=== PATIENT | female | born 1950 | race Caucasian/White ===

== ENCOUNTER → 2017-04-17 | Day surgery (SDC) | payer BC ==
[2017-03-27 13:47] VITALS: Ht 157.5 cm; Wt 75.0 kg
[~2017-04-17] VITALS: Ht 157.5 cm; Wt 75.0 kg
[~2017-04-17] MED LIST: ACET1TAB84 PO; BUPIVACAINE 0.25% 2.5MG/ML PF 10 ML VIAL ONE; EPP3/2 IM; IOPAMIDOL INJ 61% 15 ML VIAL ONE; LIDOCAINE HCL 1% MPF 5 ML VIAL ONE; LORA10CA2 PO; MELO15TA10 PO; MONT1TAB3 PO
--- NOTE | 2017-04-17 14:00 | History & Physical Bridge - SC ---
H&P Re-Evaluation Bridge Note: I have examined the patient, reviewed the History & Physical and in the interval since the performance of the History & Physical I have noted the following changes of clinical significance: No changes noted
[2017-04-17 14:17] VITALS: TEMP 36.6
--- NOTE | 2017-04-17 14:23 | Discharge Instructions ---
Discharge Instructions Date of Service Apr 17, 2017. Visit Reason for Visit: Sacroiliitis Discharge Discharge Diagnosis / Problem: low back pain Discharge Goals Goal(s): Decrease discomfort, Improve function Activity Recommendations Activity Limitations: resume your previous activity Anesthesia . Post Anesthesia Instructions: If you have had General Anesthesia or IV Sedation: * Do not drive today. * Resume driving when surgeon permits. * Do not make important decisions or sign legal documents today. * Call surgeon for: 1. Temperature elevations greater than 101 degrees F. 2. Uncontrollable pain. 3. Excessive bleeding. 4. Persistent nausea and vomiting. 5. Medication intolerance (nausea, vomiting or rash). * For nausea and vomiting use only clear liquids such as: tea, soda, bouillon until nausea subsides, then gradually increase diet as tolerated. * If you have any concerns or questions, call your surgeon's office. If physician is unavailable and it is an emergency, call 911 or go to the nearest emergency room. . Diet Recommendations Recommended Home Diet: resume previous diet Procedures Procedures Performed: LEFT SACROILIAC JOINT INJECTION Pending Studies Studies pending at discharge: no Medical Emergencies . Who to Call and When: Medical Emergencies: If at any time you feel your situation is an emergency, please call 911 immediately. . Non-Emergent Contact Non-Emergency issues call your: Specialist . . "Provider Documentation" section prepared by Murray Umanzor. .
[2017-04-17 14:30] VITALS: BP 135/75; PULSE 52; O2SAT 95
--- NOTE | 2017-04-17 16:13 | OPERATIVE REPORT ---
DATE OF OPERATION: 04/17/2017 PREOPERATIVE DIAGNOSIS: Left sacroiliitis. POSTOPERATIVE DIAGNOSIS: Same. PROCEDURE: Left sacroiliac joint injection under fluoroscopic guidance. INDICATIONS: The patient is a 66-year-old white female who underwent a left SI joint injection more than 2 years ago in April 2015. She reports that the pain has returned and is problematic to her. She was caring for her , who was in hospice and doing a lot of twisting and turning. She presents today for an SI joint injection to provide her with relief. PHYSICAL EXAMINATION: GENERAL: Pleasant female seated comfortably in no apparent distress. MUSCULOSKELETAL: Normal lower extremity strength. Intact sensation distally. Negative seated straight leg raise. Positive Audrey maneuver on the left and positive sacral compression maneuver. CONSENT: Verbal and written consent was obtained from the patient. Risks and benefits were reviewed. Risks include, but are not limited to abscess and allergic reaction. The patient wishes to proceed. DESCRIPTION OF PROCEDURE: The patient was taken back to the special procedures room of the [facility], where she was maintained in a prone position. Backside was cleansed with chlorhexidine x3 and a dry sterile dressing was applied. She did not have Betadine given her iodine allergy. Fluoroscope was used to identify the left SI joint and the overlying skin was anesthetized with 2.5 mL of lidocaine 1% with a 25-gauge 1-1/2 inch needle. A 25-gauge 3-1/2 inch spinal needle was then directed under fluoroscopic guidance into the joint. There was a give as it entered the joint. Isovue-300 contrast was not utilized given her allergic reaction and then she underwent injection after negative aspiration of 40 mg of Depo-Medrol and 2 mL of preservative free bupivacaine 0.25%. Injection was well tolerated. DISPOSITION: 1. The patient was taken out into the discharge recovery area, where she will be discharged home once discharge criteria have been met. 2. Follow up in the [facility] office in 4 weeks. I attest to the content of the Intraoperative Record and any orders documented therein. Any exception s are noted below.
== END | disposition home or self-care (01) ==
LOC: X.SURG 13:20
PROVIDERS: ATTEND Physical Medicine & Rehabilitation
DX: M46.1 Sacroiliitis, not elsewhere classified (principal)

== ENCOUNTER 2024-12-26 20:17 | Inpatient (IN) ==
--- OUTSIDE RECORDS SUMMARY | 2024-12-26 20:25 | External Medical Summary | Summary of Care ---
Author Name Unknown Organization [facility] Address [address] [facility] [place] [address] Phone [phone] Care Team Providers Care Security Control Assessor Name Role Phone Krystal Fuentes MD Primary Care Provide r Reason for Visit * Reason Comments Outpatient Testing Encounter Details Date Type Department Care Team (Late st Contact Info) Description 12/17/2024 8:50 AM EST Laboratory Laboratory [address] [place] [phone] [address] [place] [address] Renal cyst, right; Nephrolithiasis; Acute cystitis with hematuria Allergies No known active allergiesdocumented as of this encounter (statuses as of 12/17/2024) Medications loratadine (CLARITIN) 10 MG Tablet Take 1 Tablet by mouth in the morning. Active Acetaminophen ER 650 MG Oral Tablet Extended Release Take 1 Tablet by mouth every 8 hours as needed. Active Atorvastatin Calcium 20 MG Oral Tablet (Lipitor)Indicat ions:Dyslipidemi a, goal LDL below 130 Take 1 Tablet by mouth every night at bedtime. 90 Tablet 3 4 Active Meloxicam 15 MG Oral Tablet (Mobic)Indicatio ns:Primary localized osteoarthrosis, lower leg, unspecified laterality TAKE 1 PILL BY MOUTH ONCE A DAY FOR PAIN 90 Tablet 1 4 Active metFORMIN HCl 500 MG Oral Tablet (Glucophage)Cristina cations:Prediabe ximena Take 1 Tablet by mouth 2 times a day with morning and evening meals. 180 Tablet 1 4 Active Vitamin D3 1000 UNIT Oral Capsule Take by mouth. Activ e Nitrofurantoin Monohyd Macro 100 MG Oral Capsule (Macrobid)Indica tions:Acute cystitis without hematuria Take 1 Capsule by mouth in the morning and 1 Capsule before bedtime. Do all this for 10 days. With food until gone. 20 Capsule 5 12/21/19 25 Active Phenazopyridine HCl 200 MG Oral Tablet (Pyridium)Indica tions:Acute cystitis without hematuria Take 1 Tablet by mouth 3 times a day as needed (bladder pain). After meals for pain with urination 6 Tablet 1 5 Active documented as of this encounter (statuses as of 12/17/2024) Active Problems Problem Noted Date Diagnosed Date Trigger finger of right thumb 07/25/2023 Prediabetes 07/25/2023 Dyslipidemia, goal LDL below 100 07/25/2023 Calcium oxalate renal calculi 10/04/2019 Seasonal allergic rhinitis due to pollen 017 Need for SBE (subacute bacterial endocarditis) p rophylaxis 07/22/2016 Trigger ring finger of left hand 05/29/2015 Osteoarthrosis, unspecified whether generalized or localized, lower leg 04/17/2015 Lumbar pars defect 04/10/2015 Overview (05/29/2015): L5 Cough 03/27/2015 Overview (03/27/2015): since 01/08 Allergic conjunctivitis 03/27/2015 Bee sting-induced anaphylaxis 07/02/2013 Overview (03/28/2015): immediate nausea/vomiting, lightheadedness, dizziness and low blood pressure after sting by a ground insect Primary localized osteoarthrosis, lower leg Overview (06/12/2011): Dr Wallace, both knees documented as of this encounter (statuses as of 12/17/2024) Resolved Problems Problem Noted Date Diagnosed Date Resolved Date Severe obesity with body mas s index (BMI) of 35.0 to 39.9 with serious comorbidity 07/25/2023 Other allergic rhinitis 05/29/201503/28 Sacroiliitis 05/24/2015 04/13/2019 Overview (05/29/2015): left, injected Dr Umanzor Back pain 04/17/2015 05/29/2015 Shellfish allergy 03/28/2015 10/04/2019 Overview (08/18/2019): shrimp and lobster - immediate nausea and vomiting, shortness of breath, lightheadedness and low blood pressure; required emergency room Neg skin test and serum IgE Jul 2019 Pt does not want to proceed with challenge Ureterolithiasis 12/05/2013 05/29/2015 Overview (12/08/2013): punctate left ureteral calculus at UV junction with mild hydronephrosis Asthma with severity to be determined 04/19/2010 10/13/2013 Overview (02/05/2016): Per Asthma Taxonomy ICD-10 update of inactive term ADVANCE DIRECTIVE INFORMATION 08/01/2006 08/30/2024 Overview (08/01/2006): Yes, Copy scanned at patient level in the electronic medical record.(Go to Action, Patient File to view) Patient aware they must notify their healthcare provider of changes. Asthma, allergic 09/29/2001 04/19/2010 Other allergic rhinitis 12/2014 Overview (08/19/2017): ICD-10 update of inactive term Asthma, mild persistent 12/2014 documented as of this encounter (statuses as of 12/17/2024) Immunizations Name Administration Dates Next Due COVID-19 mRNA, LNP-s, No Pre serve, 2-Dose Series (Moderna) 01/04/2021,12/07/2020 COVID-19, MRNA-LNP, PF, 50 M CG/0.5 mL, 12 YRS AND ABOVE, IM (MODERNA-Spikevax) 07/05/2024,07/26/2023 COVID-19, mRNA, LNP-s, PF, B ooster, 100mcg/0.5mg (Moderna) 09/03/2021 Covid-19, Mrna, Lnp-s, Pf, B ivalent, 50 Mcg, IM, 12 yrs and above (Moderna) 07/26/2022 Pneumococcal Conjugate Vacc, 13 Valent (Prevnar) 07/22/2016 Pneumococcal Polysaccharide PPV23 (Pneumovax) ,06/12/2011 Season Influenza, Quad, PF, Adjuvanted, 65+ Yrs, IM (FLUAD) 07/08/2020 TDAP, Age 7 and older, IM (Adacel) 06/12/2011 documented as of this encounter Social History Tobacco Use Types Packs/Day Years Used Date Smoking Tobacco: Former Cigarettes 0.5 11 0 10/27/1968 - 10/27/1979 Smokeless Tobacco: Never Comments:no passive smoke Alcohol Use Standard Drinks/Week Comments No 0 (1 standard drink = 0.6 oz pur e alcohol) PHQ-2 Answer Date Recorded PHQ-2 Score 0 06/05/2020 Hunger Vital Sign Answer Date Recorded Within the past 12 months, y ou worried that your food would run out before you got the money to buy more. Never true 07/18/20 24 Within the past 12 months, t he food you bought just didn't last and you didn't have money to get more. Never true 07/18/2024 Childcare Answer Date Recorded Do you feel overwhelmed with taking care of a child, family member or friend? No 07/18/2024 Does your family need help f inding childcare? (Household - for ages 0-17 years) Not on file 07/18/2024 Clothing Answer Date Recorded Have you been unable to get clothing when it was really needed? No 07/18/2024 Is your family able to get c lothes or diapers when needed? (Household - for ages 0-17 years) Not on file 07/18/2024 Personal Safety Answer Date Recorded Do you feel unsafe or have concerns for your saf ety? No 07/18/2024 Do you have concerns for you r family's safety? (Household - for ages 0-17 years) Not on file 07/18/2024 Utilities Answer Date Recorded Do you have trouble paying y our heating, water, or electric bill? No 07/18/2024 Is your family able to pay t he heat, water, or electric bill? (Household - for ages 0-17 years) Not on file 07/18/2024 Does your family have access to good internet? (Household - for ages 0-17 years) Not on file 07/18/2024 Employment Status Answer Date Recorded Are you unemployed or without regular income? No 07/18/2024 Does the household have a re gular source of income? (Household - for ages 0-17 years) Not on file 07/18/2024 Social Connections Answer Date Recorded How often do you feel lonely or isolated from those around you? Sometimes 07/18/2024 Financial Resource Strain Answer Date R ecorded Do you have any trouble payi ng for your medications, or do you think you might in the future? No 07/18/2024 Does your family have troubl e paying for medicine? (Household - for ages 0-17 years) Not on file 07/18/2024 Transportation Needs Answer Date Record ed Do you have trouble getting a ride to medical visits or work? (Adult - for ages 18 years and over) Not on file 07/18/2024 Does your family have a hard time getting a ride to doctors visits? (Household - for ages 0-17 years) Not on file 07/18/2024 Has lack of transportation k ept you from medical appointments, meetings, work, or from getting things needed for daily living? Check all that apply. No 07/18/2024 Do you (or your family) have trouble finding or paying for a ride (transportation)? (Household - for ages 0-17 years) Not on file 07/18/2024 Housing Stability Answer Date Recorded Do you currently live in a s helter or have no steady place to sleep at night? No 07/18/2024 Do you think you are at risk of becoming homeless? (Adult - for ages 18 years and over) Not on file 07/18/2024 Does your family worry about paying for your home or becoming homeless? (Household - for ages 0-17 years) Not on file 0 07/18/2024 Are you homeless or worried that you might be in the future? No 07/18/2024 Are you (or your family) leah eless or worried that you might be in the future? (Household - for ages 0-17 years) Not on file Food Insecurity Answer Date Recorded Do you need food for this week? No 07/18/2024 Are you able to get enough f ood for your family? (Household - for ages 0-17 years) Not on file 07/18/2024 Does your family need food t his week? (Household - for ages 0-17 years) Not on file 07/18/2024 Do you always have enough fo od for your family? (Household - for ages 0-17 years) Not on file 07/18/2024 Food Insecurity Answer Date Recorded Within the past 12 months, y ou worried that your food would run out before you got the money to buy more. Never true 07/18/20 24 Within the past 12 months, t he food you bought just didn't last and you didn't have money to get more. Never true 07/18/2024 Do you need food for this week? 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 Not on file Not on file documented as of this encounter Plan of Treatment Upcoming Encounters Date Type Department Care Team (Late st Contact Info) Description 12/20/2024 12:50 PM EST Office Visit Urogynecology [facility] [address] [place] [address] Chase Herrera MD [address] [place] [phone] 12/23/2024 11:30 AM EST Imaging Radiology [facility] [facility] [address] [place] [phone] 12/27/2024 6:20 PM EST Office Visit Family [address] [phone] Krystal Fuentes MD [address] [place] [address] [place] [phone] Pending Results Name Type Priority Associated Diagnoses Date /Time CREATININE Lab Routine Renal cyst, right Nephrolithiasis Acute cystitis with hematuria 12/17/2024 8:45 AM EST Health Maintenance Due Date Last Done Comments DXA Scan 1950 Hepatitis C Screening 1968 Cologuard 1995 Colonoscopy 1995 Colorectal Cancer Screening 1995 Fecal Occult Blood Test 1995 Sigmoidoscopy 1995 Zoster Vaccines (1 of 2) 2000 Adult Wellness Visit 2016 Depression Screening 06/05/2021 06/05/2020 DTap/Tdap Vaccines (2 - Td or Tdap) 06/12/2021 06/12/2011 Influenza Vaccine (FLU shot) (#1) 2024 07/08/2020 COVID-19 Vaccine ( season) 2025 07/05/2024, 07/26/2023, 07/26/2022, Additional history exists HbA1c 07/19/2025 07/19/2024, 0 05/2024, 07/15/2023 Mammogram 10/04/2025 10/04/2024, 1204/2023, 01/10/2022, Additional history exists Lipid Panel 07/19/2029 07/19/2024, 030 05/2024, 07/15/2023, Additional history exists Pneumococcal Vaccine: 50+ Years Completed 07/12/2019, 07/22/2016, 06/12/2011 HPV (Gardasil) Vaccine Aged Out No lo nger eligible based on patient's age to complete this topic Hepatitis B Vaccine Aged Out No longe r eligible based on patient's age to complete this topic MENINGOCOCCAL (MENACTRA/MENVEO) Aged Out No longer eligible based on patient's age to complete this topic Meningitis B Vaccine (Bexsero/Trumemba) Aged Out No longer eligible based on patient's age to complete this topic documented as of this encounter Medical Devices Not on filedocumented as of this encounter Visit Diagnoses Diagnosis Renal cyst, right Unspecified congenital cystic kidney disease Nephrolithiasis Calculus of kidney Acute cystitis with hematuria Acute cystitis documented in this encounter Advance Directives Documents on File Type Date Recorded Patient Refund Clerk Expl anation Advance Directives and Living Will 12/08/2017 ADVANCE DIRECTIVE ADVANCE HEALTH CARE DIRECTIVE Care Teams Security Control Assessor Relationship Specialty Start Date End Date Krystal Fuentes MD [address] [place] [address] [place] [phone] PCP - General Family Medicine 08/06/19 documented as of this encounter
--- OUTSIDE RECORDS SUMMARY | 2024-12-26 20:25 | External Medical Summary | Summary of Care ---
Author Name Unknown Organization [facility] Address [address] [facility] [place] [address] Phone [phone] Care Team Providers Care Bilingual Medical Receptionist Name Role Phone Krystal Fuentes MD Primary Care Provide r Reason for Visit * Reason Onset Date Comments Referral 12/14/2024 Encounter Details Date Type Department Care Team (Late st Contact Info) Description 12/14/2024 Telephone Family Medicine [address] [place] [phone] Krystal Fuentes MD [address] [place] [address] [place] [phone] Referral Allergies No known active allergiesdocumented as of this encounter (statuses as of 12/14/2024) Medications loratadine (CLARITIN) 10 MG Tablet Take 1 Tablet by mouth in the morning. Active Acetaminophen ER 650 MG Oral Tablet Extended Release Take 1 Tablet by mouth every 8 hours as needed. Active Atorvastatin Calcium 20 MG Oral Tablet (Lipitor)Indicat ions:Dyslipidemi a, goal LDL below 130 Take 1 Tablet by mouth every night at bedtime. 90 Tablet 3 01/02/2024 Active Meloxicam 15 MG Oral Tablet (Mobic)Indicatio ns:Primary localized osteoarthrosis, lower leg, unspecified laterality TAKE 1 PILL BY MOUTH ONCE A DAY FOR PAIN 90 Tablet 1 06/29/2024 Active metFORMIN HCl 500 MG Oral Tablet (Glucophage)Cristina cations:Prediabe ximena Take 1 Tablet by mouth 2 times a day with morning and evening meals. 180 Tablet 1 06/29/2024 Active Vitamin D3 1000 UNIT Oral Capsule Take by mouth. Active Nitrofurantoin Monohyd Macro 100 MG Oral Capsule (Macrobid)Indica tions:Acute cystitis without hematuria Take 1 Capsule by mouth in the morning and 1 Capsule before bedtime. Do all this for 10 days. With food until gone. 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 Not on file documented as of this encounter Miscellaneous Notes * Telephone Encounter - Prisca Hart OSA - 12/14/2024 11:48 AM EST LM for pt to callback and schedule CT documented in this encounter Plan of Treatment Upcoming Encounters Date Type Department Care Team (Late st Contact Info) Description 12/15/2024 12:45 PM EST Imaging Radiology [facility] [address] [facility] [address] [place] [phone] 12/20/2024 12:50 PM EST Office Visit Urogynecology [facility] [address] [place] [phone] Chase Herrera MD [address] [place] [phone] 08/19/2025 8:20 AM EDT Office Visit Family Medicine [address] [place] [phone] Krystal Fuentes MD [address] [place] [address] [place] [phone] Health Maintenance Due Date Last Done Comments [...] 07/26/2022, Additional history exists HbA1c 07/19/2025 07/19/2024, 03/0 05/2024, 07/15/2023 Mammogram 10/04/2025 10/04/2024, 120 04/2023, 01/10/2022, Additional history exists Lipid Panel 07/19/2029 07/19/2024, 03/0 05/2024, 07/15/2023, Additional history exists Pneumococcal Vaccine: [...] Not on filedocumented as of this encounter Advance Directives Documents on File Type Date Recorded Patient Tail Board Man Expl anation Advance Directives and Living Will 12/08/2017 ADVANCE DIRECTIVE ADVANCE HEALTH CARE DIRECTIVE Care Teams Bilingual Medical Receptionist Relationship Specialty Start Date End Date Krystal Fuentes MD [address] [place] [address] [place] [phone] PCP - General Family Medicine 08/06/19 documented as of this encounter
--- OUTSIDE RECORDS SUMMARY | 2024-12-26 20:25 | External Medical Summary | Summary of Care ---
Author Name Unknown Organization [facility] Address [address] [facility] [place] [address] Phone [phone] Care Team Providers Care Irrigator Valve Pipe Name Role Phone Krystal Fuentes MD Primary Care Provide r Reason for Visit * Reason Comments NEW PATIENT * Evaluate & Treat - Unlimited Visits (Within 10 days (routine)) - Authorized Specialty Diagnoses / Procedures Referred By Josey sampson Referred To Contact FOOD PROCESSOR - Urogynecology / Gynecology Urology Diagnoses Bladder prolapse, female, acquired Krystal Fuentes MD [address] [place] [address] [place] [address] Phone: tel: fax: Referral ID Status Reason Start Date Expiration Date Visits Requested Visits Authorized [id number] Authorized Specialty Services Required 12/11/[phone] Encounter Details Date Type Department Care Team (Late st Contact Info) Description 12/20/2024 12:50 PM EST [facility] [place] [address] Chase Herrera MD [address] [place] [address] Atrophic vaginitis*; Cystocele, midline Allergies No known active allergiesdocumented as of this encounter (statuses as of 12/20/2024) Medications loratadine (CLARITIN) 10 MG Tablet Take [...] with urination 6 Tablet 1 5 Active Estradiol 0.1 MG/GM Vaginal Cream (Estrace) Apply pea sized amount (0.5 gm) vaginally every other night. 42.5 g 3 5 Active documented as of this encounter (statuses as of 12/20/2024) Active Problems Problem Noted Date Diagnosed Date [...] as of this encounter (statuses as of 12/20/2024) Resolved Problems Problem Noted Date Diagnosed Date [...] as of this encounter (statuses as of 12/20/2024) Immunizations Name Administration Dates Next Due COVID-19 [...] 07/18/2024 Does the household have a re lar source of income? (Household - for ages [...] on file documented as of this encounter Last Filed Vital Signs Vital Sign Reading Time Taken Comments Blood Pressure 126/84 12/20/2024 12:32 PM EST Pulse - - Temperature - - Respiratory Rate - - Oxygen Saturation - - Inhaled Oxygen Concentration - - Weight 78.9 kg (174 lb) 12/20/2024 12:32 PM EST Height 154.9 cm (5' 1") 12/20/2024 12:32 PM EST Body Mass Index 32.88 12/20/2024 12:32 PM EST documented in this encounter Progress Notes * Chase Herrera MD - 12/20/2024 12:36 PM EST Carole Westbrook is a 74 year old female P 1 here for evaluation of prolapse. Referred by Krystal Fuentes MD. At the beginning of October, Carole Westbrook complains of feeling vaginal bulge. She has urinary urgency and frequency every 1-2 hours. Nocturia 3 times a night. She doesn't feel that she is emptying herbladder completely. She denies incontinence Urinary: Leakage: denies She has a persistent sense of incomplete bladder emptying. Prior/current treatment include: none She has history of kidney stones Voiding detail: Daytime frequency: every 1-2 hours Urgency yes Nocturia:3 Hesitancy no Straining no Hematuria no Postvoid dribbling no Postvoid urgency no Manual reduction no Prolapse: She admits a palpable bulge. Her bulge symptoms have worsened over the last 6 weeks Prior/ current treatments include none GI: Bowel habits: normal bowel movement She denies fecal incontinence. Prior/ current treatments include: none Gynecologic history: hysterectomy at age 29. Medical History: Patient Active Problem List Diagnosis Primary localized osteoarthrosis, lower leg Bee sting-induced anaphylaxis Cough Allergic conjunctivitis Osteoarthrosis, unspecified whether generalized or localized, lower leg Lumbar pars defect Trigger ring finger of left hand Need for SBE (subacute bacterial endocarditis) prophylaxis Seasonal allergic rhinitis due to pollen Calcium oxalate renal calculi Trigger finger of right thumb Prediabetes Dyslipidemia, goal LDL below 100 Past Medical History: Diagnosis Date Acute pancreatitis 04/27/07 seen in [place] [facility], told she had pancreatitis with lipase 333 and normal amylase, 35 Allergic conjunctivitis 03/27/2015 Allergic rhinitis due to other allergen Asthma, mild persistent 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 Surgical History: Past Surgical History: Procedure Laterality Date CT ABD/PELVIS W WO IV CONTRAST AND W ORAL CONT 04/10/15 3.5 mm stone in bladder, reflecting recently passed left ureteral stone CT ABDOMEN/PELVIS 12/05/13 nonobstructing punctate calcifications left kindey with a punctate stone in left UV junction with mild hydronephrosis CYSTO/URETERO W/LITHOTRIPSY Left 09/10/2019 CYSTOURETHROSCOPY URETEROSCOPY WITH LITHOTRIPSY AND STENT INSERTION performed by Mary Alfonso MD at OR [facility] MAMMOGRAM SCREENING BILATERAL 08/06/13 scattered fibroglandular densities MAMMOGRAM SCREENING BILATERAL 10/14/14 scattered fibroglandular densities, category 1 normal MAMMOGRAM SCREENING BILATERAL Bilateral 10/24/15 scattered fibroglandular densities, category 1 normal MAMMOGRAM SCREENING BILATERAL Bilateral 07/23/2019 scattered fibroglandular densities, category 2 MAMMOGRAM SCREENING-BILATERAL 12/14/01 ok TOTAL HYSTERECTOMY 1978 OB History 1 Para 1 Term 1 AB Living 1 SAB IAB Ectopic Multiple Live Births Vaginal deliveries: 1 C/S: 0 Allergies: Review of patient's allergies indicates: No Known Allergies Active Medications: Current Outpatient Medications Medication Sig Dispense Refill loratadine (CLARITIN) 10 MG Tablet Take 1 Tablet by mouth in the morning. Acetaminophen ER 650 MG Oral Tablet Extended Release Take 1 Tablet by mouth every 8 hours as needed. Atorvastatin Calcium 20 MG Oral Tablet (Lipitor) Take 1 Tablet by mouth every night at bedtime. 90 Tablet 3 Meloxicam 15 MG Oral Tablet (Mobic) TAKE 1 PILL BY MOUTH ONCE A DAY FOR PAIN 90 Tablet 1 metFORMIN HCl 500 MG Oral Tablet (Glucophage) Take 1 Tablet by mouth 2 times a day with morning andevening meals. 180 Tablet 1 Vitamin D3 1000 UNIT Oral Capsule Take by mouth. Nitrofurantoin Monohyd Macro 100 MG Oral Capsule (Macrobid) Take 1 Capsule by mouth in the morning and 1 Capsule before bedtime. Do all this for 10 days. With food until gone. 20 Capsule 0 Phenazopyridine HCl 200 MG Oral Tablet (Pyridium) Take 1 Tablet by mouth 3 times a day as needed (bladder pain). After meals for pain with urination 6 Tablet 1 No current facility-administered medications for this visit. 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 (Adult - for ages 18 years and over): No Food Insecurity: No Food Insecurity (07/18/2024) Food Insecurity Worried About Running Out of Food in the Last Year: Never true Ran Out of Food in the Last Year: Never true Do you need food for this week? (Adult - for ages 18 years and over): No Transportation Needs: No Transportation Needs (07/18/2024) Transportation Needs Has lack of transportation kept you from medical appointments, meetings, work, or from getting things needed for daily living? Check all that apply. (Adult - for ages 18 years and over): No Social Connections: Socially Integrated (07/18/2024) Social Connections How often do you feel lonely or isolated from those around you? (Adult - for ages 18 years and over): Sometimes Housing Stability: Low Risk (07/18/2024) Housing Stability Do you currently live in a half-way or have no steady place to sleep at night? (Adult - for ages 18 years and over): No Are you homeless or worried that you might be in the future? (Adult - for ages 18 years and over): No Family History: Family History Problem Relation Name Age of Onset Heart Disorder Father heart attack Diabetes Father Breast Cancer No significant family history Food Service Sales Representatives Documentation: Provider requested golf ball winder Name of Food Service Sales Representatives: Marguerite Arreola Blood pressure 126/84, height 1.549 m (5' 1"), weight 78.9 kg (174 lb), not currently . Blood pressure %brinda are not available for patients who are 18 years or older. Body mass index is 32.88 kg/m. EXAM: Well developed well nourished female in no apparent distress. Alert oriented x3 HEENT: NC AT HEART: Normal peripheral pulse, edema neg THYROID: no obvious neck mass LUNG: No increased respiratory effort ABDOMEN: Soft, NT, ND, no masses PELVIC EXAM: Ext. Gen: Normal external female genitalia, no vulvar lesions. Clitoris, labia, minor vestibular glands and urethral meatus appear normal. Urethra and bladder palpated non-tender with no masses and no expressible exudate. Vagina atrophic without lesions. Cervix: absent BIMANUAL EXAM: No adnexal masses or tenderness elicited. 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 positive tenderness elicited on palpation Rectovaginal exam: perianal area normal, anus normal, digital rectal exam deferred Aa -1 Ba -1 C -7 GH 2 PB 3 TVL 10 Ap -2 Bp -2 D The following data points/ labs were reviewed: Results for orders placed or performed in visit on 12/17/24 CREATININE Result Value Ref Range CREATININE 0.6 0.5 - 1.0 mg/dL EGFR >90 >=60 mL/min PVR: 26 ml via bladder scan Impression: This is a 74 year old with: Atrophic vaginitis (Primary) Cystocele, midline Atrophy: I recommended topical estrogen cream. Risks, benefits, and alteratives reviewed. Cystocele: I reviewed the stage 2 cystocele. I reviewed therapy options including Kegel exercises, pessary therapy, and surgery. She will practice Kegel exercises daily. Return in 1 month for repeat exam. All questions answered. She will see Urology for her history of renal stones and right renal exophytic cyst. Chase Herrera MD 12/20/2024 12:36 PM I spent a total of 55 minutes on the date of service in preparation, delivery, and documentation ofthe care provided to Carole Westbrook excluding any time spent in the performance of separately billedservices. documented in this encounter Nursing Notes * Marugerite Arreola LPN - 12/20/2024 12:31 PM EST Pt presents to clinic as a new pt Pain in vaginal area, and when pt urinates was taking pyridium, took last dose on Friday, 10 day course of macrobid. Last dose is today at HS Pt states can feel bulge and tissues at vaginal opening, states is out all time time Urgency- Making it to restroom Frequency- Q1-2H Nocturia- 3x Feels incomplete emptying with voiding PVR- 26 documented in this encounter Plan of Treatment Upcoming Encounters Date Type Department Care Team (Late st Contact Info) Description 12/23/2024 11:30 AM EST Imaging Radiology [facility] [address] [place] [phone] 12/27/2024 6:20 PM EST Office Visit Family Medicine [address] [place] [phone] Krystal Fuentes MD [address] [place] [address] [place] [address] 02/01/2025 2:10 PM EDT Office Visit Urogynecology [facility] [address] [place] [address] Chase Herrera MD [address] [place] [phone] 08/09/2025 11:00 AM EDT Office Visit Urology, [facility] [address] [place] [address] Abdelrahman Fox MD [address] [place] [address] Health Maintenance Due Date Last Done Comments [...] 07/19/2024, 03/0 05/2024, 07/15/2023 Mammogram 10/04/2025 10/04/2024, 12/0 04/2023, 01/10/2022, Additional history exists Lipid Panel [...] as of this encounter Visit Diagnoses Diagnosis Atrophic vaginitis- Primary Postmenopausal atrophic vaginitis Cystocele, midline documented in this encounter Advance Directives Documents on File Type Date Recorded Patient Erp Developer Expl anation Advance Directives and Living Will 12/08/2017 ADVANCE DIRECTIVE ADVANCE HEALTH CARE DIRECTIVE Care Teams Irrigator Valve Pipe Relationship Specialty Start Date End Date Krystal Fuentes MD [address] [place] [address] [place] [phone] PCP - General Family Medicine 08/06/19 documented as of this encounter
--- OUTSIDE RECORDS SUMMARY | 2024-12-26 20:25 | External Medical Summary ---
Author Name Unknown Address Unknown Organization K01:[facility] [place] - [address] [place] [address] Laboratory Report Ordering Provider Test Date Status RUSSELL MART 12/17/2024 08:45:23 Final Observation Date Value Abnormality Reference (Units ) Status Creatinine 12/17/2024 08:45:23 0.6 0.5-1.0 (mg/dL) Final Glomerular filtration rate/1.73 sq M.predicted [Volume Rate/Area] in Serum, Plasma or Blood by Creatinine-based formula (CKD-EPI) 12/17/2024 08:45:23 >90 >=60 (mL/min) Final eGFR is calculated based on the CKD-EPI 2020 equation. Performing Location [facility] [place] - [address] [place] [address]
--- OUTSIDE RECORDS SUMMARY | 2024-12-26 20:25 | External Medical Summary | Summary of Care ---
Author Name Unknown Organization [facility] Address [address] [place] [place] [address] Phone [phone] Care Team Providers Care Pegger Name Role Phone Krystal Fuentes MD Primary Care Provide r Reason for Visit * Reason Onset Date Comments Medication Refill 12/20/2024 Encounter Details Date Type Department Care Team (Late st Contact Info) Description 12/20/2024 Refill Family Medicine [address] [place] [phone] Krystal Fuentes MD [address] [place] [address] [place] [phone] Acute cystitis without hematuria Allergies No known active allergiesdocumented as of this encounter (statuses as of 12/21/2024) Medications loratadine (CLARITIN) 10 MG Tablet Take [...] as of this encounter (statuses as of 12/21/2024) Active Problems Problem Noted Date Diagnosed Date [...] as of this encounter (statuses as of 12/21/2024) Resolved Problems Problem Noted Date Diagnosed Date Resolved Date Severe obesity with body mas s index (BMI) of 35.0 to 39.9 with serious comorbidity 07/25/2023 Other allergic rhinitis 05/29/2015/04/2017 Sacroiliitis 05/24/2015 04/13/2019 Overview (05/29/2015): left, injected [...] as of this encounter (statuses as of 12/21/2024) Immunizations Name Administration Dates Next Due COVID-19 [...] Date 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 After meals for pain with urinationRefused By: Sarah BAUM for Refusal: Duplicate Request documented in this encounter Plan of Treatment Upcoming Encounters Date Type Department Care Team (Late st Contact Info) Description 12/23/2024 11:30 AM EST Imaging Radiology [facility] [facility] [address] [place] [phone] 12/27/2024 6:20 PM EST Office Visit Family Medicine [address] [place] [phone] Krystal Fuentes MD [address] [place] [address] [place] [phone] 02/01/2025 2:10 PM EDT Office Visit Urogynecology [facility] [address] [place] [address] Chase Herrera MD [address] [place] [address] 08/09/2025 11:00 AM EDT Office Visit Urology, [facility] [address] [place] [address] Abdelrahman Fox MD [address] [place] [address] Health Maintenance Due Date Last Done Comments [...] 07/19/2024, 0 05/2024, 07/15/2023 Mammogram 10/04/2025 10/04/2024, 0 04/2023, 01/10/2022, Additional history exists Lipid Panel 07/19/2029 07/19/2024, 0 05/2024, 07/15/2023, Additional history exists Pneumococcal Vaccine: [...] as of this encounter Visit Diagnoses Diagnosis Acute cystitis without hematuria Acute cystitis documented in this encounter Advance Directives Documents on File Type Date Recorded 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
--- OUTSIDE RECORDS SUMMARY | 2024-12-26 20:25 | External Medical Summary | Summary of Care ---
Author Name Unknown Organization [facility] Address [address] [facility] [address] Phone [phone] Care Team Providers Care Community Assistant Name Role Phone Krystal Fuentes MD Primary Care Provide r Reason for Visit * Reason Onset Date Comments Referral 12/14/2024 Encounter Details Date Type Department Care Team (Late st Contact Info) Description 12/14/2024 Telephone Family Medicine [address] [place] [phone] Krystal Fuentes MD [address] [place] [address] [place] [phone] Referral Allergies No known active allergiesdocumented as of this encounter (statuses as of 12/15/2024) Medications loratadine (CLARITIN) 10 MG Tablet Take [...] as of this encounter (statuses as of 12/15/2024) Active Problems Problem Noted Date Diagnosed Date [...] as of this encounter (statuses as of 12/15/2024) Resolved Problems Problem Noted Date Diagnosed Date [...] as of this encounter (statuses as of 12/15/2024) Immunizations Name Administration Dates Next Due COVID-19 [...] encounter Miscellaneous Notes * Telephone Encounter - Hailey Hoover LPN - 12/15/2024 2:11 PM EST Pt is scheduled for CT * Telephone Encounter - Prisca Hart OSA - 12/14/2024 11:48 AM EST LM for pt to callback and schedule CT documented in this encounter Plan of Treatment Upcoming Encounters Date Type Department Care Team (Late st Contact Info) Description 12/20/2024 12:50 PM EST Office Visit Urogynecology [facility] [address] [place] [address] Chase Herrera MD [address] [place] [address] 12/23/2024 11:30 AM EST Imaging Radiology [facility]st [facility] [place] [address] [place] [phone] 12/27/2024 6:20 PM EST Office Visit Family Medicine [address] [place] [phone] Krystal Fuentes MD [address] [place] [address] [place] [phone] Health Maintenance Due Date Last Done Comments [...] 07/19/2024, 03/0 05/2024, 07/15/2023 Mammogram 10/04/2025 10/04/2024, 0 04/2023, [...] Documents on File Type Date Recorded Patient Superintendent Menagerie Expl anation Advance Directives and Living Will 12/08/2017 ADVANCE DIRECTIVE ADVANCE HEALTH CARE DIRECTIVE Care Teams Community Assistant Relationship Specialty Start Date End Date Krystal Fuentes MD [address] [place] [address] [place] [phone] PCP - General Family Medicine 08/06/19 documented as of this encounter
--- OUTSIDE RECORDS SUMMARY | 2024-12-26 20:25 | External Medical Summary | Summary of Care ---
Author Name Unknown Organization [facility] Address [address] [facility] [place] [address] Phone [phone] Care Team Providers Care Cardiovascular Rn Name Role Phone Krystal Fuentes MD Primary Care Provide r Encounter Details Date Type Department Care Team (Late st Contact Info) Description 12/16/2024 Orders Only PATIENT PORTAL DO NOT DELETE THIS DEPT USED BY [place] [id number] Allergies No known active allergiesdocumented as of this encounter (statuses as of 12/16/2024) Medications loratadine (CLARITIN) 10 MG Tablet Take [...] as of this encounter (statuses as of 12/16/2024) Active Problems Problem Noted Date Diagnosed Date [...] as of this encounter (statuses as of 12/16/2024) Resolved Problems Problem Noted Date Diagnosed Date [...] as of this encounter (statuses as of 12/16/2024) Immunizations Name Administration Dates Next Due COVID-19 [...] 12/20/2024 12:50 PM EST Office Visit Urogynecology [facility] [address] [place] [phone] Chase Herrera MD [address] [place] [phone] 12/23/2024 11:30 AM EST Imaging Radiology 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
--- OUTSIDE RECORDS SUMMARY | 2024-12-26 20:26 | External Medical Summary | Summary of Care ---
Author Name Unknown Organization [facility] Address [address] [place] [address] Phone [phone] Care Team Providers Care Frame Polisher Name Role Phone Krystal Fuentes MD Primary Care Provide r Reason for Visit * Reason Comments Re-Check Encounter Details Date Type Department Care Team (Late st Contact Info) Description 07/19/2024 1:00 PM EDT Office Visit Family Medicine [address] [place] [phone] Krystal Fuentes MD [address] [place] [address] [place] [phone] Prediabetes*; Encounter for screening mammogram for breast cancer; Dyslipidemia, goal LDL below 100; Nephrolithiasis Allergies Active Allergy Reactions Criticality Noted Date Comments Clindamycin Unknown 07/06/2001 ? Rash in her 40's Erythromycin Rash 07/06/2001 documented as of this encounter (statuses as of 07/19/2024) Medications Medication Sig Dispensed Refills Start Date End Date Status loratadine (CLARITIN) 10 MG Tablet Take 1 Tablet by mouth in the morning. Active Acetaminophen ER 650 MG Oral Tablet Extended Release Take 1 Tablet by mouth every 8 hours as needed. Active Atorvastatin Calcium 20 MG Oral Tablet (Lipitor)Indicati ons:Dyslipidemia, goal LDL below 130 Take 1 Tablet by mouth every night at bedtime. 90 Tablet 3 01/02/2024 Active Meloxicam 15 MG Oral Tablet (Mobic)Indication s:Primary localized osteoarthrosis, lower leg, unspecified laterality TAKE 1 PILL BY MOUTH ONCE A DAY FOR PAIN 90 Tablet 1 06/29/2024 Active metFORMIN HCl 500 MG Oral Tablet (Glucophage)Indic ations:Prediabete s Take 1 Tablet by mouth 2 times a day with morning and evening meals. 180 Tablet 1 06/29/2024 Active Tamsulosin HCl 0.4 MG Oral Capsule (Flomax)Indicatio ns:Flank pain Take 1 Capsule by mouth in the morning. 14 Capsule 01/02/2024 07/19/2024 Discontinued documented as of this encounter (statuses as of 07/19/2024) Active Problems Problem Noted Date Diagnosed Date Trigger finger of right thumb 07/25/2023 Prediabetes 07/25/2023 Dyslipidemia, goal LDL below 100 07/25/2023 Calcium oxalate renal calculi 10/04/2019 Seasonal allergic rhinitis due to pollen 017 Need for SBE (subacute bacterial endocarditis) p rophylaxis 07/22/2016 Trigger ring finger of left hand 05/29/2015 Osteoarthrosis, unspecified whether generalized or localized, lower leg 04/17/2015 Lumbar pars defect 04/10/2015 Overview: L5 Cough 03/27/2015 Overview: since 01/08 Allergic conjunctivitis 03/27/2015 Bee sting-induced anaphylaxis 07/02/2013 Overview: immediate nausea/vomiting, lightheadedness, dizziness and low blood pressure after sting by a ground insect ADVANCE DIRECTIVE INFORMATION 08/01/2006 Overview: Yes, Copy scanned at patient level in the electronic medical record.(Go to Action, Patient File to view) Patient aware they must notify their healthcare provider of changes. Primary localized osteoarthrosis, lower leg Overview: Dr Wallace, both knees documented as of this encounter (statuses as of 07/19/2024) Resolved Problems Problem Noted Date Diagnosed Date Resolved Date Severe obesity with body mas s index (BMI) of 35.0 to 39.9 with serious comorbidity 07/25/2023 Other allergic rhinitis 05/29/201503/28 Sacroiliitis 05/24/2015 04/13/2019 Overview: left, injected Dr Umanzor Back pain 04/17/2015 05/29/2015 Shellfish allergy 03/28/2015 10/04/2019 Overview: shrimp and lobster - immediate nausea and vomiting, shortness of breath, lightheadedness and low blood pressure; required emergency room Neg skin test and serum IgE Jul 2019 Pt does not want to proceed with challenge Ureterolithiasis 12/05/2013 05/29/2015 Overview: punctate left ureteral calculus at UV junction with mild hydronephrosis Asthma with severity to be determined 04/19/2010 10/13/2013 Overview: Per Asthma Taxonomy ICD-10 update of inactive term Asthma, allergic 09/29/2001 04/19/2010 Other allergic rhinitis 12/2014 Overview: ICD-10 update of inactive term Asthma, mild persistent 12/2014 documented as of this encounter (statuses as of 07/19/2024) Immunizations Name Administration Dates Next Due COVID-19 mRNA, LNP-s, No Pre serve, 2-Dose Series (Moderna) 01/04/2021,12/07/2020 COVID-19, MRNA-LNP, 23-24, P F, 50 MCG/0.5 mL, 12 YRS AND ABOVE, IM (MODERNA-Spikevax) [...] 07/18/2024 Transportation Needs Answer Date Record ed READ ONLY Do you have troubl e getting a ride to medical visits or work? Never True 07/18/2024 Does your family have a hard [...] place to sleep at night? No 07/18/2024 READ ONLY Do you think you a re at risk of becoming homeless? No 07/18/2024 Does your family worry about paying [...] ages 0-17 years) Not on file 07/18/2024 Sex and Gender Information Value Date Recorded Sex Assigned at Female 06/10/2023 2:08 PM EDT Gender Identity Female 06/10/2023 2:08 PM EDT Sexual Orientation Straight 07/19/2023 6: 41 AM EDT Job Start Date Occupation Industry Not on file Not on file Not on file documented as of this encounter Last Filed Vital Signs Vital Sign Reading Time Taken Comments Blood Pressure 112/68 07/19/2024 12:55 PM EDT Pulse 76 07/19/2024 12:55 PM EDT Temperature 36.6 C (97.9 F) 07/19/2024 12:55 PM E DT Respiratory Rate - - Oxygen Saturation 92% 07/19/2024 12:55 PM EDT Inhaled Oxygen Concentration - - Weight 79.8 kg (176 lb) 07/19/2024 12:55 PM EDT Height 154.9 cm (5' 1") 07/19/2024 12:55 PM EDT Body Mass Index 33.25 07/19/2024 12:55 PM EDT documented in this encounter Progress Notes * Krystal Fuentes MD - 07/19/2024 1:04 PM EDT Subjective: Carole Westbrook is a 73 year old female. Chief Complaint Patient presents with Re-Check HPI: Brief Clinical History Ms. Westbrook is a 73 year old female last seen in Family [facility] on 01/02/2024 by Kenrick Garcias She has a h/o the following chronic conditions indicated on the problem list: Chronic Conditions None Has been doing well. Has been watching her diet more closely after A1C was 6.5 in Junend has lost about 15 pounds. Has been checking her blood pressures at home and they have been under 120/80. No chest pain or shortness of breath. No h/o hypertension. Her home cuff compared to ours today is accurate. Got her COVID 19 booster at the pharmacy. Declines other vaccines. Will schedule mammogram. Was seen here 01/02/24 with a kidney stone. Took a short course of Flomax and passed the kidney stoneat home. Results for orders placed or performed in visit on 01/02/24 HEMOGLOBIN A1C Result Value Ref Range Hemoglobin A1C 5.9 (H) 4.0 - 5.6 % Estimated Average Glucose 123 <126 mg/dL LIPID PANEL WITH DIRECT LDL IF TG IS HIGH Result Value Ref Range Triglycerides 171 <=174 mg/dL Cholesterol 143 <200 mg/dL HDL Cholesterol 46 (L) >49 mg/dL Non-HDL Cholesterol 97 <=159 mg/dL BASIC METABOLIC PANEL Result Value Ref Range BUN 24 (H) 6 - 20 mg/dL CREATININE 0.7 0.5 - 1.0 mg/dL EGFR >90 >=60 mL/min SODIUM 140 135 - 146 mmol/L POTASSIUM 4.7 3.5 - 5.1 mmol/L CHLORIDE 105 98 - 107 mmol/L CO2 23 22 - 32 mmol/L ANION GAP 12 7 - 15 mmol/L GLUCOSE 98 70 - 120 mg/dL CALCIUM 10.0 8.4 - 10.2 mg/dL ALT Result Value Ref Range ALT 19 10 - 35 U/L VITAMIN B12 Result Value Ref Range Vitamin B12 329 232 - 1,245 pg/mL LDL CHOLESTEROL (DIRECT MEASURE) Result Value Ref Range LDL Cholesterol (Direct Measure) 67 <=129 mg/dL PHM: Patient Active Problem List Diagnosis ADVANCE DIRECTIVE INFORMATION Primary localized osteoarthrosis, lower leg Bee sting-induced anaphylaxis Cough Allergic conjunctivitis Osteoarthrosis, unspecified whether generalized or localized, lower leg Lumbar pars defect Trigger ring finger of left hand Need for SBE (subacute bacterial endocarditis) prophylaxis Seasonal allergic rhinitis due to pollen Calcium oxalate renal calculi Trigger finger of right thumb Prediabetes Dyslipidemia, goal LDL below 100 Current Outpatient Medications Medication Sig Dispense Refill loratadine (CLARITIN) 10 MG Tablet Take 1 Tablet by mouth in the morning. Acetaminophen ER 650 MG Oral Tablet Extended Release Take 1 Tablet by mouth every 8 hours as needed. Atorvastatin Calcium 20 MG Oral Tablet (Lipitor) Take 1 Tablet by mouth every night at bedtime. 90 Tablet 3 Tamsulosin HCl 0.4 MG Oral Capsule (Flomax) Take 1 Capsule by mouth in the morning. 14 Capsule 0 Meloxicam 15 MG Oral Tablet (Mobic) TAKE 1 PILL BY MOUTH ONCE A DAY FOR PAIN 90 Tablet 1 metFORMIN HCl 500 MG Oral Tablet (Glucophage) Take 1 Tablet by mouth 2 times a day with morning andevening meals. 180 Tablet 1 No current facility-administered medications for this visit. Past Medical History: Diagnosis Date Acute pancreatitis 04/27/07 seen in [facility], told she had pancreatitis with lipase 333 and normal amylase, 35 Allergic conjunctivitis 03/27/2015 Allergic rhinitis due to other allergen Asthma, mild persistent Bee sting-induced anaphylaxis 07/02/13 Cervical cancer (HCC) 1978 Lumbar pars defect 04/10/15 L5 Osteoarthrosis, unspecified whether generalized or localized, lower leg 04/17/2015 Primary localized osteoarthrosis, lower leg Dr Wallace, both knees Sacroiliitis (HCC) 05/24/15 left, injected Dr Umanzor Trigger ring finger of left hand 05/29/15 Ureterolithiasis 12/05/13 punctate left ureteral calculus at UV junction with mild hydronephrosis Ureterolithiasis 04/10/15 left Past Surgical History: Procedure Laterality Date CT [...] INSERTION performed by Mary Alfonso MD at [facility] MAMMOGRAM SCREENING BILATERAL 08/06/13 scattered fibroglandular densities MAMMOGRAM SCREENING BILATERAL 10/14/14 scattered fibroglandular densities, category 1 normal MAMMOGRAM SCREENING BILATERAL Bilateral 10/24/15 scattered fibroglandular densities, category 1 normal MAMMOGRAM SCREENING BILATERAL Bilateral 07/23/2019 scattered fibroglandular densities, category 2 MAMMOGRAM SCREENING-BILATERAL 12/14/01 ok TOTAL HYSTERECTOMY 1978 Social History Socioeconomic History Marital status: Spouse name: Jamir Number of children: 1 Years of education: Not on file Highest education level: Not on file Occupational History 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 [employer] Tobacco Use Smoking status: Former Current packs/day: 0.00 Average packs/day: 0.5 packs/day for 11.0 years (5.5 ttl pk-yrs) Types: Cigarettes Start date: 10/27/1968 Quit date: 10/27/1979 Years since quittin.7 Smokeless tobacco: Never Tobacco comments: no passive smoke Substance and Sexual Activity Alcohol use: No Drug use: No Sexual activity: Yes Partners: Male Comment: hysterectomy Other Topics Concern Not on file Social History Narrative Not on file Social Determinants of Health Financial Resource Strain: Low Risk (07/18/2024) Financial Resource Strain Do you have any trouble paying for your medications, or do you think you might in the future? (Adult - for ages 18 years and over): No Does your family have trouble paying for medicine? (Household - for ages 0-17 years): Not on file Food Insecurity: No Food Insecurity (07/18/2024) Food Insecurity Do you need food for this week? (Adult - for ages 18 years and over): No Are you able to get enough food for your family? (Household - for ages 0-17 years): Not on file Does your family need food this week? (Household - for ages 0-17 years): Not on file Do you always have enough food for your family? (Household - for ages 0-17 years): Not on file Transportation Needs: No Transportation Needs (07/18/2024) Transportation Needs Do you have trouble getting a ride to medical visits or work? (Adult - for ages 18 years and over):Not on file Does your family have a hard time getting a ride to doctors visits? (Household - for ages 0-17 years): Not on file Has lack of transportation kept you from medical appointments, meetings, work, or from getting things needed for daily living? Check all that apply. (Adult - for ages 18 years and over): No Do you (or your family) have trouble finding or paying for a ride (transportation)? (Household - for ages 0-17 years): Not on file Social Connections: Socially Integrated (07/18/2024) Social Connections How often do you feel lonely or isolated from those around you? (Adult - for ages 18 years and over): Sometimes Housing Stability: Low Risk (07/18/2024) Housing Stability Do you currently live in a senior living or have no steady place to sleep at night? (Adult - for ages 18 years and over): No Do you think you are at risk of becoming homeless? (Adult - for ages 18 years and over): Not on file Does your family worry about paying for your home or becoming homeless? (Household - for ages 0-17 years): Not on file Are you homeless or worried that you might be in the future? (Adult - for ages 18 years and over): No Are you (or your family) homeless or worried that you might be in the future? (Household - for ages0-17 years): Not on file Review of patient's allergies indicates: Allergen Reactions Clindamycin Unknown ? Rash in her 40's Erythromycin Rash Objective: BP 112/68 | Pulse 76 | Temp 36.6 C (97.9 F) (Tympanic) | Ht 1.549 m (5' 1") | Wt 79.8 kg (176 lb) | SpO2 92% | BMI 33.25 kg/m | BSA 1.85 m Physical Exam: General: alert, healthy, no distress, well nourished, and well developed Head: Normocephalic, No masses, lesions, tenderness or abnormalities Eye Exam: PERRLA, extraocular movements intact, conjunctiva are pink and non- injected, sclera clear Ears: External ears normal, Canals clear, TM's Normal Nose: no mucosal erythema, no mucosal edema, no purulent discharge Neck: supple, no adenopathy, no bruits Heart: regular rate & rhythm, no murmur, and no gallops Lungs: chest symmetric with normal AP diameter, no chest deformities noted, no chest wall tenderness, lungs clear to auscultation Extremities: no edema, no clubbing, no cyanosis Neuro Exam: alert & oriented x 3 with fluent speech, no focal motor/sensory deficits, gait normal Extensive ROS Constitutional (f/c/wt/vision/hearing): Negative Resp (cough/sob/rosales): Negative CV (cp/palp/fluttering/diaphoresis/rosales/pnd):Negative GI (n/v/d/hrtburn): Negative Endo (hair/cold or heat intol/ 3 p's): +prediabetes Neuro (shaking/weak/fatigu/parasthesi/): Negative Skin (rash/easy bruis/xerosis): Negative Psy (si/hi/halluc/): Negative (nocturia/hesit/drib/sexual review): +recurrent kidney stones Lymph (swollen glands/b sx's/: Negative ASSESSMENT: Prediabetes (Primary)--A1C improved from 6.5 last year to 5.9 in December 2023. Check follow-up labs today. Has been watching diet. - HEMOGLOBIN A1C; Future; Expected date: 07/19/2024 - COMPREHENSIVE METABOLIC PANEL; Future; Expected date: 07/19/2024 Encounter for screening mammogram for breast cancer - MAMMOGRAM SCREENING ROSE BILATERAL; Future; Expected date: 07/19/2024 Dyslipidemia, goal LDL below 100--continue atorvastatin 20 mg daily. - COMPREHENSIVE METABOLIC PANEL; Future; Expected date: 07/19/2024 - LIPID PANEL WITH DIRECT LDL IF TG IS HIGH; Future; Expected date: 07/19/2024 Nephrolithiasis--has had numerous kidney stones in the past. Last one was December 2023 and passed at home with use of Flomax. No flank pain today. Follow Up: Return in about 6 months (around 01/16/2025) for Clinic Visit. | For: Clinic Visit PLAN: Continue present medication(s): Schedule labs: A1C, CMP, and lipid panel Patient education: reviewed labs, discussed lifestyle changes and vaccines. Declines DEXA scan Follow up: in 6 month(s). Krystal Fuentes MD documented in this encounter Nursing Notes * Mandi Henson LPN - 07/19/2024 12:57 PM EDT 6 month recheck No concerns today. documented in this encounter Plan of Treatment Upcoming Encounters Date Type Department Care Team (Late st Contact Info) Description 10/04/2024 10:00 AM EST Imaging Radiology [address] [place] [phone] 08/19/2025 8:20 AM EDT Office Visit Family Medicine [address] [place] [phone] Krystal Fuentes MD [address] [place] [address] [place] [phone] Pending Results Name Type Priority Associated Diagnoses Date /Time HEMOGLOBIN A1C Lab Routine Prediabetes 07/19/2024 1:22 PM EDT COMPREHENSIVE METABOLIC PANEL Lab Routine Prediabetes Dyslipidemia, goal LDL below 100 07/19/2024 1:22 PM EDT LIPID PANEL WITH DIRECT LDL IF TG IS HIGH Lab Routine Dyslipidemia, goal LDL below 100 07/19/2024 1:22 PM EDT Scheduled Orders Name Type Priority Associated Diagnoses Orde r Schedule MAMMOGRAM SCREENING ROSE BILATERAL Medical Imaging Routine Encounter for screening mammogram for breast cancer Expected: 07/19/2024, Expires: 08/18/2025 HEMOGLOBIN A1C Lab Routine Prediabetes Expected: 07/19/2024 (Approximate), Expires: 07/19/2025 COMPREHENSIVE METABOLIC PANEL Lab Routine Prediabetes Dyslipidemia, goal LDL below 100 Expected: 07/19/2024 (Approximate), Expires: 07/19/2025 LIPID PANEL WITH DIRECT LDL IF TG IS HIGH Lab Routine Dyslipidemia, goal LDL below 100 Expected: 07/19/2024, Expires: 07/19/2025 Health Maintenance Due Date Last Done Comments DXA Scan 1950 Hepatitis C Screening 1968 Cologuard 1995 Colonoscopy 1995 Colorectal Cancer Screening 1995 Fecal Occult Blood Test 1995 Sigmoidoscopy 1995 Zoster Vaccines (1 of 2) 2000 Adult Wellness Visit 2016 Depression Screening 06/05/2021 06/05/2020 DTap/Tdap Vaccines (2 - Td or Tdap) 06/12/2021 06/12/2011 Influenza Vaccine (FLU shot) (#1) 2024 07/08/2020 Mammogram 10/02/2024 10/02/2023, 12/25, 07/23/2019, Additional history exists HbA1c 01/01/2025 01/02/2024, 07/15/2023 Lipid Panel 01/01/2029 01/02/2024, 06/27, 02/12/2022, Additional history exists Pneumococcal Vaccine: 65+ Years Completed 07/12/2019, 07/22/2016, 06/12/2011 COVID-19 Vaccine Completed 07/05/2024, , 07/26/2022, Additional history exists HPV (Gardasil) Vaccine Aged Out No lo [...] as of this encounter Visit Diagnoses Diagnosis Prediabetes- Primary Other abnormal glucose Encounter for screening mammogram for breast cancer Dyslipidemia, goal LDL below 100 Other and unspecified hyperlipidemia Nephrolithiasis Calculus of kidney documented in this encounter Advance Directives Documents on File Type Date Recorded Patient Pain Management Nurse Expl anation Advance Directives and Living Will 12/08/2017 ADVANCE DIRECTIVE ADVANCE HEALTH CARE DIRECTIVE Care Teams Frame Polisher Relationship Specialty Start Date End Date Krystal Fuentes MD [address] [place] [address] [place] [phone] PCP - General Family Medicine 08/06/19 documented as of this encounter
--- OUTSIDE RECORDS SUMMARY | 2024-12-26 20:26 | External Medical Summary ---
Author Name Unknown Address Unknown Organization [id number]:[facility] [address] [place] [address] Laboratory Report Ordering Provider Test Date Status RUSSELL MART 07/19/2024 13:22:38 Final Observation Date Value Abnormality Reference (Units ) Status Triglyceride 07/19/2024 13:22:38 226 Above high normal <=174 (mg/dL) Final Triglyceride Reference Range s (mg/dL):
<150 Acceptable
150-174 Borderline high
175-499 High
>=500 Very high Cholesterol 07/19/2024 13:22:38 166 <200 (mg /dL) Final Total Cholesterol Reference Ranges (mg/dL):
<200 Desirable
200-239 Borderline high
>=240 High HDL 07/19/2024 13:22:38 42 Below low normal >49 (mg/dL) Final HDL Cholesterol Reference Ra nges (mg/dL):
>=60 High (Desirable)
<50 Low (Undesirable) For Females
<40 Low (Undesirable) For Males NON-HDL CHOLESTEROL 07/19/2024 13:22:38 124 <=159 (mg/dL) Final Non-HDL Cholesterol Referenc e Range (mg/dL):
<100 Target level for high risk ASCVD patient
<130 Optimal for general population
130-159 Near optimal for general population
160-189 Borderline High
190-219 High
>=220 Very High Performing Location LAB[facility]ATORY [facility] - [address] [place] [address]
--- OUTSIDE RECORDS SUMMARY | 2024-12-26 20:26 | External Medical Summary | Summary of Care ---
Author Name Unknown Organization [facility] Address [address] [facility] [place] [address] Phone [phone] Care Team Providers Care Community Outreach Advocate Name Role Phone Krystal Fuentes MD Primary Care Provide r Reason for Visit * Reason Comments Outpatient Testing Encounter Details Date Type Department Care Team (Late st Contact Info) Description 07/19/2024 1:40 PM EDT Laboratory Laboratory [address] [place] [phone] [address] [place] [address] Prediabetes; Dyslipidemia, goal LDL below 100 Allergies Active Allergy Reactions Criticality Noted Date [...] Active Atorvastatin Calcium 20 MG Oral Tablet (Lipitor)Indications: Dyslipidemia, goal LDL below 130 Take 1 Tablet by mouth every night at bedtime. 90 Tablet 3 01/02/2024 Active Meloxicam 15 MG Oral Tablet (Mobic)Indications:Pr imary localized osteoarthrosis, lower leg, unspecified laterality TAKE 1 PILL BY MOUTH ONCE A DAY FOR PAIN 90 Tablet 1 06/29/2024 Active metFORMIN HCl 500 MG Oral Tablet (Glucophage)Indicatio ns:Prediabetes Take 1 Tablet by mouth 2 times a day with morning and evening meals. 180 Tablet 1 06/29/2024 Active documented as of this encounter (statuses [...] Description 10/04/2024 10:00 AM EST Imaging Radiology [address] [place] [phone] 08/19/2025 8:20 AM EDT Office Visit Family Medicine [address] [place] [phone] Krystal Fuentes MD [address] [place] [address] [place] [phone] Pending Results Name Type Priority Associated Diagnoses Date /Time HEMOGLOBIN A1C Lab Routine Prediabetes 07/19/2024 1:22 PM EDT COMPREHENSIVE METABOLIC PANEL Lab Routine Prediabetes Dyslipidemia, goal LDL below 100 07/19/2024 1:22 PM EDT LIPID PANEL WITH DIRECT LDL IF TG IS HIGH Lab Routine Dyslipidemia, goal LDL below 100 07/19/2024 1:22 PM EDT Health Maintenance Due Date Last Done Comments [...] as of this encounter Visit Diagnoses Diagnosis Prediabetes Other abnormal glucose Dyslipidemia, goal LDL below 100 Other and unspecified hyperlipidemia documented in this encounter Advance Directives Documents on File Type Date Recorded Patient Barrel Leveler Expl anation Advance Directives and Living Will 12/08/2017 ADVANCE DIRECTIVE ADVANCE HEALTH CARE DIRECTIVE Care Teams Community Outreach Advocate Relationship Specialty Start Date End Date Krystal Fuentes MD [address] [place] [address] [place] [phone] PCP - General Family Medicine 08/06/19 documented as of this encounter
--- OUTSIDE RECORDS SUMMARY | 2024-12-26 20:26 | External Medical Summary ---
Author Name Unknown Address Unknown Organization [id number]:[facility] - [address] [place] [address] Laboratory Report Ordering Provider Test Date Status RUSSELL MART 12/11/2024 14:10:00 Final Observation Date Value Abnormality Reference (Units ) Status Color of Urine by Auto 12/11/2024 14:10:00 Yellow Light Yellow, Yellow Final Clarity, Urine 12/11/2024 14:10:00 Clear Clear Final Glucose [Mass/volume] in Urine by Automated test strip 12/11/2024 14:10:00 Negative Negative (mg/dL) Final Bilirubin.total [Presence] in Urine by Automated test strip 12/11/2024 14:10:00 Negative Negative Final Ketones [Mass/volume] in Urine by Automated test strip 12/11/2024 14:10:00 Negative Negative (mg/dL) Final Specific gravity, Urine 12/11/2024 14:10:00 1.015 1.003-1.030 Final Hemoglobin [Presence] in Urine by Automated test strip 12/11/2024 14:10:00 Large Abnormal Negative Final pH, Urine 12/11/2024 14:10:00 6.0 5.0, 5.5, 6.0, 6.5, 7.0, 7.5 (units) Final Protein [Mass/volume] in Urine by Automated test strip 12/11/2024 14:10:00 100 Abnormal Negative (mg/dL) Final Urobilinogen, Urine 12/11/2024 14:10:00 0.2 0.2, 1.0 (mg/dL) Final Nitrite [Presence] in Urine by Automated test strip 12/11/2024 14:10:00 Positive Abnormal Negative Final Leukocyte esterase [Presence] in Urine by Automated test strip 12/11/2024 14:10:00 Large Abnormal Negative Final Performing Location [facility] - [address] [place] [address]
--- OUTSIDE RECORDS SUMMARY | 2024-12-26 20:26 | External Medical Summary ---
Author Name Unknown Address Unknown Organization [id number]:[facility] [place] - [address] [facility] [address] Laboratory Report Ordering Provider Test Date Status RUSSELL MART 12/11/2024 14:15:46 Final <10,000 colonies/ml mixed no rmal january Observation Date Value Abnormality Reference (Units ) Status Bacteria identified in Specimen by Culture 12/11/2024 14:15:46 [id number]^ESCHE RICHIA COLI Abnormal Final >100,000 colonies/mL Escheri serg coli Performing Location [facility] [place] - [address] [facility] [address] Ordering Provider Test Date Status RUSSELL MART 12/11/2024 14:15:46 Final Observation Date Value Abnormality Reference (Units ) Status Ampicillin 12/11/2024 14:15:46 >=32 Resistant Final Ampicillin + Sulbactam 12/11/2024 14:15:46 >=32 Resistant Final Cefazolin 12/11/2024 14:15:46 >=64 Resistant Final Cefepime susceptibility 12/11/2024 14:15:46 <=1 Susceptible Final cefOXitin [Susceptibility] 12/11/2024 14:15:46 >=64 Resistant Final Ceftriaxone suceptibility 12/11/2024 14:15:46 >=64 Resistant Final Ciprofloxacin 12/11/2024 14:15:46 1 Resistant Final Due to serious side effects, the FDA has advised against using Ciprofloxacin to treat uncomplicated UTIs and respiratory tract infections unless there are no alternative treatment options. Gentamicin susceptibility 12/11/2024 14:15:46 <=1 Susc eptible Final Levofloxacin susceptibility 12/11/2024 14:15:46 1 In termediate Final Due to serious side effects, the FDA has advised against using Levofloxacin to treat uncomplicated UTIs and respiratory tract infections unless there are no alternative treatment options. Meropenem [Susceptibility] 12/11/2024 14:15:46 <=0.25 Soraya ceptible Final Nitrofurantoin susceptibility 12/11/2024 14:15:46 <=16 Susceptible Final Piperacillin + Tazobactamsusceptibility 12/11/2024 14:15:46 >=128 Resistant Final TMP-SMZ susceptibility 12/11/2024 14:15:46 >=320 Resista nt Final Test: Culture, Urine, Quanti tative
Specimen Source: Urine, Clean Catch
Specimen Type: Urine
Specimen Date: 12/11/20241414
Result Date: 12/15/20241427
Result Status: Final result
Abnormal: Yes
Resulting Lab: [facility] [place]
[address]
[place] [address]

CULTURE

>100,000 colonies/mL Escherichia coli (Abnormal)

<10,000 colonies/ml mixed normal january

SUSCEPTIBILITY

Escherichia coli
METHOD MICROBROTH DILUTIONS

AMPICILLIN >=32 Resistant
AMPICILLIN/SULBACTAM >=32 Resistant
CEFAZOLIN >=64 Resistant
CEFEPIME <=1 Susceptible
CEFOXITIN >=64 Resistant
CEFTRIAXONE >=64 Resistant
CIPROFLOXACIN 1 Resistant
[1]
GENTAMICIN <=1 Susceptible
LEVOFLOXACIN 1 Intermediate
[2]
MEROPENEM <=0.25 Susceptible
NITROFURANTOIN <=16 Susceptible
PIPERACILLIN TAZOBACTAM >=128 Resistant
TRIMETH/SULFAMETHOXAZOLE >=320 Resistant

[1] Due to serious side effects, the FDA has advised against using
Ciprofloxacin to treat uncomplicated UTIs and respiratory tract infections
unless there are no alternative treatment options.

[2] Due to serious side effects, the FDA has advised against using
Levofloxacin to treat uncomplicated UTIs and respiratory tract infections
unless there are no alternative treatment options.

null Performing Location [facility] [place] - [facility] [address] [facility] [address]
--- OUTSIDE RECORDS SUMMARY | 2024-12-26 20:26 | External Medical Summary ---
Author Name Unknown Address Unknown Organization [id number]:[facility] [place] [address] [place] [address] Laboratory Report Ordering Provider Test Date Status RUSSELL MART 07/19/2024 13:22:38 Final Observation Date Value Abnormality Reference (Units ) Status Parathyrin.intact [Mass/volume] in Serum or Plasma 07/19/2024 13:22:38 48 15-65 (pg/mL) Final Performing Location [facility] [place] [address] [place] [address]
--- OUTSIDE RECORDS SUMMARY | 2024-12-26 20:26 | External Medical Summary ---
Author Name Unknown Address Unknown Organization [id number]:[facility] [place] - [address] [place] [address] Laboratory Report Ordering Provider Test Date Status PAMELACORNELIUSRUSSELL 07/19/2024 13:22:38 Final Observation Date Value Abnormality Reference (Units ) Status BUN 07/19/2024 13:22:38 13 6-20 (mg/dL) Final Creatinine 07/19/2024 13:22:38 0.7 0.5-1.0 (mg/dL) Final Glomerular filtration rate/1.73 sq M.predicted [Volume Rate/Area] in Serum, Plasma or Blood by Creatinine-based formula (CKD-EPI) 07/19/2024 13:22:38 >90 >=60 (mL/min) Final eGFR is calculated based on the CKD-EPI 2020 equation. Sodium 07/19/2024 13:22:38 140 135-146 (m mol/L) Final Potassium 07/19/2024 13:22:38 4.6 3.5-5.1 (m mol/L) Final Cl 07/19/2024 13:22:38 102 98-107 (mm ol/L) Final CO2 07/19/2024 13:22:38 23 22-32 (mmo l/L) Final Anion gap 07/19/2024 13:22:38 15 7-15 (mmol /L) Final Glucose 07/19/2024 13:22:38 112 70-120 (mg /dL) Final Albumin 07/19/2024 13:22:38 4.7 3.8-5.0 (g /dL) Final AST (Aspartate aminotransferase) 07/19/2024 13:22:38 23 10-35 (U/L) Fin al Alk Phos 07/19/2024 13:22:38 86 35-130 (U/ L) Final Bilirubin, Total 07/19/2024 13:22:38 0.5 <=1 .2 (mg/dL) Final Calcium 07/19/2024 13:22:38 10.4 Above high normal 8. 4-10.2 (mg/dL) Final Protein 07/19/2024 13:22:38 7.0 6.0-8.3 (g /dL) Final ALT (Alanine aminotransferase) 07/19/2024 13:22:38 33 10-35 (U/L) Manish ragland Performing Location [facility] [place] - [address] [facility] [address]
--- OUTSIDE RECORDS SUMMARY | 2024-12-26 20:26 | External Medical Summary ---
Author Name Unknown Address Unknown Organization [id number]:[facility] [place] - [address] [place] [address] Laboratory Report Ordering Provider Test Date Status RUSSELL MART 07/19/2024 13:22:38 Final Observation Date Value Abnormality Reference (Units ) Status HbA1C 07/19/2024 13:22:38 6.0 Above high normal 4. 0-5.6 (%) Final The use of HbA1c to monitor glycemic status is based on normal hemoglobin and HbA composition. This test should not be used in patients with abnormal hemoglobin that affects the half life of the red blood cell or the in vivo glycation rates. Glucose, estimated average 07/19/2024 13:22:38 126 Above high normal <126 (mg/dL) Manish ragland Performing Location [facility] [place] - [address] [place] [address]
--- OUTSIDE RECORDS SUMMARY | 2024-12-26 20:26 | External Medical Summary | Summary of Care ---
Author Name Unknown Organization [facility] Address [address] [place] [address] Phone [phone] Care Team Providers Care Reception Specialist Name Role Phone Krystal Fuentes MD Primary Care Provide r Reason for Visit * Reason Onset Date Comments Appointment 11/26/2024 Encounter Details Date Type Department Care Team (Late st Contact Info) Description 11/26/2024 Telephone Care at Home [address] [place], [place] [id number] Mary Torres, MARIAH [address] [place] [address] Appointment Allergies Active Allergy Reactions Criticality Noted Date Comments Clindamycin Unknown 07/06/2001 ? Rash in her 40's Erythromycin Rash 07/06/2001 documented as of this encounter (statuses as of 11/26/2024) Medications loratadine (CLARITIN) 10 MG Tablet Take [...] as of this encounter (statuses as of 11/26/2024) Active Problems Problem Noted Date Diagnosed Date [...] as of this encounter (statuses as of 11/26/2024) Resolved Problems Problem Noted Date Diagnosed Date [...] as of this encounter (statuses as of 11/26/2024) Immunizations Name Administration Dates Next Due COVID-19 [...] ages 0-17 years) Not on file 07/18/2024 Comments No Sex and Gender Information [...] encounter Miscellaneous Notes * Telephone Encounter - Mary Torres OSA - 11/26/2024 4:08 PM EST Care At Home Outreach Call attempt: 1st Call Call result: Call Unsuccessful - Declined enrollment Does not wish to schdule AWV MARIAH Woodard * Telephone Encounter - Mary Torres OSA - 11/26/2024 3:33 PM EST Care At Home Outreach Call attempt: 1st Call Call result: Call Unsuccessful - Left a voice mail Looking to schedule patient for AWV Can offer: 11/30/24 or 12/07/24 with Li He PA-C Provided call back number of [phone] MARIAH Woodard documented in this encounter Plan of Treatment Upcoming Encounters Date Type Department Care Team (Late st Contact Info) Description 08/19/2025 8:20 AM EDT Office Visit Family Medicine [address] [place] [phone] Krystal Fuentes MD [address] [place] [address] [place] [phone] Health Maintenance Due Date Last Done Comments DXA Scan 1950 Hepatitis C Screening 1968 Cologuard 1995 Colonoscopy 1995 Colorectal Cancer Screening 1995 Fecal Occult Blood Test 1995 Sigmoidoscopy 1995 Zoster Vaccines (1 of 2) 2000 Adult Wellness Visit 2016 Depression Screening 06/05/2021 06/05/2020 DTap/Tdap Vaccines (2 - Td or Tdap) 06/12/2021 06/12/2011 Influenza Vaccine (FLU shot) (#1) 2024 07/08/2020 HbA1c 07/19/2025 07/19/2024, 03/0 05/2024, 07/15/2023 Mammogram 10/04/2025 10/04/2024, 120 04/2023, 01/10/2022, Additional history exists Lipid Panel 07/19/2029 07/19/2024, 0 05/2024, 07/15/2023, Additional history exists Pneumococcal Vaccine: 50+ Years Completed 07/12/2019, 07/22/2016, 06/12/2011 COVID-19 Vaccine [...] Documents on File Type Date Recorded 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
--- OUTSIDE RECORDS SUMMARY | 2024-12-26 20:26 | External Medical Summary | Summary of Care ---
Author Name Unknown Organization [facility] Address [address] [facility] [place] [address] Phone [phone] Care Team Providers Care Hospitalist Physician Name Role Phone Krystal Fuentes MD Primary Care Provide r Encounter Details Date Type Department Care Team (Late st Contact Info) Description 11/16/2024 Population Health External Data Unspecified Department Allergies Active Allergy Reactions Criticality Noted Date Comments Clindamycin Unknown 07/06/2001 ? Rash in her 40's Erythromycin Rash 07/06/2001 documented as of this encounter (statuses as of 11/16/2024) Medications loratadine (CLARITIN) 10 MG Tablet Take [...] as of this encounter (statuses as of 11/16/2024) Active Problems Problem Noted Date Diagnosed Date [...] as of this encounter (statuses as of 11/16/2024) Resolved Problems Problem Noted Date Diagnosed Date [...] as of this encounter (statuses as of 11/16/2024) Immunizations Name Administration Dates Next Due COVID-19 [...] 8:20 AM EDT Office Visit Family Medicine [address] [place] [phone] Krystal Fuentes MD [address] [place] [address] [place] [phone] Health Maintenance Due Date Last Done Comments [...] 07/19/2024, 03/0 05/2024, 07/15/2023 Mammogram 10/04/2025 10/04/2024, 1204/2023, 01/10/2022, [...] Documents on File Type Date Recorded 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
--- OUTSIDE RECORDS SUMMARY | 2024-12-26 20:26 | External Medical Summary | Summary of Care ---
Author Name Unknown Organization [facility] Address [address] [place] [address] Phone [phone] Care Team Providers Care Courtesy Bus Driver Name Role Phone Krystal Fuentes MD Primary Care Provide r Reason for Visit * Reason Onset Date Comments Appointment 11/26/2024 Encounter Details Date Type Department Care Team (Late st Contact Info) Description 11/26/2024 Telephone Care at Home [address] [place], [place] [phone] Mary Torres, MARIAH [address] [place] [address] Appointment Allergies Active Allergy Reactions Criticality Noted [...] He PA-C Provided call back number of [phone] MARIAH Woodard documented in this encounter Plan of Treatment Upcoming Encounters Date Type Department Care Team (Late st Contact Info) Description 08/19/2025 8:20 AM EDT Office Visit Family Medicine [address] [place] [phone] Krystal Fuentes MD [address] [place] [address] [place] [phone] Health Maintenance Due Date Last Done Comments [...] Documents on File Type Date Recorded 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
--- OUTSIDE RECORDS SUMMARY | 2024-12-26 20:26 | External Medical Summary | Summary of Care ---
Author Name Unknown Organization [facility] Address [address] [facility] [address] Phone [phone] Care Team Providers Care Ship Purser Name Role Phone Krystal Fuentes MD Primary Care Provide r Reason for Referral * Evaluate & Treat - Unlimited Visits (Within 10 days (routine)) - Authorized Specialty Diagnoses / Procedures Referred By Contac t Referred To Contact [employer] - Urogynecology / Gynecology Urology Diagnoses Bladder prolapse, female, acquired Krystal Fuentes MD [address] [place] [address] [place] [id number] Phone: tel: fax: Referral ID Status Reason Start Date Expiration Date Visits Requested Visits Authorized [id number] Authorized Specialty Services Required 12/11/[phone] Question Answer Referral Priority Within 10 days (routine) Where should this appointment be scheduled? [facility] What condition is the patient being referred for? Prolapse (dropped bladder, uterus, etc) Reason for Visit * Reason Comments Acute Encounter Details Date Type Department Care Team (Late st Contact Info) Description 12/11/2024 1:40 PM EST Office Visit Family [facility] [address] [facility] [place] [phone] Krystal Fuentes MD [address] [place] [address] [place] [phone] Acute cystitis without hematuria*; Renal cyst, right; Nephrolithiasis; Bladder prolapse, female, acquired Allergies No known active allergiesdocumented as of this encounter (statuses as of 12/11/2024) Medications loratadine (CLARITIN) 10 MG Tablet Take [...] HCl 500 MG Oral Tablet (Glucophage)Cristina cations:Prediabe anthony Take 1 Tablet by mouth 2 times [...] as of this encounter (statuses as of 12/11/2024) Active Problems Problem Noted Date Diagnosed Date [...] as of this encounter (statuses as of 12/11/2024) Resolved Problems Problem Noted Date Diagnosed Date [...] as of this encounter (statuses as of 12/11/2024) Immunizations Name Administration Dates Next Due COVID-19 [...] 0 [birth year]/27/1968 - 10/27/1979 Smokeless Tobacco: Never Tobacco Cessation:Counseling Given: Yes Comments:no passive smoke Alcohol Use Standard Drinks/Week [...] No 07/18/2024 Does the household have a [facility] source [facility] income? (Household - for ages [...] Sign Reading Time Taken Comments Blood Pressure 122/74 12/11/2024 1:38 PM EST Pulse 80 12/11/2024 1:38 PM EST Temperature 36.4 C (97.5 F) 12/11/2024 1:38 PM ES T Respiratory Rate 14 12/11/2024 1:38 PM EST Oxygen Saturation - - Inhaled Oxygen Concentration - - Weight 79.2 kg (174 lb 9.6 oz) 12/11/2024 1:38 P M EST Height 154.9 cm (5' 1") 12/11/2024 1:38 PM EST Body Mass Index 32.99 12/11/2024 1:38 PM EST documented in this encounter Progress Notes * Krystal Fuentes MD - 12/11/2024 1:42 PM EST Subjective: Carole Westbrook is a 74 year old female. Chief Complaint Patient presents with Acute HPI: Brief Clinical History Ms. Westbrook is a 74 year old female last seen in [facility] on 07/19/2024 by Krystal Fuentes She has a h/o the following chronic conditions indicated on the problem list: Chronic Conditions None Has been having dysuria, frequency, urgency, nocturia since the last couple days of October. Went to [facility] 11/27/24 and diagnosed with UTI. Was given cephalexin and that did not help at all, and she was called a couple days later and changes to Macrobid based on culture results. Has some back pain. No fever. She took Macrobid and it got somewhat better but then it came back as soon as she stopped it. Has not had any hematuria. Also has a bladder prolapse. Is interested in having this evaluated. Had a hysterectomy at age 29. Has h/o kidney stones. Used to see urology years ago. Last renal ultrasound showed a right renal exophytic cyst. This was ordered by and evaluated by urology. Results for orders placed or performed in visit on 07/19/24 HEMOGLOBIN A1C Result Value Ref Range Hemoglobin A1C 6.0 (H) 4.0 - 5.6 % Estimated Average Glucose 126 (H) <126 mg/dL COMPREHENSIVE METABOLIC PANEL Result Value Ref Range BUN 13 6 - 20 mg/dL CREATININE 0.7 0.5 - 1.0 mg/dL EGFR >90 >=60 mL/min SODIUM 140 135 - 146 mmol/L POTASSIUM 4.6 3.5 - 5.1 mmol/L CHLORIDE 102 98 - 107 mmol/L CO2 23 22 - 32 mmol/L ANION GAP 15 7 - 15 mmol/L GLUCOSE 112 70 - 120 mg/dL Albumin 4.7 3.8 - 5.0 g/dL AST 23 10 - 35 U/L Alkaline Phosphatase 86 35 - 130 U/L Bilirubin, Total 0.5 <=1.2 mg/dL CALCIUM 10.4 (H) 8.4 - 10.2 mg/dL Protein 7.0 6.0 - 8.3 g/dL ALT 33 10 - 35 U/L LIPID PANEL WITH DIRECT LDL IF TG IS HIGH Result Value Ref Range Triglycerides 226 (H) <=174 mg/dL Cholesterol 166 <200 mg/dL HDL Cholesterol 42 (L) >49 mg/dL Non-HDL Cholesterol 124 <=159 mg/dL LDL CHOLESTEROL (DIRECT MEASURE) Result Value Ref Range LDL Cholesterol (Direct Measure) 87 <=129 mg/dL 25-HYDROXY VITAMIN D Result Value Ref Range 25-Hydroxy Vitamin D 17 (L) >19 ng/mL PTH Result Value Ref Range PTH 48 15 - 65 pg/mL PHM: Patient Active Problem List Diagnosis Primary localized [...] 1000 UNIT Oral Capsule Take by mouth. No current facility-administered medications for this visit. 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 [employer] Tobacco Use Smoking status: Former Current packs/day: [...] Social History Narrative Not on file Social Needs Financial Resource Strain: Low Risk [...] Stability Do you currently live in a snf or have no steady place to sleep [...] on file Review of patient's allergies indicates: No Known Allergies Objective: BP 122/74 | Pulse 80 | Temp 97.5 F (36.4 C) | Resp 14 | Ht 5' 1" (1.549 m) | Wt 174 lb 9.6 oz (79.2 kg) | BMI 32.99 kg/m | BSA 1.85 m Physical Exam: General: alert, healthy, no distress, well nourished, and well developed Head: Normocephalic, No masses, lesions, tenderness or abnormalities Heart: regular rate & rhythm, no murmur, and no gallops Lungs: chest symmetric with normal AP diameter, no chest deformities noted, no chest wall tenderness, lungs clear to auscultation Back: no costovertebral angle tenderness Extremities: no edema, no clubbing, no cyanosis Extensive ROS Constitutional (f/c/wt/vision/hearing): Negative Resp (cough/sob/rosales): Negative CV (cp/palp/fluttering/diaphoresis/rosales/pnd):Negative GI (n/v/d/hrtburn): Negative Endo (hair/cold or heat intol/ 3 p's): +prediabetes Neuro (shaking/weak/fatigu/parasthesi/): Negative Skin (rash/easy bruis/xerosis): Negative Psy (si/hi/halluc/): Negative (nocturia/hesit/drib/sexual review): see above hpi Lymph (swollen glands/b sx's/: Negative ASSESSMENT: Acute cystitis without hematuria (Primary)--treated with cephalexin but was resistant and then changed to Macrobid per [facility]. Results of this are not available. UA today is positive. Send culture. Will restart Macrobid but treat for 10 days this time and follow-up culture results. - URINALYSIS, POINT OF CARE - URINALYSIS, POINT OF CARE (ENTER/EDIT) - CULTURE, URINE, QUANTITATIVE; Future; Expected date: 12/11/2024 - Nitrofurantoin Monohyd Macro 100 MG Oral Capsule (Macrobid); Take 1 Capsule by mouth in the morning and 1 Capsule before bedtime. Do all this for 10 days. With food until gone. - CULTURE, URINE, QUANTITATIVE Renal cyst, right--discussed repeating renal ultrasound but declines at this time. States she is unable to drink that much and hold her urine for the test. The cyst was evaluated by urology in 2019 and no follow-up was suggested. Nephrolithiasis--has seen urology in the past. No recent stones. Bladder prolapse, female, acquired - UROGYNECOLOGY CLINIC REFERRAL OP (FEMALE ONLY) Follow Up: Return as scheduled. PLAN: Continue present medication(s): Begin medication(s): Macrobid twice daily for 10 days. Got better with 5 days of medication but symptoms returned as soon as she stopped it. Referral(s) to: Urogynecology for bladder prolapse. Schedule labs: Urine culture Patient education: Discussed UTI, Macrobid, and urine culture. Discussed and recommended renal ultrasound but declines at this time. Discussed urogynecology referral. Follow up: As scheduled and sooner if needed. Krystal Fuentes MD documented in this encounter Nursing Notes * Gissell Wiley LPN - 12/11/2024 1:36 PM EST States urinary symptoms--started before 11/27 Was treated with cephalexin and then nitrofuratoin documented in this encounter Plan of Treatment Upcoming Encounters Date Type Department Care Team (Late st Contact Info) Description 08/19/2025 8:20 AM EDT Office Visit Family Medicine [address] [address] Krystal Fuentes MD [address] [place] [address] [place] [phone] Pending Results Name Type Priority Associated Diagnoses Date /Time CULTURE, URINE, QUANTITATIVE Lab Routine Acute cystitis without hematuria 12/11/2024 2:15 PM EST Scheduled Orders Name Type Priority Associated Diagnoses Orde r Schedule CULTURE, URINE, QUANTITATIVE Lab Routine Acute cystitis without hematuria Expected: 12/11/2024, Expires: 12/11/2025 Scheduled Referrals Name Type Priority Associated Diagnoses Order Schedule UROGYNECOLOGY CLINIC REFERRAL OP (FEMALE ONLY) Referral Within 10 days (routine) Bladder prolapse, female, acquired Ordered: 12/11/2024 Health Maintenance Due Date Last Done Comments [...] Not on filedocumented as of this encounter Procedures Procedure Name Priority Date/Time Associated Diagnosis Comments URINALYSIS, POINT OF CARE YUNIER 12/11/2024 2:10 PM EST Acute cystitis without hematuria URINALYSIS, POINT OF CARE (ENTER/EDIT) Routine 12/11/2024 Acute cystitis without hematuria documented in this encounter Results * (ABNORMAL) URINALYSIS, POINT OF CARE (12/11/2024 2:10 PM EST) Color, Urine Yellow Light Yellow, Yellow 12/11/2024 2:12 PM EST [facility] Clarity, Urine Clear Clear 12/11/2024 2:12 PM EST [facility] Glucose, Urine Negative Negative mg/dL 12/11/2024 2:12 PM EST [facility] Bilirubin, Urine Negative Negative 12/11/2024 2:12 PM EST [facility] Ketone, Urine Negative Negative mg/dL 12/11/2024 2:12 PM EST [facility] Specific [place], Urine 1.015 1.003 - 1.030 12/11/2024 2:12 PM EST [facility] Blood, Urine Large(A) Negative 12/11/2024 2:12 PM EST [facility] pH, Urine 6.0 5.0, 5.5, 6.0, 6.5, 7.0, 7.5 units 12/11/2024 2:12 PM EST [facility] Protein, Urine 100(A) Negative mg/dL 12/11/2024 2:12 PM EST [facility] Urobilinogen, Urine 0.2 0.2, 1.0 mg/dL 12/11/2024 2:12 PM EST [facility] Nitrite, Urine Positive(A) Negative 12/11/2024 2:12 PM EST [facility] Esterase, Urine Large(A) Negative 12/11/2024 2:12 PM EST [facility] Urine 12/11/2024 2:10 PM EST 12/11/2024 2:12 PM EST us Krystal Fuentes MD LAB POINT OF CARE TEST DOCKED DEVICE UNSOLICITED RESULTS Final Result [facility] [address] [facility] [place] [id number] * URINALYSIS, POINT OF CARE (ENTER/EDIT) (12/11/2024) Color, Urine Yellow Yellow or Light Yellow Clarity, Urine Cloudy Clear Glucose, Urine Negative Negative mg/dL Bilirubin, Urine Negative Negative Ketone, Urine Negative Negative mg/dL Specific Cl[place], Urine 1.015 1.003 - 1.030 Blood, Urine Large Negative pH, Urine 6.0 5.0 - 7.5 units Protein, Urine 100 Negative mg/dL Urobilinogen, Urine 0.2 0.2 - 1.0 mg/dL Nitrite, Urine Positive Negative Esterase, Urine Large Negative Urine 12/11/2024 Krystal Fuentes MD LAB POINT OF CARE ANTHONY T ENTER/EDIT ORDERABLES Final Result documented in this encounter Visit Diagnoses Diagnosis Acute cystitis without hematuria- Primary Acute cystitis Renal cyst, right Unspecified congenital cystic kidney disease Nephrolithiasis Calculus of kidney Bladder prolapse, female, acquired Cystocele, midline documented in this encounter Advance Directives Documents on File Type Date Recorded 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
--- OUTSIDE RECORDS SUMMARY | 2024-12-26 20:26 | External Medical Summary ---
Author Name Unknown Address Unknown Organization [id number] [address] [place] [address] Laboratory Report Ordering Provider Test Date Status RUSSELL MART 07/19/2024 13:22:38 Final Deficient: <20 ng/mL
Ins ufficient: 20-29 ng/mL
Recommended/Optimum:30-50 ng/mL

Vitamin D intoxication is rare. If suspicious of Vitamin D toxicity, evaluation of serum Calcium and PTH is recommended. Observation Date Value Abnormality Reference (Units ) Status 25-OH Vitamin D total 07/19/2024 13:22:38 17 Below low normal >19 (ng/mL) Final Performing Location [facility] [address] [place] [address]
--- OUTSIDE RECORDS SUMMARY | 2024-12-26 20:26 | External Medical Summary ---
Author Name Unknown Address Unknown Organization [id number] [address] [place] [address] Laboratory Report Ordering Provider Test Date Status RUSSELL MATR 07/19/2024 13:22:38 Final Observation Date Value Abnormality Reference (Units ) Status LDL, (direct) 07/19/2024 13:22:38 87 <=129 (mg/dL) Final LDL Cholesterol Reference Ra nges (mg/dL):
<70 Target level for high risk ASCVD patient
<100 Optimal for general population
100-129 Near optimal for general population
130-159 Borderline high
160-189 High
>=190 Very high Performing Location [facility] [address] [place] [address]
[2024-12-26 21:34] LABS: Albumin Globulin Ratio 1.2 (0.9-2); Albumin Level 4.2 gm/dl (3.4-5.0); BUN Creatinine Ratio 21.3 (10-20); Bilirubin,Total 0.6 mg/dl (0.2-1.0); Calcium 10.3 mg/dl (8.6-10.3); Creatinine Clr Calc Pharmacy 62.2 ml/min; Globulin 3.5 gm/dl (2.5-4.0); Potassium 3.6 mmol/L (3.5-5.1); Total Protein 7.7 gm/dl (6.0-8.3)
[2024-12-26 21:40] LABS: Basophils # (auto) 0.08 K/uL (0.00-0.20); Basophils % (auto) 0.4 %; Eosinophils # (auto) 0.45 K/uL (0.00-0.50); Eosinophils % (auto) 2.3 %; Hematocrit (blood only) 40.4 % (37.0-47.0); Hemoglobin 13.2 g/dl (12.0-16.0); Immature Granulocytes # (auto) 0.13 K/uL (0.01-0.20); Immature Granulocytes % (auto) 0.7 %; Lymphocytes # (auto) 1.61 K/uL (1.20-3.40); Lymphocytes % (auto) 8.4 %; Mean Corpuscular Hemoglobin 29.7 pg (25.0-34.0); Mean Corpuscular Hgb Conc 32.7 g/dL (32.0-36.0); Mean Platelet Volume 11.3 fL (9.4-12.4); Monocytes # (auto) 1.58 K/uL (0.11-0.59); Monocytes % (auto) 8.2 %; Platelet Count 333 K/uL (130-400); RDW Coefficient of Variation 13.2 % (11.5-14.5); RDW Standard Deviation 44.8 fL (36.4-46.3); Red Blood Count 4.44 M/uL (4.20-5.40); White Blood Count 19.25 K/ul (4.8-10.8)
[2024-12-26 22:13] LABS: Appearance Urine Cloudy (Clear); Bacteria Urine Automated None Seen (None Seen); Bilirubin Urine Negative (Negative); Blood Urine 1+ (Negative); Color Urine Yellow; Glucose Urine UA Negative (Negative); Ketones Urine 1+ (Negative); Leukocyte Esterase Urine 3+ (Negative); Nitrite Urine Negative (Negative); Protein Urine 2+ (Negative); Specific Gravity Urine 1.016 (1.000-1.030); Urobilinogen Urine Negative (Negative); WBC Urine Automated >50 /hpf (0-5); pH Urine 5.5 (4.5-7.5)
[2024-12-26] MEDS: CEFEPIME 2000MG 2,000 MG/20 ML SYR IV STA (23:19)
--- NOTE | 2024-12-26 23:58 | Emergency Department Note ---
Impression & Plan UTI due to extended-spectrum beta lactamase (ESBL) producing Escherichia coli, Flank Pain ED Provider Note NAME: CYNTHIA KOHLI AGE: 74 SEX: F : 1950 ARRIVES VIA: Walk-In INFORMANT: Patient, ED PROVIDER(S): Lucero Ramos MD CHIEF COMPLAINT: UTI HPI: This is a 74-year-old female presenting for UTI concerns. Patient notes that she was on antibiotics previously including possible Keflex and Macrobid. She had urine cultures which showed multiple drug resistances and only IV medications were sensitive. Patient states she has had over 1 history of this UTI and the symptoms are still not going away. She reports no fever, chills, nausea or vomiting. ROS: See above HPI for pertinent positives & negatives. A total of 10 systems reviewed and were otherwise negative. PAST MEDICAL HISTORY: See Below PAST SURGICAL HISTORY: See Below FAMILY HISTORY: See Below SOCIAL HISTORY: See Below HOME MEDICATIONS: See Below ALLERGIES: See Below VITALS: See Below PHYSICAL EXAMINATION: General: resting comfortably in no acute distress Head: Normocephalic and atraumatic Eyes: Normal inspection, extraocular muscles intact Ear, nose, throat: Normal external exam Neck: Normal range of motion Respiratory: lungs clear to auscultation bilaterally Cardiovascular: Regular rate/rhythm, no murmur GI: soft, nontender, no guarding or rebound Extremities: nontender, moves all extremities Neuro: The patient awake and alert, appropriately conversive, no focal deficits, symmetric faces Skin: Warm, dry, and intact MEDICAL DECISION MAKING: This 74-year-old female present for UTI. After checking [facility] records by case finishing machine adjuster, I do see the drug resistance to almost all drugs suffer cefepime and gentamicin, meropenem and nitrofurantoin. Due to the nitrofurantoin failure, will admit for drug-resistant UTI. -Bloodwork is reviewed showing leukocytosis to 19.25 otherwise no significant abnormalities noted. -Urinalysis continues to be positive -Will start cefepime for drug-resistant UTI -Discussed with Dr. Chong for admission. He does request CT imaging at this time as old CT revealed hydronephrosis and obstructive uropathy Differential diagnosis: UTI, pyelonephritis, hydronephrosis, renal colic Diagnostics interpreted by me: ECG: None Cardiac Monitoring: An order was placed for continuous cardiac monitoring. The monitor shows a rate of 78 with sinus rhythm. Past Med/Surg History Problem List (Updated 12/27/24 @ 02:29 by Lucero Ramos MD) Flank Pain (Acute) UTI due to extended-spectrum beta lactamase (ESBL) producing Escherichia coli (Acute) CMC arthritis, thumb, degenerative Trigger finger Encounter for pre-operative examination Medical History Asthma Cancer Cardiac murmur CMC arthritis, thumb, degenerative Environmental and seasonal allergies Osteoarthritis Trigger finger Surgical History H/O: hysterectomy History of tooth extraction History of total knee replacement Hx of LASIK Family History Father Family history of diabetes mellitus Social History Smoking Status: Never smoker Second Hand Exposure: No; Do You Dip or Chew Tobacco: No; Hx Alcohol Use: No Hx Substance Use: No Preferred Language: Korean Communication Ability: Effective 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 Beliefs That Will Affect Care: None Current Living Situation: Alone Feels Safe at Home: Yes Assistive Devices: Glasses Allergies Allergies Allergy/AdvReac Type Severity Reaction Status Date / Time bee venom protein (honey bee) Allergy Severe ANAPHYLAXIS Verified 09/05/19 09:10 clindamycin Allergy Mild RASH Verified 09/05/19 09:10 erythromycin base Allergy Mild RASH Verified 09/05/19 09:10 Home Meds Home Medications Medication Instructions Recorded Confirmed atorvastatin 20 mg tablet 20 mg PO DAILY 12/27/24 12/27/24 metformin 500 mg tablet 500 mg PO BIDWMEAL 12/27/24 12/27/24 nitrofurantoin 100 mg PO BID 12/27/24 12/27/24 monohydrate/macrocrystals 100 mg capsule Results & Data (ED) Vital Signs Vital Signs - 24 hr 12/26/24 20:22 12/26/24 21:07 12/26/24 21:39 Temperature 36.5 C Temperature Source Oral Pulse Rate 93 H 84 73 Pulse Rate from SpO2 Sensor 74 Respiratory Rate 16 24 Respiratory Effort / Characteristics Non-Labored Spontaneous Respiratory Depth Normal Respiratory Pattern Regular Blood Pressure 149/85 H 123/77 Blood Pressure Mean 106 92 Pulse Oximetry 95 90 Oxygen Delivery Method Room Air Sepsis Recent Fever Within 48 Hours No Sepsis New/Unexplained Change in Mental Status No Sepsis Action Taken by Nursing No Action Required 12/26/24 22:00 12/26/24 22:30 12/26/24 23:00 Temperature Temperature Source Pulse Rate 72 73 70 Pulse Rate from SpO2 Sensor 67 Respiratory Rate 24 15 24 Respiratory Effort / Characteristics Respiratory Depth Respiratory Pattern Blood Pressure 120/71 126/79 124/85 Blood Pressure Mean 88 94 99 Pulse Oximetry 94 93 90 Oxygen Delivery Method Room Air Room Air Sepsis Recent Fever Within 48 Hours Sepsis New/Unexplained Change in Mental Status Sepsis Action Taken by Nursing 12/26/24 23:30 Temperature Temperature Source Pulse Rate 73 Pulse Rate from SpO2 Sensor Respiratory Rate 18 Respiratory Effort / Characteristics Respiratory Depth Respiratory Pattern Blood Pressure 119/72 Blood Pressure Mean 87 Pulse Oximetry 91 Oxygen Delivery Method Room Air Sepsis Recent Fever Within 48 Hours Sepsis New/Unexplained Change in Mental Status Sepsis Action Taken by Nursing Laboratory Data 12/26/24 21:05 12/26/24 21:05 Lab Results 12/26/24 Range/Units 21:05 WBC 19.25 H (4.8-10.8) K/ul RBC 4.44 (4.20-5.40) M/uL Hgb 13.2 (12.0-16.0) g/dl Hct 40.4 (37.0-47.0) % MCV 91.0 (80.0-100.0) fL MCH 29.7 (25.0-34.0) pg MCHC 32.7 (32.0-36.0) g/dL RDW Std Deviation 44.8 (36.4-46.3) fL RDW Coeff of Remberto 13.2 (11.5-14.5) % Plt Count 333 (130-400) K/uL MPV 11.3 (9.4-12.4) fL Immature Gran % (Auto) 0.7 % Neut % (Auto) 80.0 % Lymph % (Auto) 8.4 % [place] % (Auto) 8.2 % Eos % (Auto) 2.3 % Baso % (Auto) 0.4 % Neut # (Auto) 15.40 H (1.40-6.50) K/uL Lymph # (Auto) 1.61 (1.20-3.40) K/uL [place] # (Auto) 1.58 H (0.11-0.59) K/uL Eos # (Auto) 0.45 (0.00-0.50) K/uL Baso # (Auto) 0.08 (0.00-0.20) K/uL Immature Gran # (Auto) 0.13 (0.01-0.20) K/uL Sodium 136 (136-145) mmol/L Potassium 3.6 (3.5-5.1) mmol/L Chloride 102 (98-107) mmol/L Carbon Dioxide 25 (21-32) mmol/L Anion Gap 9 (3-11) BUN 16 (6-23) mg/dl Creatinine 0.75 (0.6-1.2) mg/dl Est Cr Clr Drug Dosing 62.2 ml/min eGFR 83.49 BUN/Creatinine Ratio 21.3 H (10-20) Glucose 175 H (70-99(Fasting)) mg/dl Calcium 10.3 (8.6-10.3) mg/dl Total Bilirubin 0.6 (0.2-1.0) mg/dl AST 13 (13-39) U/L ALT 18 (7-52) U/L Alkaline Phosphatase 85 (34-104) U/L Total Protein 7.7 (6.0-8.3) gm/dl Albumin 4.2 (3.4-5.0) gm/dl Globulin 3.5 (2.5-4.0) gm/dl Albumin/Globulin Ratio 1.2 (0.9-2) Urine Color Yellow Urine Appearance Cloudy A (Clear) Urine pH 5.5 (4.5-7.5) Ur Specific [place] 1.016 (1.000-1.030) Urine Protein 2+ H (Negative) Urine Glucose (UA) Negative (Negative) Urine Ketones 1+ H (Negative) Urine Blood 1+ H (Negative) Urine Nitrite Negative (Negative) Urine Bilirubin Negative (Negative) Urine Urobilinogen Negative (Negative) Ur Leukocyte Esterase 3+ H (Negative) Urine WBC (Auto) >50 H (0-5) /hpf Urine RBC (Auto) 6-10 H (0-2) /hpf U Hyaline Cast (Auto) 6-10 H (0-2) /lpf U Epithel Cells (Auto) 3-5 H (0-2) /hpf Urine Bacteria (Auto) None Seen (None Seen) Administered Medications Discontinued Medications Cefepime HCl (Maxipime 2000mg) 2,000 mg in 20 mls @ 5 mls/min IV NOW STA; Protocol Stop: 12/26/24 22:38 Last Admin: 12/26/24 23:19 Dose: 5 mls/min Documented By: ROSALES Ioversol (Optiray 320 100ml) 100 ml IV ONCE ONE Stop: 12/27/24 00:55 Last Admin: 12/27/24 00:54 Dose: 93 ml Documented By: EDGARD Imaging Data Radiologist's Impression: Abdomen/Pelvis CT 12/27/24 00:22 EXAM: CT abd pelvis IV con only CLINICAL HISTORY: Recurrent UTI, hydronephrosis, L hypoenchancement? TECHNIQUE: CT of the abdomen and pelvis was performed, with the following protocol: axial images, and reconstructed coronal and sagittal images. Intravenous contrast was administered. One of the following dose reduction techniques was utilized for this exam: Automated exposure control, adjustment of the mA and/or kV according to patient size, and use of iterative reconstruction. COMPARISON: 09/05/2019 FINDINGS: Sections of lower thorax show basal interstitial fibrotic changes. Abdomen: Liver: 16 cm in size. No focal lesions, cysts, or masses were identified. Gallbladder and Biliary System: The gallbladder is normal in size and shape. No wall thickening, pericholecystic fluid, or gallstones were identified. Pancreas: Pancreatic head, body, and tail are visualized and appear normal in size and density. No pancreatic masses or calcifications were noted. Spleen: Normal in size, shape, and density. No splenic lesions or masses were identified. Kidneys and Adrenal Glands: Left vesicoureteric junction 6 mm calculus, resulting in mild upstream hydroureteronephrosis with mild enhancing wall thickening of left ureter, showing periureteric fat stranding. Left kidney appears bulky and edematous with perinephric fat stranding. Few tiny 1-3 mm calculi in left kidney. Few non-obstructive calculi in right kidney, largest measuring 5 mm in inferior calyx. Right kidney is normal in size, shape, and position. Exophytic 4 x 3 cm cortical cyst at lower pole. Minimal perinephric fat stranding. Both adrenal glands appear slightly bulky and nodular. Pelvis: Urinary Bladder: Partially distended. Post hysterectomy status. No adnexal lesions. Peritoneal and Retroperitoneal Structures: No free fluid or abnormal fluid collections were identified within the abdomen or pelvis. The abdominal aorta shows atherosclerotic changes with calcified plaques. Bowel: Few scattered uncomplicated colonic diverticulae. The visualized bowel loops are normal in caliber and appearance. No evidence of bowel obstruction or wall thickening. Appendix appears unremarkable. Bones and Soft Tissues: Degenerative changes in lumbar spine. Grade I anterolisthesis of L5 over S1 with bilateral L5 pars defect. IMPRESSION: 1. Left vesicoureteric junction 6 mm calculus, resulting in mild upstream hydroureteronephrosis with mild enhancing wall thickening of left ureter, showing periureteric fat stranding with obstructive nephropathy 2. Multiple tiny 1-3 mm calculi in left kidney. 3. Multiple non-obstructive calculi in right kidney, largest measuring 5 mm in inferior calyx. 4. Mild hepatomegaly 5. The prior CT study dated 09/05/2019 also showed left ureteric junction 5mm calculus with mild hydroureteronephrosis and multiple calculi in both kidneys. Electronically signed by Tova Rivera 12-27-2024 02:16 AM Discharge Plan Visit Data Chief Complaint: Flank Pain Stated Complaint: KIDNEY INFECTION ED Provider: Lucero Ramos Discharge Problem: UTI due to extended-spectrum beta lactamase (ESBL) producing Escherichia coli, Flank Pain
[2024-12-27] MEDS: OPTIRAY 320 100ml IV ONE (00:54)
--- NOTE | 2024-12-27 01:19 | History & Physical Report ---
Date of Service December 27, 2024 Assessment & Plan (1) UTI due to extended-spectrum beta lactamase (ESBL) producing Escherichia coli: Plan: 74-year-old female with past med history significant for prediabetes, dyslipidemia, seasonal allergic rhinitis, history of kidney stones calcium oxalate, osteoarthrosis, bee sting induced anaphylaxis, need for subacute bacterial endocarditis prophylaxis was sent in by PCP for failed outpatient treatment with UTI with multidrug-resistant E. coli and also CAT scan done on 12/23/2024 showing possible obstructive kidney stone. Patient says she having burning micturition since early November and she is on second cycle of ant ibiotics. Currently on Macrobid. Burning micturition is improving. Denies any fevers. Has back pain. No hematuria. Normal bowel movements. Appetite is down lately. No nausea. No chest pain or shortness of. No headache. No runny nose or sore throat. No cough. Currently resting comfortably and hemodynamic stable. Multidrug-resistant E. coli Possible ESBL pyelonephritis Acute UTI Cultures from 12/11/2024 shows E. coli only susceptible to cefepime, gentamicin, and meropenem and Macrobid CT scan done on 10/22/2025 shows: LEFT ureteritis and pyelonephritis. Diffuse patchy areas of hypoenhancement involving the left kidney. There is moderate left hydronephrosis probably from distal obstructing stone (not visualized within the field of view), associated with a ureteral inflammation. Currently afebrile and hemodynamics stable. ER gave cefepime and ordered CT scan we will follow the results Will continue with IV Invanz and fluids Ct scan showing :1. Left vesicoureteric junction 6 mm calculus, resulting in mild upstream hydroureteronephrosis with mild enhancing wall thickening of left ureter, showing periureteric fat stranding with obstructive nephropathy . 2. Multiple tiny 1-3 mm calculi in left kidney. 3. Multiple non-obstructive calculi in right kidney, largest measuring 5 mm in inferior calyx. 4. Mild hepatomegaly Consulted Urology. Diabetes Hold metformin Sliding scale Will follow HbA1c levels and blood sugars. Hyperlipidemia Statin DVT prophylaxis SCDs for now Disposition Med/telemetry Full code. History of Present Illness Chief Complaint: Multidrug-resistant UTI and possible obstructing kidney stone Primary Care Provider: Krystal Fuentes MD 74-year-old female with past med history significant for prediabetes, dyslipidemia, seasonal allergic rhinitis, history of kidney stones calcium oxalate, osteoarthrosis, bee sting induced anaphylaxis, need for subacute bacterial endocarditis prophylaxis was sent in by PCP for failed outpatient treatment with UTI with multidrug-resistant E. coli and also CAT scan done on 12/23/2024 showing possible obstructive kidney stone. Patient says she having burning micturition since early November and she is on second cycle of antibiotics. Currently on Macrobid. Burning micturition is improving. Denies any fevers. Has back pain. No hematuria. Normal bowel movements. Appetite is down lately. No nausea. No chest pain or shortness of. No headache. No runny nose or sore throat. No cough. Currently resting comfortably and hemodynamic stable. Past medical history. As mentioned above Past surgical history. Cystourethroscopy with lithotripsy, total hysterectomy Social history. Quit smoking 1980s. Smoked 0.5 pack a day for 11 years. No alcohol. No drug use. Family history. Father had diabetes. Heart attack. Allergies Allergy/AdvReac Type Severity Reaction Status Date / Time bee venom protein (honey bee) Allergy Severe ANAPHYLAXIS Verified 09/05/19 09:10 clindamycin Allergy Mild RASH Verified 09/05/19 09:10 erythromycin base Allergy Mild RASH Verified 09/05/19 09:10 Home Medications Medication Instructions Recorded Confirmed Type atorvastatin 20 mg tablet 20 mg PO DAILY 12/27/24 12/27/24 History metformin 500 mg tablet 500 mg PO BIDWMEAL 12/27/24 12/27/24 History nitrofurantoin 100 mg PO BID 12/27/24 12/27/24 History monohydrate/macrocrystals 100 mg capsule Past Med/Surg History Problem List (Updated 12/27/24 @ 02:29 by Lucero Ramos MD) Flank Pain (Acute) UTI due to extended-spectrum beta lactamase (ESBL) producing Escherichia coli (Acute) CMC arthritis, thumb, degenerative Trigger finger Encounter for pre-operative examination Medical History Asthma Cancer Cardiac murmur CMC arthritis, thumb, degenerative Environmental and seasonal allergies Osteoarthritis Trigger finger Surgical History H/O: hysterectomy History of tooth extraction History of total knee replacement Hx of LASIK Family History Father Family history of diabetes mellitus Social History Smoking Status: Former smoker Second Hand Exposure: No; Do You Dip or Chew Tobacco: No; Tobacco Cessation Education Requested by Patient: No Hx Alcohol Use: No Hx Substance Use: No Preferred Language: Kyrgyz Communication Ability: Effective Insurance Inspector Required: No Beliefs That Will Affect Care: None Current Living Situation: Family Other Information That Helps Us Care for You: No Feels Safe at Home: Yes Safety Concerns: Feels Safe At This Time Assistive Devices: None Review of Systems Review of Systems: All systems reviewed & are unremarkable except as noted in HPI & below Physical Exam Physical Exam: General- Not in distress Head- atraumatic Eyes- PERRL. ENT- oropharynx clear Neck- supple, no JVD. Lungs- clear to auscultation no wheezing or crackles Heart- regular rhythm; no murmur, no gallop. Abdomen- normal bowel sounds, soft, nontender, no distension Extremities- no pretibial edema, no erythema seen Neuro- alert, oriented PERRL, no facial palsy; no dysarthria; moves extremities Results & Data Results & Data Vital Signs (Past 12 Hours) Vital Signs Temp Pulse Resp BP Pulse Ox O2 Del Method 12/26/24 23:30 73 18 119/72 91 Room Air 12/26/24 23:00 70 24 124/85 90 Room Air 12/26/24 22:30 73 15 126/79 93 Room Air 12/26/24 22:00 72 24 120/71 94 12/26/24 21:39 73 24 123/77 90 12/26/24 21:07 84 12/26/24 20:22 36.5 C 93 H 16 149/85 H 95 Room Air Diagnostic Findings Laboratory Results WBC 19.25 K/ul (4.8-10.8) H 12/26/24 21:05 RBC 4.44 M/uL (4.20-5.40) 12/26/24 21:05 Hgb 13.2 g/dl (12.0-16.0) 12/26/24 21:05 Hct 40.4 % (37.0-47.0) 12/26/24 21:05 MCV 91.0 fL (80.0-100.0) 12/26/24 21:05 MCH 29.7 pg (25.0-34.0) 12/26/24 21:05 MCHC 32.7 g/dL (32.0-36.0) 12/26/24 21:05 RDW Std Deviation 44.8 fL (36.4-46.3) 12/26/24 21:05 RDW Coeff of Remberto 13.2 % (11.5-14.5) 12/26/24 21:05 Plt Count 333 K/uL (130-400) 12/26/24 21:05 MPV 11.3 fL (9.4-12.4) 12/26/24 21:05 Immature Gran % (Auto) 0.7 % 12/26/24 21: Neut % (Auto) 80.0 % 12/26/24 21:05 Lymph % (Auto) 8.4 % 12/26/24 21:05 [place] % (Auto) 8.2 % 12/26/24 21:05 Eos % (Auto) 2.3 % 12/26/24 21:05 Baso % (Auto) 0.4 % 12/26/24 21:05 Neut # (Auto) 15.40 K/uL (1.40-6.50) H 12/26/24 21:05 Lymph # (Auto) 1.61 K/uL (1.20-3.40) 12/26/24 21:05 [place] # (Auto) 1.58 K/uL (0.11-0.59) H 12/26/24 21:05 Eos # (Auto) 0.45 K/uL (0.00-0.50) 12/26/24 21:05 Baso # (Auto) 0.08 K/uL (0.00-0.20) 12/26/24 21:05 Immature Gran # (Auto) 0.13 K/uL (0.01-0.20) 12/26/24 21:05 Sodium 136 mmol/L (136-145) 12/26/24 21:05 Potassium 3.6 mmol/L (3.5-5.1) 12/26/24 21:05 Chloride 102 mmol/L (98-107) 12/26/24 21:05 Carbon Dioxide 25 mmol/L (21-32) 12/26/24 21:05 Anion Gap 9 (3-11) 12/26/24 21:05 BUN 16 mg/dl (6-23) 12/26/24 21:05 Creatinine 0.75 mg/dl (0.6-1.2) 12/26/24 21:05 Est Cr Clr Drug Dosing 62.2 ml/min 12/26/24 21:05 eGFR 83.49 12/26/24 21:05 BUN/Creatinine Ratio 21.3 (10-20) H 12/26/24 21:05 Glucose 175 mg/dl (70-99(Fasting)) H 12/26/24 21:05 Calcium 10.3 mg/dl (8.6-10.3) 12/26/24 21:05 Total Bilirubin 0.6 mg/dl (0.2-1.0) 12/26/24 21:05 AST 13 U/L (13-39) 12/26/24 21:05 ALT 18 U/L (7-52) 12/26/24 21:05 Alkaline Phosphatase 85 U/L (34-104) 12/26/24 21:05 Total Protein 7.7 gm/dl (6.0-8.3) 12/26/24 21:05 Albumin 4.2 gm/dl (3.4-5.0) 12/26/24 21:05 Globulin 3.5 gm/dl (2.5-4.0) 12/26/24 21:05 Albumin/Globulin Ratio 1.2 (0.9-2) 12/26/24 21:05 Urine Color Yellow 12/26/24 21:05 Urine Appearance Cloudy (Clear) A 12/26/24 21:05 Urine pH 5.5 (4.5-7.5) 12/26/24 21:05 Ur Specific [place] 1.016 (1.000-1.030) 12/26/24 21:05 Urine Protein 2+ (Negative) H 12/26/24 21:05 Urine Glucose (UA) Negative (Negative) 12/26/24 21:05 Urine Ketones 1+ (Negative) H 12/26/24 21:05 Urine Blood 1+ (Negative) H 12/26/24 21:05 Urine Nitrite Negative (Negative) 12/26/24 21:05 Urine Bilirubin Negative (Negative) 12/26/24 21:05 Urine Urobilinogen Negative (Negative) 12/26/24 21:05 Ur Leukocyte Esterase 3+ (Negative) H 12/26/24 21:05 Urine WBC (Auto) >50 /hpf (0-5) H 12/26/24 21:05 Urine RBC (Auto) 6-10 /hpf (0-2) H 12/26/24 21:05 U Hyaline Cast (Auto) 6-10 /lpf (0-2) H 12/26/24 21:05 U Epithel Cells (Auto) 3-5 /hpf (0-2) H 12/26/24 21:05 Urine Bacteria (Auto) None Seen (None Seen) 12/26/24 21:05 Code Status & VTE Plan VTE Prophylaxis Plan VTE Prophylaxis will be ordered: Yes
--- NOTE | 2024-12-27 02:16 | CT Scan Report ---
EXAM: CT abd pelvis IV con only CLINICAL HISTORY: Recurrent UTI, hydronephrosis, L hypoenchancement? TECHNIQUE: CT of the abdomen and pelvis was performed, with the following protocol: axial images, and reconstructed coronal and sagittal images. Intravenous contrast was administered. One of the following dose reduction techniques was utilized for this exam: Automated exposure control, adjustment of the mA and/or kV according to patient size, and use of iterative reconstruction. COMPARISON: 09/05/2019 FINDINGS: Sections of lower thorax show basal interstitial fibrotic changes. Abdomen: Liver: 16 cm in size. No focal lesions, cysts, or masses were identified. Gallbladder and Biliary System: The gallbladder is normal in size and shape. No wall thickening, pericholecystic fluid, or gallstones were identified. Pancreas: Pancreatic head, body, and tail are visualized and appear normal in size and density. No pancreatic masses or calcifications were noted. Spleen: Normal in size, shape, and density. No splenic lesions or masses were identified. Kidneys and Adrenal Glands: Left vesicoureteric junction 6 mm calculus, resulting in mild upstream hydroureteronephrosis with mild enhancing wall thickening of left ureter, showing periureteric fat stranding. Left kidney appears bulky and edematous with perinephric fat stranding. Few tiny 1-3 mm calculi in left kidney. Few non-obstructive calculi in right kidney, largest measuring 5 mm in inferior calyx. Right kidney is normal in size, shape, and position. Exophytic 4 x 3 cm cortical cyst at lower pole. Minimal perinephric fat stranding. Both adrenal glands appear slightly bulky and nodular. Pelvis: Urinary Bladder: Partially distended. Post hysterectomy status. No adnexal lesions. Peritoneal and Retroperitoneal Structures: No free fluid or abnormal fluid collections were identified within the abdomen or pelvis. The abdominal aorta shows atherosclerotic changes with calcified plaques. Bowel: Few scattered uncomplicated colonic diverticulae. The visualized bowel loops are normal in caliber and appearance. No evidence of bowel obstruction or wall thickening. Appendix appears unremarkable. Bones and Soft Tissues: Degenerative changes in lumbar spine. Grade I anterolisthesis of L5 over S1 with bilateral L5 pars defect. IMPRESSION: 1. Left vesicoureteric junction 6 mm calculus, resulting in mild upstream hydroureteronephrosis with mild enhancing wall thickening of left ureter, showing periureteric fat stranding with obstructive nephropathy 2. Multiple tiny 1-3 mm calculi in left kidney. 3. Multiple non-obstructive calculi in right kidney, largest measuring 5 mm in inferior calyx. 4. Mild hepatomegaly 5. The prior CT study dated 09/05/2019 also showed left ureteric junction 5mm calculus with mild hydroureteronephrosis and multiple calculi in both kidneys. Electronically signed by Tova Rivera 12-27-2024 02:16 AM
[2024-12-27] MEDS ORDERED: GLUCAGON FOR INJ 1 MG VIAL SQ PRN (02:31)
[2024-12-27] MEDS ORDERED: POLYETHYLENE (MIRALAX) 17 GM PACK PO PRN (02:31)
[2024-12-27] MEDS ORDERED: ACETAMINOPHEN 325 MG TAB PO PRN (02:31)
[2024-12-27] MEDS ORDERED: GLUCOSE 40% GEL 15 GM TUBE PO PRN (02:31)
[2024-12-27] MEDS ORDERED: NITROGLYCERIN SL 0.4 MG/TAB TAB SL PRN (02:31)
[2024-12-27] MEDS ORDERED: CARBOHYDRATES FOR HYPOGLYCEMIA PO PRN (02:31)
[2024-12-27] MEDS ORDERED: GLUCOSE 10 TAB/TUBE PO PRN (02:31)
[2024-12-27] MEDS ORDERED: DEXTROSE 50% 50 ML SYRINGE IV PRN (02:31)
[2024-12-27] MEDS: SODIUM CHLORIDE 0.9% 1,000 ML IV SCH (03:18)
[2024-12-27] MEDS: INSULIN ASPART PER UNIT CHARGE SC SCH ×2 (06:11→17:17)
[2024-12-27 07:37] LABS: BUN Creatinine Ratio 23.2 (10-20); Calcium 9.3 mg/dl (8.6-10.3); Creatinine Clr Calc Pharmacy 83.4 ml/min; Potassium 3.6 mmol/L (3.5-5.1)
[2024-12-27 07:42] LABS: Basophils # (auto) 0.09 K/uL (0.00-0.20); Basophils % (auto) 0.7 %; Eosinophils % (auto) 6.9 %; Hematocrit (blood only) 35.7 % (37.0-47.0); Hemoglobin 11.6 g/dl (12.0-16.0); Immature Granulocytes # (auto) 0.06 K/uL (0.01-0.20); Immature Granulocytes % (auto) 0.5 %; Lymphocytes # (auto) 1.63 K/uL (1.20-3.40); Lymphocytes % (auto) 12.5 %; Mean Corpuscular Hemoglobin 29.7 pg (25.0-34.0); Mean Corpuscular Hgb Conc 32.5 g/dL (32.0-36.0); Mean Corpuscular Volume 91.5 fL (80.0-100.0); Mean Platelet Volume 11.1 fL (9.4-12.4); Monocytes # (auto) 1.61 K/uL (0.11-0.59); Monocytes % (auto) 12.3 %; Neutrophils # (auto) 8.79 K/uL (1.40-6.50); Neutrophils % (auto) 67.1 %; Platelet Count 284 K/uL (130-400); RDW Coefficient of Variation 13.4 % (11.5-14.5); RDW Standard Deviation 45.5 fL (36.4-46.3); White Blood Count 13.08 K/ul (4.8-10.8)
[2024-12-27] MEDS: ERTAPENEM 1000MG 1,000 MG/10 ML SYR IV SCH (08:59)
[2024-12-27] MEDS: ATORVASTATIN 20 MG TAB PO SCH (08:59)
--- NOTE | 2024-12-27 09:03 | Urology Consultation ---
Date of Consultation December 27, 2024 Assessment & Plan (1) Calculus of distal left ureter: (2) UTI due to extended-spectrum beta lactamase (ESBL) producing Escherichia coli: 74-year-old female admitted for complicated UTI. She failed outpatient treatment of UTI with multidrug-resistant E. coli. CT imaging demonstrates an obstructing left UVJ calculus. Patient afebrile and hemodynamically stable Labs reviewedcreatinine 0.56, WBC improved to 13.08 Urine culture pending Per admitting notes, outpatient urine culture with multidrug-resistant E. coli Currently on cefepime per previous culture CT imaging reviewed and discussed6 mm obstructing left UVJ calculus with mild hydronephrosis; additional nonobstructing renal calculi bilaterally We discussed recommendation for intervention with cystoscopy and left ureteral stent placement given obstructing stone and UTI She understands that stone treatment will take place at a later date Proceed with cystoscopy and left ureteral stent placement today Risks and benefits of procedure to be reviewed with patient by Dr. Colin Boudreaux n.p.o. for procedure Continue with scheduled antibiotics Continue supportive care medical management per hospital medicine service Attending note: Patient independently assessed, examined, interviewed, and evaluated. Agree with note as above. Patient's vitals and labs were all reviewed. Pertinent values in the HPI and plan section. Hemoglobin was 11.6. Creatinine 0.56 white count 13.0 imaging was reviewed interpreted by myself. Significant obstructing stone of the distal left ureter multiple stones bilaterally. Significant hydronephrosis and hydroureter of the left side agree with read. Vitals were reviewed. Discussed findings extensively with patient and family. Reviewed with nurse practitioner as well as consulting physicians/team. Patient's complicated medical and surgical history was reviewed and summarized above. Patient's surgical, medical, social, and family history were all reviewed with pertinent values as above. Discussed patient's current diagnosis as well as concerns and issues. Reviewed different options moving forward. Discussed potential risks and benefits as well as possible options and concerns. Reviewed potential surgical options and interventions. Discussed potential issues and concerns related to intervention. Risk and benefits were discussed extensively with patient and any available family. Discussed potential risks related to anesthesia. Discussed risks of bleeding infection and injury. Risks and benefits discussed at length for procedure. These include bleeding, infection, injury to surrounding tissues or organs, and risks associated with anesthesia. Patient states understanding and agrees to proceed. Will sign consent and schedule. Plan for cystoscopy with left stent placement possible stone treatment History of Present Illness Reason for Consultation: Obstructing left ureteral stone, UTI Requesting Physician: Dr. Chong Attending Physician: Alvaro Persaud MD History of Present Illness This is a 74-year-old female with history of nephrolithiasis who was referred to the emergency department on 12/26/2024 by PCP for failed outpatient treatment of UTI with multidrug-resistant E. coli and outpatient CT scan concerning for obstructing left ureteral stone. On arrival to ED, she was afebrile and hemodynamically stable. Labs showed WBC 19.25, hemoglobin 13.2, creatinine 0.75. Urinalysis showed 3+ LE, >50 WBC, 6-10 RBC, 3-5 epithelial cells and negative for bacteria. Workup included CT abdomen pelvis which demonstrated an obstructing 6 mm left UVJ stone resulting in mild upstream hydroureteronephrosis with mild enhancing wall thickening of the left ureter and periureteral fat stranding. Multiple nonobstructing calculi bilaterally. Patient was treated with IV cefepime in the emergency department. She was admitted to the medicine service for further management. Urology is consulted for left ureteral stone and UTI. Patient seen and examined at bedside this morning. She is awake and resting in bed. Reports mild left flank discomfort intermittently. She is voiding spontaneously. She has had persistent dysuria since October. No hematuria. Denies nausea, vomiting, fever or chills at present. She is currently NPO. She reports prior history of kidney stones and prior surgical intervention for stones. Previously followed with Dr. Alfonso of [facility]. Allergies Allergy/AdvReac Type Severity Reaction Status Date / Time bee venom protein (honey bee) Allergy Severe ANAPHYLAXIS Verified 09/05/19 09:10 clindamycin Allergy Mild RASH Verified 09/05/19 09:10 erythromycin base Allergy Mild RASH Verified 09/05/19 09:10 Home Medications Medication Instructions Recorded Confirmed Type atorvastatin 20 mg tablet 20 mg PO DAILY 12/27/24 12/27/24 History metformin 500 mg tablet 500 mg PO BIDWMEAL 12/27/24 12/27/24 History nitrofurantoin 100 mg PO BID 12/27/24 12/27/24 History monohydrate/macrocrystals 100 mg capsule Patient History Medical History Osteoarthritis Cancer CERVICAL CANCER (SURGERY) Cardiac murmur "MILD" Environmental and seasonal allergies Asthma HX OF "ALLERGIC ASTHMA" Surgical History History of total knee replacement RT/LEFT H/O: hysterectomy History of tooth extraction Hx of LASIK Family History Father Family history of diabetes mellitus Social History Smoking Status: Former smoker Second Hand Exposure: No; Do You Dip or Chew Tobacco: No; Tobacco Cessation Education Requested by Patient: No Hx Alcohol Use: No Hx Substance Use: No Preferred Language: Irish Communication Ability: Effective Oxidation Engineer Required: No Beliefs That Will Affect Care: None Current Living Situation: Family Other Information That Helps Us Care for You: No Feels Safe at Home: Yes Safety Concerns: Feels Safe At This Time Assistive Devices: None Review of Systems Review of Systems: All systems reviewed & are unremarkable except as noted in HPI & below Physical Exam Constitutional: well developed and well nourished; no acute distress Respiratory: normal respiratory effort; no respiratory distress and no labored breathing Gastrointestinal (Abdomen): Inspection/Auscultation: abdomen normal to inspection Musculoskeletal: Head/Neck/Chest: normocephalic Neurologic: moves all extremities and awake Psychiatric: Orientation: alert and oriented x 3 Results & Data Vital Signs (Past 12 Hours) Vital Signs Temp Pulse Pulse Resp BP BP Pulse Ox 12/27/24 07:30 36.6 C 68 18 119/75 94 12/27/24 07:29 77 12/27/24 02:35 36.6 C 77 12 129/79 94 12/27/24 02:29 88 12/27/24 02:10 72 18 130/70 99 12/27/24 01:02 78 12/26/24 23:30 73 18 119/72 91 12/26/24 23:00 70 24 124/85 90 12/26/24 22:30 73 15 126/79 93 12/26/24 22:00 72 24 120/71 94 12/26/24 21:39 73 24 123/77 90 12/26/24 21:07 84 O2 Del Method O2 Flow Rate 12/27/24 07:30 Room Air 12/27/24 07:29 12/27/24 02:35 Room Air 12/27/24 02:29 12/27/24 02:10 Nasal Cannula 2 12/27/24 01:02 12/26/24 23:30 Room Air 12/26/24 23:00 Room Air 12/26/24 22:30 Room Air 12/26/24 22:00 12/26/24 21:39 12/26/24 21:07 PG Care Time/CCT Total # of Minutes Spent Total Time Spent with Patient: Total time spent is greater than 50% in coordination of care (as documented) at patient's floor/unit and/or counseling patient: Coding Level of Care Code 68115 INT INP/OBS CARE 2/55MIN Diagnoses Calculus of distal left ureter N20.1 UTI due to extended-spectrum beta lactamase (ESBL) producing Escherichia coli N39.0; B96.29; Z16.12
[2024-12-27 09:34] LABS: Estimated Average Glucose 128 mg/dl; Hemoglobin A1C 6.1 % (4.5-5.6)
--- NOTE | 2024-12-27 14:25 | Anesthesiology Consultation ---
Date of Service December 27, 2024 Assessment & Plan Chart Review Chart Review: Acceptable Risk for Surgery and Patient NOT seen in Pre Admission Testing Consults Requested none History Surgery Operation Date: 12/27/24 10:30 Proposed Procedures p Cystoscopy, Left Ureteral Stent Placement - Nael Shaw DO Height/Weight Height: 5 ft 1 in Weight: 78.1 kg Allergies Allergy/AdvReac Type Severity Reaction Status Date / Time bee venom protein (honey bee) Allergy Severe ANAPHYLAXIS Verified 09/05/19 09:10 clindamycin Allergy Mild RASH Verified 09/05/19 09:10 erythromycin base Allergy Mild RASH Verified 09/05/19 09:10 Medications Home Medications Medication Instructions Recorded Confirmed Last Taken atorvastatin 20 mg tablet 20 mg PO DAILY 12/27/24 12/27/24 Unknown metformin 500 mg tablet 500 mg PO BIDWMEAL 12/27/24 12/27/24 Unknown nitrofurantoin 100 mg PO BID 12/27/24 12/27/24 Unknown monohydrate/macrocrystals 100 mg capsule Active Medications Generic Name Dose Route Start Last Admin Trade Name Dionteq PRN Reason Stop Dose Admin Atorvastatin Calcium 20 mg 12/27/24 09:00 12/27/24 08:59 Atorvastatin 20 Mg Tab PO 01/26/25 08:59 20 mg DAILY DARSHAN Administration Sodium Chloride 1,000 mls @ 125 mls/hr 12/27/24 02:31 12/27/24 14:18 Nss IV 12/27/24 18:30 125 mls/hr .Q8H DARSHAN Infusion Ertapenem 1,000 mg in 10 mls @ 2 mls/min 12/27/24 08:00 12/27/24 08:59 Invanz 1000mg IV 01/06/25 07:59 2 mls/min Q24H DARSHAN Administration Insulin Aspart 0 units 12/27/24 06:00 12/27/24 12:19 Insulin Aspart Per Unit Charge SC 01/26/25 05:59 Not Given Q6 DARSHAN NPO Date Last Intake of Fluids: 12/26/24 Time Last Intake of Fluids: 18:00 Date Last Intake of Solids: 12/26/24 Time Last Intake of Solids: 15:00 Past Medical History Medical History Osteoarthritis Cancer CERVICAL CANCER (SURGERY) Cardiac murmur "MILD" Environmental and seasonal allergies Asthma HX OF "ALLERGIC ASTHMA" Past Family History Family History Father Family history of diabetes mellitus Past Surgical History Surgical History History of total knee replacement RT/LEFT H/O: hysterectomy History of tooth extraction Hx of LASIK Social History Smoking Status: Former smoker tobacco type: cigarettes Do You Dip or Chew Tobacco: No Hx Alcohol Use: No Hx Substance Use: No substance use type: does not use Physical Exam Vital Signs Last Vital Signs Temp 37 C 12/27/24 14:20 Pulse 72 12/27/24 14:20 Resp 20 12/27/24 14:20 BP 143/76 H 12/27/24 14:20 Pulse Ox 95 12/27/24 14:20 O2 Del Method Room Air 12/27/24 14:20 O2 Flow Rate 2 12/27/24 02:10 Testing Laboratory Results 12/27/24 06:54 12/27/24 06:54 Hemoglobin A1c 6.1 % (4.5-5.6) H 12/27/24 06:54 Urine Color Yellow 12/26/24 21:05 Urine Appearance Cloudy (Clear) A 12/26/24 21:05 Urine pH 5.5 (4.5-7.5) 12/26/24 21:05 Ur Specific [place] 1.016 (1.000-1.030) 12/26/24 21:05 Urine Protein 2+ (Negative) H 12/26/24 21:05 Urine Glucose (UA) Negative (Negative) 12/26/24 21:05 Urine Ketones 1+ (Negative) H 12/26/24 21:05 Urine Nitrite Negative (Negative) 12/26/24 21:05 Ur Leukocyte Esterase 3+ (Negative) H 12/26/24 21:05 Urine WBC (Auto) >50 /hpf (0-5) H 12/26/24 21:05 Urine RBC (Auto) 6-10 /hpf (0-2) H 12/26/24 21:05 U Hyaline Cast (Auto) 6-10 /lpf (0-2) H 12/26/24 21:05 U Epithel Cells (Auto) 3-5 /hpf (0-2) H 12/26/24 21:05 Urine Bacteria (Auto) None Seen (None Seen) 12/26/24 21:05 12/26/24 21:05 Urine Culture - Preliminary Urine,Clean Catch Pin-point growth present, reincubating. 12/27/24 12/27/24 12/27/24 12:07 06:05 03:11 POC Glucose 122 H 104 H 165 H
[2024-12-27] MEDS ORDERED: LACTATED RINGER'S 1,000 ML IV SCH (14:30)
[2024-12-27] MEDS ORDERED: ePHEDrine sulfate 50 MG/ML AMP IV PRN (14:32)
[2024-12-27] MEDS ORDERED: ATROPINE SULFATE 0.1 MG/ML 10ML SYR IV PRN (14:32)
[2024-12-27] MEDS ORDERED: fentaNYL citrate PF 100 MCG/2 ML VIAL IV PRN (14:32)
[2024-12-27] MEDS ORDERED: ONDANSETRON INJ 2 MG/ML 2 ML VIAL IV PRN (14:32)
[2024-12-27] MEDS ORDERED: MIDAZOLAM HCL 1 MG/ML 2ML VIAL ONE (15:00)
[2024-12-27] MEDS ORDERED: LIDOCAINE 2% 2 ML VIAL/AMP(20MG/ML) INFIL ONE (15:01)
[2024-12-27] MEDS ORDERED: fentaNYL citrate PF 100 MCG/2 ML VIAL ONE (15:02)
[2024-12-27] MEDS ORDERED: ePHEDrine sulfate 50 MG/ML AMP ONE (15:04)
[2024-12-27] MEDS: DIATRIZOATE MEGLUMINE 30% 100ML VIAL INSTIL ONE (15:58)
--- NOTE | 2024-12-27 15:59 | Operative Report ---
PG Post Operative Report Pre & Post Diagnosis Operation Date: 12/27/24 10:30 Pre-Op Diagnosis: Calculus of distal left ureter Post-Op Diagnosis: Calculus of distal left ureter I identified the patient and participated in the time-out.: Yes Procedure Operation Date: 12/27/24 10:30 Actual Procedures p Cystoscopy with Left Ureteronephroscopy, Retrograde Pyelogram, Ureteral Dilation, Laser Destruction of Stone, Stone Basket Extraction, Ureteral Stent Placement- Left(Left) - Nael Shaw DO Surgeon Nael Shaw, II, DO Gear Machine Operator None Estimated Blood Loss 1 Findings Consistent with Post-Op Diagnosis Stone in distal ureter/UVJ obstructing partially. Unable to bypass with 5 fr catheter. Distal Stone destroyed to dust and small fragments and larger fragments removed. Specimens Stone Fragments - Distal Ureter Stone Drains 4.8 Fr x 24 cm Left Anesthesia Type General Complications none Disposition Disposition: Recovery Room Indications Patient with bothersome stones. Risks and benefits discussed at length. Description of Procedure Patient was consented and brought back to the operating room. Patient was placed under anesthesia in the supine position and moved to the dorsal lithotomy position. Patient was prepped and draped in the regular sterile fashion. A time out was completed. A 30degree Cystoscope was placed into the bladder and the entire bladder was examined. The UO's were identified. The stone was found to be partially obstructing at the distal ureter on the left UVJ. The UO was cannulized with a catheter and a retrograde pyelogram was completed. The stones severely restricted in the 5 [place] open-ended catheter and had difficulty bypassing the area. A wire was then placed this was able to bypassed the stone. The Rigid ureteroscope was taken into the ureter. The stone was identified. A laser fiber was selected and the stones were pulverized to dust and small fragments. Larger fragments were grasped and removed and sent for analysis. The entire area was once again examined. No residual large fragments or areas of concern were noted. The scope was slowly removed with the wire left in place. Contrast was placed through the scope for a pyelogram to assist in stent placement. The entire ureter was examined as the scope was slowly removed. No o bstructions or other areas of concern were noted. With the wire in place, a 4.8 Fr Double J stent was placed. It was confirmed with fluoroscopy. With the stent in place, the bladder was emptied. The scope was removed. The patient was cleaned, aroused from anesthesia, and transferred to the pacu in stable condition having tolerated the procedure well with no complications. I was present and participated in all aspects of the procedure. The patient will be monitored in the PACU until transferred. Will plan to follow-up in 1 to 2 weeks to discuss possible further stone treatment. Distal stones was able to be completely broken up and already fragments removed. May need to have renal stone treatment I attest to the content of the Intraoperative Record and any orders documented therein. Any exceptions are noted below.
--- NOTE | 2024-12-27 16:09 | Communication Note ---
Patient seen and examined at bedside. Patient received stent placement today, discussed with urology, will require monitoring overnight. Likely discharge tomorrow as long as no complications and tolerating well. Date of Service: December 27, 2024
--- NOTE | 2024-12-27 16:10 | Fluoroscopy Report ---
FL retrograde includes kub CLINICAL HISTORY: ADD ON STENT / RETROGRADE COMPARISON STUDY: CT of the abdomen and pelvis performed earlier today. FLUOROSCOPY TIME: 16 seconds. Ka,r: 4.57 mGy FLUOROSCOPIC IMAGES: 2 FINDINGS: Fluoroscopy was provided during left retrograde pyelogram with left ureteral stent insertio n. The stent is well-positioned. IMPRESSION: Fluoroscopy provided during left retrograde pyelogram with left ureteral stent insertion . ACT 112: Negative or not required by law. Electronically signed by: Joao Dash M.D. 12/27/2024 4:08 PM
--- NOTE | 2024-12-27 16:33 | Anesthesiology Progress Note ---
Date of Service December 27, 2024 Anesthesia Post Procedure Vital Signs Vital Signs: Temp Pulse Pulse Pulse Resp BP BP 12/27/24 16:25 70 14 131/69 12/27/24 16:15 81 14 143/71 H 12/27/24 16:05 36.1 C L 90 12 140/76 12/27/24 14:37 65 12/27/24 14:20 37 C 72 20 143/76 H 12/27/24 10:50 36.9 C 67 18 109/75 12/27/24 07:30 36.6 C 68 18 119/75 12/27/24 07:29 77 12/27/24 02:35 36.6 C 77 12 129/79 12/27/24 02:29 88 12/27/24 02:10 72 18 130/70 12/27/24 01:02 78 12/26/24 23:30 73 18 119/72 12/26/24 23:00 70 24 124/85 12/26/24 22:30 73 15 126/79 12/26/24 22:00 72 24 120/71 12/26/24 21:39 73 24 123/77 12/26/24 21:07 84 12/26/24 20:22 36.5 C 93 H 16 149/85 H Pulse Ox O2 Del Method O2 Flow Rate 12/27/24 16:25 96 Room Air 12/27/24 16:15 98 Oxymask 2 12/27/24 16:05 100 Oxymask 8 12/27/24 14:37 12/27/24 14:20 95 Room Air 12/27/24 10:50 96 Room Air 12/27/24 07:30 94 Room Air 12/27/24 07:29 12/27/24 02:35 94 Room Air 12/27/24 02:29 12/27/24 02:10 99 Nasal Cannula 2 12/27/24 01:02 12/26/24 23:30 91 Room Air 12/26/24 23:00 90 Room Air 12/26/24 22:30 93 Room Air 12/26/24 22:00 94 12/26/24 21:39 90 12/26/24 21:07 12/26/24 20:22 95 Room Air Pain Intensity Bilateral Flank: Pain Intensity: 6 Transfer of Care Handoff Completed per policy Notes Mental Status: alert / awake / arousable and participated in evaluation Patient Amnestic to Procedure: Yes Nausea / Vomiting: adequately controlled Pain: adequately controlled Airway Patency, RR, SpO2: stable & adequate BP & HR: stable & adequate Hydration State: stable & adequate Anesthetic Complications: no major complications apparent and Pt Satisfied with anesthetic care
[2024-12-27] MEDS ORDERED: Nursing to Pharmacy Communication SCH (17:00)
[2024-12-27] MEDS: LACTATED RINGER'S 1,000 ML IV SCH (17:41)
--- NOTE | 2024-12-28 08:05 | Urology Progress Note ---
Date of Service December 28, 2024 Assessment & Plan (1) Calculus of distal left ureter: (2) UTI due to extended-spectrum beta lactamase (ESBL) producing Escherichia coli: Plan: - Pt POD#1 s/p Cystoscopy with Left Ureteronephroscopy, Retrograde Pyelogram, Ureteral Dilation, Laser Destruction of Stone, Stone Basket Extraction, Ureteral Stent Placement - Doing well, progressing as expected - Afebrile, stable vitals - No new labs at this time - Subjectively feeling much better today - Tolerating left ureteral stent with minimal bother - UC from admission with Streptococcus anginosis - Outside urine culture with E. coli ESBL per admitting notes - Will likely need continuation of IV antibiotics per culture either inpatient or arranged as outpatient - Expected clinical course reviewed, all questions answered - Will arrange outpatient follow-up with our service to discuss ongoing management - will sign off, please contact our service with any additional questions or concerns Admission and Anticipated Discharge Date Admission Date: December 27, 2024 Subjective Patient awake and sitting up in bed. No acute issues overnight. Subjectively feeling better today. Denies flank pain. No fever or chills. Voiding spontaneously. Review of Systems Constitutional: as per Subjective / HPI Genitourinary: as per Subjective / HPI Physical Exam Constitutional: well developed and well nourished; no acute distress Respiratory: normal respiratory effort; no respiratory distress and no labored breathing Gastrointestinal (Abdomen): Inspection/Auscultation: abdomen normal to inspection Musculoskeletal: Head/Neck/Chest: normocephalic Neurologic: moves all extremities and awake Psychiatric: Orientation: alert and oriented x 3 Results & Data Vital Signs (Past 12 Hours) Vital Signs Temp Pulse Pulse Pulse Resp BP Pulse Ox 12/28/24 07:35 36.5 C 61 14 123/77 94 12/28/24 07:25 12/28/24 07:00 71 12/28/24 03:35 36.4 C L 63 18 130/67 96 12/27/24 23:50 36.4 C L 63 18 115/68 92 12/27/24 21:57 54 L O2 Del Method 12/28/24 07:35 Room Air 12/28/24 07:25 Room Air 12/28/24 07:00 12/28/24 03:35 Room Air 12/27/24 23:50 Room Air 12/27/24 21:57 PG Care Time/CCT Total # of Minutes Spent Total Time Spent with Patient: Total time spent is greater than 50% in coordination of care (as documented) at patient's floor/unit and/or counseling patient: Coding Level of Care Code 90901 SUB INP/OBS CARE 1/25MIN Diagnoses Calculus of distal left ureter N20.1 UTI due to extended-spectrum beta lactamase (ESBL) producing Escherichia coli N39.0; B96.29; Z16.12
[2024-12-28 08:22] LABS: Calcium 9.3 mg/dl (8.6-10.3); Potassium 3.8 mmol/L (3.5-5.1)
[2024-12-28 08:28] LABS: BUN Creatinine Ratio 28.3 (10-20); Creatinine Clr Calc Pharmacy 101.5 ml/min
[2024-12-28 08:32] LABS: Hematocrit (blood only) 37.1 % (37.0-47.0); Hemoglobin 11.5 g/dl (12.0-16.0); Mean Corpuscular Hemoglobin 29.3 pg (25.0-34.0); Mean Corpuscular Volume 94.4 fL (80.0-100.0); Mean Platelet Volume 11.1 fL (9.4-12.4); Platelet Count 293 K/uL (130-400); RDW Coefficient of Variation 13.2 % (11.5-14.5); RDW Standard Deviation 45.9 fL (36.4-46.3); Red Blood Count 3.93 M/uL (4.20-5.40); White Blood Count 10.19 K/ul (4.8-10.8)
[2024-12-28 11:24] VITALS: BP 122/71; RESP 12; TEMP 97.9; O2SAT 95
[2024-12-28 14:16] VITALS: PULSE 64
--- NOTE | 2024-12-28 14:51 | Discharge Summary ---
Discharge Summary Date of Service December 28, 2024 Principal Dx & Hospital Course #1 = Principal Diagnosis (1) UTI due to extended-spectrum beta lactamase (ESBL) producing Escherichia coli: 74-year-old female with past med history significant for prediabetes, dyslipidemia, seasonal allergic rhinitis, history of kidney stones calcium oxalate, osteoarthrosis, bee sting induced anaphylaxis, need for subacute bacterial endocarditis prophylaxis was sent in by PCP for failed outpatient treatment with UTI with multidrug-resistant E. coli and also CAT scan done on 12/23/2024 showing possible obstructive kidney stone. Patient says she having burning micturition since early November and she is on second cycle of antibiotics. Currently on Macrobid. Burning micturition is improving. Denies any fevers. Has back pain. No hematuria. Normal bowel movements. Appetite is down lately. No nausea. No chest pain or shortness of. No headache. No runny nose or sore throat. No cough. Currently resting comfortably and hemodynamic stable. Multidrug-resistant E. coli Possible ESBL, ruled out pyelonephritis Acute UTI -Cultures from 12/11/2024 shows E. coli only susceptible to cefepime, gentamicin, and meropenem and Macrobid -CT scan done on 10/22/2025 shows: -LEFT ureteritis and pyelonephritis. -Diffuse patchy areas of hypoenhancement involving the left kidney. There is moderate left hydronephrosis probably from distal obstructing stone (not visualized within the field of view), associated with a ureteral inflammation. -Currently afebrile and hemodynamics stable. ER gave cefepime and ordered CT scan we will follow the results Will continue with IV Invanz and fluids Ct scan showing :1. Left vesicoureteric junction 6 mm calculus, resulting in mild upstream hydroureteronephrosis with mild enhancing wall thickening of left ureter, showing periureteric fat stranding with obstructive nephropathy . 2. Multiple tiny 1-3 mm calculi in left kidney. 3. Multiple non-obstructive calculi in right kidney, largest measuring 5 mm in inferior calyx. 4. Mild hepatomegaly -Consulted Urology -f/u outpatient -discharged with augmentin Diabetes -Sliding scale Hyperlipidemia -Statin Notes For Next Care Provider 74-year-old female with past med history significant for prediabetes, dyslipidemia, seasonal allergic rhinitis, history of kidney stones calcium oxalate, osteoarthrosis, bee sting induced anaphylaxis, need for subacute bacterial endocarditis prophylaxis was sent in by PCP for failed outpatient treatment with UTI with multidrug-resistant E. coli and also CAT scan done on 12/23/2024 showing possible obstructive kidney stone. On medicine, urology consulted and placed urethral stent. Urine cx grew Strep. On 12/28/2024 patient medically stable for discharge. Recommend stone analysis, abx, and close follow up outpatient. Medication Changes From Visit -augmentin Admission HPI Per Admitting Provider 74-year-old female with past med history significant for prediabetes, dyslipidemia, seasonal allergic rhinitis, history of kidney stones calcium oxalate, osteoarthrosis, bee sting induced anaphylaxis, need for subacute bacterial endocarditis prophylaxis was sent in by PCP for failed outpatient treatment with UTI with multidrug-resistant E. coli and also CAT scan done on 12/23/2024 showing possible obstructive kidney stone. Patient says she having burning micturition since early November and she is on second cycle of antibiotics. Currently on Macrobid. Burning micturition is improving. Denies any fevers. Has back pain. No hematuria. Normal bowel movements. Appetite is down lately. No nausea. No chest pain or shortness of. No headache. No runny nose or sore throat. No cough. Currently resting comfortably and hemodynamic stable. Past medical history. As mentioned above Past surgical history. Cystourethroscopy with lithotripsy, total hysterectomy Social history. Quit smoking 1980s. Smoked 0.5 pack a day for 11 years. No alcohol. No drug use. Family history. Father had diabetes. Heart attack. Discharge Exam Gen: A&O 3 NAD HEENT: NCAT, EOMI, not icteric. External ears normal. No rhinorrhea. Moist mucous membranes. Neck: Supple, full range of motion, no observable masses, No meningeal sign. Lungs: No Respiratory distress. CV: RRR, no edema. Abdomen: Soft, nondistended, No rebound tenderness. MSK: No joint swelling, no redness. Skin: No rashes, petechiae, lesions. Normal color per patient. Neuro: Normal Gait, Grossly intact. Psych: Appropriate for situation. Updated Medication List Medication Instructions Recorded Confirmed Type atorvastatin 20 mg tablet 20 mg PO DAILY 12/27/24 12/27/24 History metformin 500 mg tablet 500 mg PO BIDWMEAL 12/27/24 12/27/24 History amoxicillin 500 mg-potassium 1 tab PO BID 7 days #14 tabs 12/28/24 Rx clavulanate 125 mg tablet (Augmentin) Hospital Stay Data Consultations 12/27/24 00:46 ED Decision to Admit Stat 12/27/24 07:00 Consult Urology Routine Procedures Performed Operation Date: 12/27/24 10:30 Actual Procedures s Ureteral Stent Placement- Left(Left) - Nael Shaw, DO p Cystoscopy, Ureteronephroscopy, Retrograde Pyleogram, Ureteral Dilation, Laser Destruction and Basket Extraction, - Nael Shaw, DO Diagnostic Imagining Performed 12/27/24 FL retrograde includes kub Routine 12/27/24 00:22 CT abd pelvis IV con only Stat Pending Results Patient Have Any Pending Studies at Discharge: No Discharge Instructions Given to Patient (Per Discharging Provider) 1. Please take course of antibiotics. 2. Please follow up with PCP and urology. Total Time Total Time Spent Total Time Spent (In Minutes): I spent a total of 35 minutes in direct patient care, including [id number] time with the patient and/or family, reviewing medical records, ordering and reviewing diagnostic tests, and coordinating care with other healthcare providers. This time includes: history taking, physical examination, medical decision making, counseling, ECG interpretation, imaging interpretation, lab interpretation, orders, and education, excluding time spent in the performance of separately billed services.
== END 2024-12-28 15:18 | disposition home or self-care (01) | DRG 660 ==
LOC: ED 20:17 → 2W 12-27 00:51

== ENCOUNTER 2025-03-13 09:37 | Inpatient (IN) ==
--- NOTE | 2025-03-13 09:57 | Emergency Department Note ---
Impression & Plan Kidney stone on right side Admission ED Provider Note HPI: History obtained from patient. The patient is a 74-year-old female who presents the emergency department chief complaint of right flank pain. Patient states she has had this pain in the past associated with kidney stones. Patient states she has had the pain now for the past 2 to 3 days. Patient states she has had some dysuria, she denies any vomiting. On arrival here to the ED the patient is hemodynamically stable, she appears to be in no acute distress. ROS: - Per HPI Differential Diagnosis: Kidney stone, pyelonephritis, renal abscess, costochondritis, acute cholecystitis, choledocholithiasis, amongst other potential pathologies. *Outpatient medications and allergy history reviewed. PE: General: Alert HEENT: Normocephalic, trachea midline Eyes: Extraocular eye movement is intact, no scleral erythema Pulmonary: Clear to auscultation bilaterally, no wheezing Cardio: Regular rate and rhythm GI: Abdomen is soft to palpation : No suprapubic tenderness, mild right flank tenderness to palpation MSK: No evidence of trauma or malformation of the extremities, no edema Skin: No evidence of rash Neuro: Alert, no focal deficits Psychiatric: Cooperative INDEPENDENT INTERPRETATIONS: laboratory monitor: (As interpreted by myself): - An order was placed for continuous cardiac monitoring - Patient was noted to be in sinus rhythm with a rate of 70 Interventions provided in ED: - IV ceftriaxone Medical Decision Making: IV was established and lab work obtained, patient was placed on night monitor. Lab work shows no leukocytosis, hemoglobin is normal, platelet count is normal, CMP does not show any evidence of any critical findings, renal function is normal. Urinalysis shows trace blood, 1+ leukocyte esterase and pyuria. Will send for culture and the patient was treated prophylactically with ceftriaxone. CT imaging of the abdomen pelvis shows evidence of an obstructing 9 mm kidney stone in the right ureter. I discussed the patient's presentation with her urologist, Dr. Shaw, he is in agreement to perform lithotripsy while the patient is admitted. Patient stated her preference for admission. Case was then discussed with hospitalist, Dr. Aguilar, the patient was placed for admission in stable condition. Patient declined analgesia while here in the ED, stated that her pain was intermittent in nature. Consultants/Discussions held with other healthcare providers: - Urology, Dr. Shaw - Hospitalist, Dr. Aguilar Disposition discussion held by myself with: - Patient Diagnosis: 1. Kidney stone, acute, right-sided, with hydronephrosis 2. UTI, acute 3. Right flank pain, acute Disposition: Admission Eros Judge DO Emergency Medicine Past Med/Surg History Problem List (Updated 03/13/25 @ 11:40 by Eros Judge DO) Kidney stone on right side (Acute) Hydronephrosis Right ureteral calculus Nephrolithiasis (Acute) CMC arthritis, thumb, degenerative Trigger finger Encounter for pre-operative examination (Acute) Medical History Cardiac murmur "MILD" Environmental and seasonal allergies History of asthma hx allergy induced asthma - no issues since. resolved Hx of cervical cancer surgical intervention Hyperlipemia Osteoarthritis Pre-diabetes Renal calculi UTI due to extended-spectrum beta lactamase (ESBL) producing Escherichia coli during hospitalization at [facility] beginning of December 2024, treated with IV abx - has a UA pending as of 01/07/25. Surgical History H/O: hysterectomy SUDARSHAN with unilateral SO History of dilatation and curettage History of tooth extraction History of total knee replacement RT/LEFT Hx of LASIK S/P tendon repair right distal tendon reattachment Family History Father Family history of diabetes mellitus Other No family history of adverse response to anesthesia Social History Smoking Status: Former smoker Tobacco Type: Cigarettes Second Hand Exposure: No; Do You Dip or Chew Tobacco: No; Hx Alcohol Use: No Hx Substance Use: No Preferred Language: Danish Communication Ability: Effective Director Information Required: No Beliefs That Will Affect Care: None Current Living Situation: Family Feels Safe at Home: Yes Assistive Devices: Glasses Allergies Allergies Allergy/AdvReac Type Severity Reaction Status Date / Time No Known Allergies Allergy Verified 03/13/25 11:25 Home Meds Home Medications Medication Instructions Recorded Confirmed atorvastatin 20 mg tablet 20 mg PO HS 12/27/24 03/13/25 metformin 500 mg tablet 500 mg PO BIDWMEAL 12/27/24 03/13/25 cholecalciferol (vitamin D3) 25 25 mcg PO QAM 01/07/25 03/13/25 mcg (1,000 unit) tablet (Vitamin D3) meloxicam 15 mg tablet 15 mg PO DAILY 03/13/25 03/13/25 Previous Rx's Medication Instructions Recorded nitrofurantoin 100 mg PO Q12H 5 days #10 caps 03/11/25 monohydrate/macrocrystals 100 mg capsule (Macrobid) Results & Data (ED) Vital Signs Vital Signs - 24 hr 03/13/25 09:41 03/13/25 10:48 Temperature 36.4 C L Temperature Source Oral Pulse Rate 74 Pulse Rate [Right Finger] 68 Respiratory Rate 20 14 Respiratory Effort / Characteristics Non-Labored Spontaneous Non-Labored Spontaneous Respiratory Depth Normal Normal Respiratory Pattern Regular Blood Pressure 131/78 Blood Pressure [Right Arm] 138/66 Blood Pressure Mean 95 Blood Pressure Mean [Right Arm] 90 Pulse Oximetry 98 95 Oxygen Delivery Method Room Air Room Air Sepsis Recent Fever Within 48 Hours No Sepsis New/Unexplained Change in Mental Status N/A Sepsis Action Taken by Nursing No Action Required Laboratory Data 03/13/25 10:05 03/13/25 10:05 Lab Results 03/13/25 03/13/25 Range/Units 10:05 10:08 WBC 7.90 (4.8-10.8) K/ul RBC 4.47 (4.20-5.40) M/uL Hgb 13.4 (12.0-16.0) g/dl Hct 40.4 (37.0-47.0) % MCV 90.4 (80.0-100.0) fL MCH 30.0 (25.0-34.0) pg MCHC 33.2 (32.0-36.0) g/dL RDW Std Deviation 46.5 H (36.4-46.3) fL RDW Coeff of Remberto 14.1 (11.5-14.5) % Plt Count 252 (130-400) K/uL MPV 10.1 (9.4-12.4) fL Immature Gran % (Auto) 0.4 % Neut % (Auto) 66.7 % Lymph % (Auto) 16.3 % Mckean % (Auto) 10.0 % Eos % (Auto) 6.1 % Baso % (Auto) 0.5 % Neut # (Auto) 5.27 (1.40-6.50) K/uL Lymph # (Auto) 1.29 (1.20-3.40) K/uL Mckean # (Auto) 0.79 H (0.11-0.59) K/uL Eos # (Auto) 0.48 (0.00-0.50) K/uL Baso # (Auto) 0.04 (0.00-0.20) K/uL Immature Gran # (Auto) 0.03 (0.01-0.20) K/uL Sodium 138 (136-145) mmol/L Potassium 3.9 (3.5-5.1) mmol/L Chloride 106 (98-107) mmol/L Carbon Dioxide 24 (21-32) mmol/L Anion Gap 8 (3-11) BUN 13 (6-23) mg/dl Creatinine 0.68 (0.6-1.2) mg/dl Est Cr Clr Drug Dosing 68.1 ml/min eGFR 91.33 BUN/Creatinine Ratio 19.1 (10-20) Glucose 117 H (70-99(Fasting)) mg/dl Calcium 9.9 (8.6-10.3) mg/dl Total Bilirubin 0.5 (0.2-1.0) mg/dl AST 17 (13-39) U/L ALT 19 (7-52) U/L Alkaline Phosphatase 77 (34-104) U/L Total Protein 7.0 (6.0-8.3) gm/dl Albumin 4.3 (3.4-5.0) gm/dl Globulin 2.7 (2.5-4.0) gm/dl Albumin/Globulin Ratio 1.6 (0.9-2) Lipase 41 (11-82) U/L Urine Color Yellow Urine Appearance Clear (Clear) Urine pH 5.5 (4.5-7.5) Ur Specific Union 1.010 (1.000-1.030) Urine Protein Negative (Negative) Urine Glucose (UA) Negative (Negative) Urine Ketones Negative (Negative) Urine Blood Trace H (Negative) Urine Nitrite Negative (Negative) Urine Bilirubin Negative (Negative) Urine Urobilinogen Negative (Negative) Ur Leukocyte Esterase 1+ H (Negative) Urine WBC (Auto) 11-20 H (0-5) /hpf Urine RBC (Auto) 0-2 (0-2) /hpf U Hyaline Cast (Auto) 0-2 (0-2) /lpf U Epithel Cells (Auto) 6-10 H (0-2) /hpf Urine Bacteria (Auto) None Seen (None Seen) Urine Comment Imaging Data Radiologist's Impression: Abdomen/Pelvis CT 03/13/25 09:[address] WITHOUT CONTRAST CT DOSE: 1302.86 mGy.cm HISTORY: Acute right-sided flank pain R flank pain TECHNIQUE: Multiaxial CT images of the abdomen and pelvis were performed without contrast. A dose lowering technique was utilized adhering to the principles of ALARA. COMPARISON STUDY: CT 12/27/2024 FINDINGS: Extensive coronary artery calcifications. 9 mm fissural nodule within the right lung on image 20 series 3 suggestive of a benign lymph node. No pneumatosis or pneumoperitoneum. The unenhanced spleen, pancreas, gallbladder and adrenal glands are within normal limits. Unremarkable liver. There are numerous nonobstructing calculi of the kidneys measuring up to 4 mm bilaterally. Exophytic probable cyst of the lateral interpolar right kidney, 1.9 cm. Exophytic right renal cyst, 4.1 cm. Moderate right-sided hydroureteronephrosis. There are numerous calculi in the distal right ureter with approximately 5 punctate calculi. There is a 9 mm irregular obstructing calculus within the right UVJ. Atherosclerosis of the aorta. Colonic diverticulosis without acute diverticulitis. No bowel obstruction. Normal appendix. No acute fracture. IMPRESSION: 1. Moderate right-sided hydroureteronephrosis secondary to a 9 mm obstructing calculus within the right UVJ. Additionally, there are numerous additional punctate distal right ureteral calculi present. 2. Nonobstructing bilateral nephrolithiasis. 3. Incidental findings as above. ACT 112: Negative or not required by law. The above report was generated using voice recognition software. It may contain grammatical, syntax or spelling errors. Electronically signed by: Hu Hassan M.D. 03/13/2025 10:57 AM Discharge Plan Visit Data Chief Complaint: Kidney Stone Stated Complaint: KIDNEY STONES (RIGHT SIDE) ED Provider: Eros Judge Discharge Problem: Kidney stone on right side Patient Disposition: Admitted As Inpatient Condition: Fair Forms Stand Alone Forms: [facility] Prescriptions Prescriptions: No Action nitrofurantoin monohyd/m-cryst [Macrobid] 100 mg capsule 100 mg PO Q12H 5 Days Qty: 10 0RF Rx Instructions: must administer with a meal/food. Start Date 03/11/25 x5 day supply metformin 500 mg Tablet 500 mg PO BIDWMEAL atorvastatin 20 mg Tablet 20 mg PO HS cholecalciferol (vitamin D3) [Vitamin D3] 25 mcg (1,000 unit) Tablet 25 mcg PO QAM meloxicam 15 mg tablet 15 mg PO DAILY Referrals Referrals: Krystal Fuentes MD [Primary Care Provider] -
[2025-03-13 10:24] LABS: Basophils # (auto) 0.04 K/uL (0.00-0.20); Basophils % (auto) 0.5 %; Eosinophils # (auto) 0.48 K/uL (0.00-0.50); Eosinophils % (auto) 6.1 %; Hematocrit (blood only) 40.4 % (37.0-47.0); Hemoglobin 13.4 g/dl (12.0-16.0); Immature Granulocytes # (auto) 0.03 K/uL (0.01-0.20); Immature Granulocytes % (auto) 0.4 %; Lymphocytes # (auto) 1.29 K/uL (1.20-3.40); Lymphocytes % (auto) 16.3 %; Mean Corpuscular Hgb Conc 33.2 g/dL (32.0-36.0); Mean Corpuscular Volume 90.4 fL (80.0-100.0); Mean Platelet Volume 10.1 fL (9.4-12.4); Monocytes # (auto) 0.79 K/uL (0.11-0.59); Neutrophils # (auto) 5.27 K/uL (1.40-6.50); Neutrophils % (auto) 66.7 %; Platelet Count 252 K/uL (130-400); RDW Coefficient of Variation 14.1 % (11.5-14.5); RDW Standard Deviation 46.5 fL (36.4-46.3); Red Blood Count 4.47 M/uL (4.20-5.40)
[2025-03-13 10:29] LABS: Appearance Urine Clear (Clear); Bacteria Urine Automated None Seen (None Seen); Bilirubin Urine Negative (Negative); Blood Urine Trace (Negative); Cast Urine Automated 0-2 /lpf (0-2); Color Urine Yellow; Glucose Urine UA Negative (Negative); Ketones Urine Negative (Negative); Leukocyte Esterase Urine 1+ (Negative); Nitrite Urine Negative (Negative); Protein Urine Negative (Negative); RBC Urine Automated 0-2 /hpf (0-2); Urobilinogen Urine Negative (Negative); pH Urine 5.5 (4.5-7.5)
[2025-03-13 10:44] LABS: Albumin Globulin Ratio 1.6 (0.9-2); Albumin Level 4.3 gm/dl (3.4-5.0); BUN Creatinine Ratio 19.1 (10-20); Bilirubin,Total 0.5 mg/dl (0.2-1.0); Calcium 9.9 mg/dl (8.6-10.3); Creatinine Clr Calc Pharmacy 68.1 ml/min; Globulin 2.7 gm/dl (2.5-4.0); Potassium 3.9 mmol/L (3.5-5.1)
--- NOTE | 2025-03-13 10:59 | CT Scan Report ---
ABDOMEN AND PELVIS CT WITHOUT CONTRAST CT DOSE: 1302.86 mGy.cm HISTORY: Acute right-sided flank pain R flank pain TECHNIQUE: Multiaxial CT images of the abdomen and pelvis were performed without contrast. A dose lo wering technique was utilized adhering to the principles of ALARA. COMPARISON STUDY: CT 12/27/2024 FINDINGS: Extensive coronary artery calcifications. 9 mm fissural nodule within the right lung on allegra ge 20 series 3 suggestive of a benign lymph node. No pneumatosis or pneumoperitoneum. The unenhanced spleen, pancreas, gallbladder and adrenal glands are within normal limits. Unremarkable liver. There are numerous nonobstructing calculi of the kidneys measuring up to 4 mm bilaterally. Exophytic probable cyst of the lateral interpolar right kidney, 1.9 cm. Exophytic right renal cyst, 4.1 cm. Mod erate right-sided hydroureteronephrosis. There are numerous calculi in the distal right ureter with a pproximately 5 punctate calculi. There is a 9 mm irregular obstructing calculus within the right UVJ. Atherosclerosis of the aorta. Colonic diverticulosis without acute diverticulitis. No bowel obstruct ion. Normal appendix. No acute fracture. IMPRESSION: 1. Moderate right-sided hydroureteronephrosis secondary to a 9 mm obstructing calculus within the rig ht UVJ. Additionally, there are numerous additional punctate distal right ureteral calculi present. 2. Nonobstructing bilateral nephrolithiasis. 3. Incidental findings as above. ACT 112: Negative or not required by law. The above report was generated using voice recognition software. It may contain grammatical, syntax o r spelling errors. Electronically signed by: Hu Hassan M.D. 03/13/2025 10:57 AM
--- NOTE | 2025-03-13 11:36 | Urology Consultation ---
Date of Consultation March 13, 2025 Assessment & Plan (1) Right ureteral calculus: (2) Nephrolithiasis: (3) Hydronephrosis: Plan Well-known patient presenting to ER with new onset of severe right flank pain coming in waves causing significant and severe bother. Patient has extensive history of stone disease. Had previously undergone treatment of left-sided stones most recently in December 2024. Patient had significant bilateral stone disease prior to the intervention on the left. Had been dealing with obstructive issues on left and worsening problems. Patient's new issues have been worsening over the last day or 2. Now having severe major episodes of pain. Is only partially responding to as needed pain medication. Was evaluated in the ER. Does not have severe fever or major severe nausea or vomiting. Does have generalized abdominal pain and discomfort as well as significant flank pain and discomfort. Comes in waves and goes down to the groin. White count was 7.9. Creatinine was 0.6. Patient independently assessed, examined, interviewed, and evaluated. Patient's vitals and labs were all reviewed. Hemoglobin 13.4. UA showed protein and white cells. Pertinent values in the HPI and plan section. Vitals have been stable with blood pressure 138/66 pulse 68 respirations 14 temperature 36.4 and oxygen saturation 95% on room air. Imaging was reviewed interpreted by myself. Patient was found to have a large approximately 9 mm stone in the distal ureter. Does appear to be somewhat irregular shaped possibly teardrop shaped versus 2 stones in close proximity. Does appear to cause significant hydronephrosis and obstruction on the right. Perinephric stranding as well. Previous large stone burden on left side does appear to be significant reduced. Agree with read. Vitals were reviewed. Discussed findings extensively with patient and family. Reviewed with consulting physicians/team. Patient's complicated medical and surgical history was reviewed and summarized above. Patient's surgical, medical, social, and family history were all reviewed with pertinent values as above. Discussed patient's current diagnosis as well as concerns and issues. Reviewed different options moving forward. Discussed potential risks and benefits as well as possible options and concerns. Discussed options for conservative measure and maximum expulsion medical therapy and symptom controlled. Discussed ESWL. Discussed Ureteroscopy with extraction and/or laser lithotripsy. Risks and benefits were discussed. Stone free rates were also discussed as well as possibility of multiple procedures. Ureteral stents were discussed as well as post-operative issues and pain management. All questions were answered. Reviewed potential surgical options and interventions. Discussed potential issues and concerns related to intervention. Risk and benefits were discussed extensively with patient and any available family. Discussed potential risks related to anesthesia. Discussed risks of bleeding infection and injury. Discussed options for observation especially with severe pain only partially responding to pain medication. Due to large size of stone may not be amendable to passage. Did discuss trial of maximum expulsion therapy with medications and symptom control medications as well as IV and oral hydration. Discussed different options moving forward. Patient was agreeable for observation. Will likely be admitted with the hospitalist team. Will plan to continue to monitor and reevaluate patient. Will have patient n.p.o. at midnight. Did discuss possible options to move forward with stent p lacement for stone treatment depending on severity of issues if patient develops severe fever severe RAPHAEL severe intractable nausea and vomiting or pain would consider possible early intervention with stent placement. Otherwise we will plan to reevaluate and monitor with possible intervention in the coming days. History of Present Illness History of Present Illness New consultation for patient with stone, discomfort, obstruction, and ill feelings. Well-known patient with significant history of stones. Had undergone treatment of left-sided stones in December 2024. Patient developed sudden onset of pain into flank going down and radiating into groin and back in waves comes and goes. Pain was now occurring on the right side. Can be severe at times. Discussed and reviewed patient's family history for any history of stone disease. Also, discussed patient's medical surgery history especially related to any history of urinary issues or stone disease. Patient is not having major episodes of fever. Was having significant and bothersome pain. Pain was only partially responding to as needed medications. Has previously had significant issues with stones and infection. No significant RAPHAEL. No severe nausea or vomiting. Patient was admitted and is undergoing observation. Allergies Allergy/AdvReac Type Severity Reaction Status Date / Time No Known Allergies Allergy Verified 03/13/25 11:25 Home Medications Medication Instructions Recorded Confirmed Type atorvastatin 20 mg tablet 20 mg PO HS 12/27/24 03/13/25 History metformin 500 mg tablet 500 mg PO BIDWMEAL 12/27/24 03/13/25 History cholecalciferol (vitamin D3) 25 25 mcg PO QAM 01/07/25 03/13/25 History mcg (1,000 unit) tablet (Vitamin D3) nitrofurantoin 100 mg PO Q12H 5 days #10 caps 03/11/25 03/13/25 Rx monohydrate/macrocrystals 100 mg capsule (Macrobid) meloxicam 15 mg tablet 15 mg PO DAILY 03/13/25 03/13/25 History Patient History Medical History History of asthma hx allergy induced asthma - no issues since. resolved Hyperlipemia Pre-diabetes Renal calculi Hx of cervical cancer surgical intervention Osteoarthritis Cardiac murmur "MILD" Environmental and seasonal allergies Surgical History History of dilatation and curettage S/P tendon repair right distal tendon reattachment History of total knee replacement RT/LEFT H/O: hysterectomy SUDARSHAN with unilateral SO History of tooth extraction Hx of LASIK Family History Father Family history of diabetes mellitus Other No family history of adverse response to anesthesia Social History Smoking Status: Former smoker Tobacco Type: Cigarettes Second Hand Exposure: No; Do You Dip or Chew Tobacco: No; Hx Alcohol Use: No Hx Substance Use: No Preferred Language: Serbian Communication Ability: Effective Production Supv Required: No Beliefs That Will Affect Care: None Current Living Situation: Family Feels Safe at Home: Yes Assistive Devices: Glasses Review of Systems Review of Systems: All systems reviewed & are unremarkable except as noted in HPI & below Physical Exam Physical Exam: General: Alert and oriented x 3 in no acute distress. Patient is well nourished and well kept. HEENT: Normocephalic Atraumatic. Inspection normal. Cranial Nerves 2-12 Grossly intact. Nares are clear. Neck is supple. Normal inspection of face. Normal inspection of neck. Neurologic: No deficits on inspection. Baseline for motor function and sensory. Psychologic: Normal affect. Respiratory: Nonlabored. No use of accessory muscles. No tachypnea or dyspnea. Cardiovascular: No tachycardia Skin: [place] and Dry. No rashes or visible lesions. Extremities: Moving without issues. No motor deficits on inspection Lymphatics: No edema Abdomen: Soft Non-distended. No rebound or guarding. Results & Data Vital Signs (Past 12 Hours) Vital Signs Temp Pulse Pulse Resp BP BP Pulse Ox 03/13/25 10:48 68 14 138/66 95 03/13/25 09:41 36.4 C L 74 20 131/78 98 O2 Del Method 03/13/25 10:48 Room Air 03/13/25 09:41 Room Air PG Care Time/CCT Total # of Minutes Spent Total Time Spent with Patient: Total time spent is greater than 50% in coordination of care (as documented) at patient's floor/unit and/or counseling patient: Coding Level of Care Code 01076 INT INP/OBS CARE 3/75MIN Diagnoses Right ureteral calculus N20.1 Nephrolithiasis N20.0 Hydronephrosis N13.30
--- NOTE | 2025-03-13 11:37 | History & Physical Report ---
Date of Service March 13, 2025 Assessment & Plan (1) Kidney stone on right side: (2) Hydronephrosis: (3) Nephrolithiasis: Plan Ms Westbrook is a 74-year-old female with past med history significant for prediabetes, dyslipidemia, seasonal allergic rhinitis, prior obstructing calcium oxalate kidney stones , osteoarthrosis, bee sting induced anaphylaxis, prior ESBL infection, nephroli. Patient says she having burning micturition since early November and she is on second cycle of antibiotics. Currently on Macrobid. Burning micturition is improving. Denies any fevers. Has back pain. No hematuria. Normal bowel movements. Appetite is down lately. No nausea. No chest pain or shortness of. No headache. No runny nose or sore throat. No cough. Currently resting comfortably and hemodynamic stable. CT revealed moderate right-sided hydroureteronephrosis secondary to a 9 mm obstructing calculus within the right UVJ and nonobstructing bilateral nephrolithiasis. NPO at midnight for urological intervention. #Right UVJ obstructing calculus #right-sided hydroureteronephrosis #History of Calcium oxalate stones Previously followed nephrology continue IVF at this time consider OP nephrology follow up given continued/increase stone burden, looks like lost to f/u in 2019 #Recurrent UTI #Prior ESBL symptomatic at this time w/ dysuria, frequency Prior history of ESBL, started on Macrobid on Sunday 03/11 s/p CTX in Ed, hx of resistence, start cefepime q 8h and follow culture #Diabetes Hold metformin Sliding scale Will follow HbA1c levels and blood sugars. #Hyperlipidemia Statin DVT prophylaxis SCDs for now Disposition Med surg Full code. Admission and Anticipated Discharge Date Admission Date: Time spent evaluating patient, direct bedside care, chart review, placing orders, interpretation of diagnostic studies, discussion with consultants, patient, and family members, as well as other required patient management activities is 75 minutes. History of Present Illness Chief Complaint: Right Flank Pain Primary Care Provider: Krystal Fuentes MD Ms Westbrook is a 74 year old woman with past medical history remarkable for atrophic vaginitis, cystocele, nephrolithiasis, prediabetes, osteoarthritis who presented to [facility] ED due to right flank pain. Patient now s/p lithotripsy on 01/13/2025 of a 6 mm calculus within the left UVJ resulting in mild hydroureteronephrosis with stent removal as of 01/17/2025. Patient with history of ESBL. Patient states that she was in her usual state of health until Friday when she noted dysuria, urinary frequency, then flank pain. She denies any fever, nausea, vomiting, chest pain, palpitations, changes in bowel habits or other acute concerns. Patient called her urologist on Sunday 03/11, for which she obtained a script for macrobid. Urine culture at that time was notable for mixed january. Patient then notes increasing pain prompting her presentation to the ED. She denies EtOH use, reports remote tobacco use, and denies any illicit substance use. In the ED, vitals were notable for BP of 120-140s, HR of 60s-70s and O2 sat of mid-high 90s on room air Labs are without leukocytosis nor RAPHAEL; UA with trace blood, + LE, negative bacteria and negative nitrite Imaging revealed moderate right-sided hydroureteronephrosis secondary to a 9 mm obstructing calculus within the right UVJ ED interventions: CTX Consultants: Urology Patient to be admitted to med surg for further evaluation and management of right sided obstructing calculus Allergies Allergy/AdvReac Type Severity Reaction Status Date / Time No Known Allergies Allergy Verified 03/13/25 11:25 Home Medications Medication Instructions Recorded Confirmed Type atorvastatin 20 mg tablet 20 mg PO HS 12/27/24 03/13/25 History metformin 500 mg tablet 500 mg PO BIDWMEAL 12/27/24 03/13/25 History cholecalciferol (vitamin D3) 25 25 mcg PO QAM 01/07/25 03/13/25 History mcg (1,000 unit) tablet (Vitamin D3) nitrofurantoin 100 mg PO Q12H 5 days #10 caps 03/11/25 03/13/25 Rx monohydrate/macrocrystals 100 mg capsule (Macrobid) meloxicam 15 mg tablet 15 mg PO DAILY 03/13/25 03/13/25 History Past Med/Surg History Problem List Kidney stone on right side (Acute) Hydronephrosis Right ureteral calculus Nephrolithiasis (Acute) CMC arthritis, thumb, degenerative Trigger finger Encounter for pre-operative examination (Acute) Medical History History of asthma hx allergy induced asthma - no issues since. resolved Hyperlipemia Pre-diabetes Renal calculi Hx of cervical cancer surgical intervention Osteoarthritis Cardiac murmur "MILD" Environmental and seasonal allergies Surgical History History of dilatation and curettage S/P tendon repair right distal tendon reattachment History of total knee replacement RT/LEFT H/O: hysterectomy SUDARSHAN with unilateral SO History of tooth extraction Hx of LASIK Family History Father Family history of diabetes mellitus Other No family history of adverse response to anesthesia Social History Smoking Status: Never smoker Tobacco Type: Cigarettes Second Hand Exposure: No; Do You Dip or Chew Tobacco: No; Tobacco Cessation Education Requested by Patient: No Hx Alcohol Use: No Hx Substance Use: No Preferred Language: Maori Communication Ability: Effective Medical Device Assembler Required: No Beliefs That Will Affect Care: None Current Living Situation: Family Other Information That Helps Us Care for You: No Feels Safe at Home: Yes Safety Concerns: Feels Safe At This Time Assistive Devices: Glasses Review of Systems Review of Systems: Constitutional: (-) fever/chills, (-) recent loss of weight, (-) appetite changes, (-) night sweats. Head: (-) headache, (-) dizziness. Eye: (-) blurring of vision, (-) double vision, (-) redness. Ear: (-) hearing loss, (-) discharge, (-) vertigo Nose: (-) discharge, (-) bleeding, (-) congestion, (-) post nasal drip. Throat: (-) sore throat, (-) hoarseness of voice, (-) odynophagia. Cardiovascular: (-) chest pain, (-) palpitations, (-) syncope, (-) orthopnea, (- ) PND, (-) leg swelling. Respiratory: (-) shortness of breath, (-) cough, (-) wheezing, (-) hemoptysis. Neuro: (-) weakness in extremities, (-) numbness, (-) tingling, (-) tremor. Gastrointestinal: (-) belly pain, (-) belly distension, (-) nausea, (-) vomiting, (-) diarrhea, (-) constipation, Genitourinary: (-) hematuria, (++) dysuria, (-) polyuria, (++) hesitancy, (++) frequency, (-) urinary incontinence. Musculoskeletal: (-) myalgia, (-) arthralgia. Skin: (-) rashes. Endocrine: (-) heat/cold intolerance. Psychiatry: (-) depression, (-) hallucination. Physical Exam Physical Exam: GENERAL APPEARANCE: AxOx4, generally well-appearing F, no acute distress but some mild discomfort with repositioning HEENT: NC, AT. MMM. EOMI, clear conjunctiva, oropharynx clear. NECK: Supple without lymphadenopathy. No stiffness or restricted ROM. HEART: Normal rate and regular rhythm, normal S1/S1, no m/r/g LUNGS: CTAB, moving air well. No crackles or wheezes are heard. ABDOMEN: Soft, nontender, nondistended with good bowel sounds heard. BACK: ++ R CVAT, no obvious deformity. EXTREMITIES: Without cyanosis, clubbing or edema. NEUROLOGICAL: Grossly nonfocal. Alert and oriented, moving all 4 extremities. CN not formally tested but appear grossly intact. Observed to ambulate with normal gait. Skin: Warm and dry without any rash. Results & Data Results & Data Vital Signs (Past 12 Hours) Vital Signs Temp Pulse Pulse Resp BP BP Pulse Ox 03/13/25 10:48 68 14 138/66 95 03/13/25 09:41 36.4 C L 74 20 131/78 98 O2 Del Method 03/13/25 10:48 Room Air 03/13/25 09:41 Room Air Laboratory Results Short CBC 03/13/25 Range/Units 10:05 WBC 7.90 (4.8-10.8) K/ul Hgb 13.4 (12.0-16.0) g/dl Hct 40.4 (37.0-47.0) % Plt Count 252 (130-400) K/uL BMP 03/13/25 10:05 Sodium 138 Potassium 3.9 Chloride 106 Carbon Dioxide 24 BUN 13 Creatinine 0.68 Glucose 117 H Calcium 9.9 Liver Function 03/13/25 Range/Units 10:05 Total Bilirubin 0.5 (0.2-1.0) mg/dl AST 17 (13-39) U/L ALT 19 (7-52) U/L Alkaline Phosphatase 77 (34-104) U/L Albumin 4.3 (3.4-5.0) gm/dl Urine 03/13/25 Range/Units 10:08 Urine Color Yellow Urine Appearance Clear (Clear) Urine pH 5.5 (4.5-7.5) Ur Specific [place] 1.010 (1.000-1.030) Urine Protein Negative (Negative) Urine Glucose (UA) Negative (Negative) Diagnostic Findings HISTORY: Acute right-sided flank pain R flank pain TECHNIQUE: Multiaxial CT images of the abdomen and pelvis were performed without contrast. A dose lowering technique was utilized adhering to the principles of ALARA. COMPARISON STUDY: CT 12/27/2024 FINDINGS: Extensive coronary artery calcifications. 9 mm fissural nodule within the right lung on image 20 series 3 suggestive of a benign lymph node. No pneumatosis or pneumoperitoneum. The unenhanced spleen, pancreas, gallbladder and adrenal glands are within normal limits. Unremarkable liver. There are numerous nonobstructing calculi of the kidneys measuring up to 4 mm bilaterally. Exophytic probable cyst of the lateral interpolar right kidney, 1.9 cm. Exophytic right renal cyst, 4.1 cm. Moderate right-sided hydroureteronephrosis. There are numerous calculi in the distal right ureter with approximately 5 punctate calculi. There is a 9 mm irregular obstructing mikki culus within the right UVJ. Atherosclerosis of the aorta. Colonic diverticulosis without acute diverticulitis. No bowel obstruction. Normal appendix. No acute fracture. IMPRESSION: 1. Moderate right-sided hydroureteronephrosis secondary to a 9 mm obstructing calculus within the right UVJ. Additionally, there are numerous additional punctate distal right ureteral calculi present. 2. Nonobstructing bilateral nephrolithiasis. 3. Incidental findings as above. ACT 112: Negative or not required by law. Medications Administered Home Medications Medication Instructions Recorded Confirmed Last Taken atorvastatin 20 mg tablet 20 mg PO HS 12/27/24 03/13/25 03/12/25 metformin 500 mg tablet 500 mg PO BIDWMEAL 12/27/24 03/13/25 03/13/25 cholecalciferol (vitamin D3) 25 25 mcg PO QAM 01/07/25 03/13/25 03/12/25 mcg (1,000 unit) tablet (Vitamin D3) nitrofurantoin 100 mg PO Q12H 5 days #10 caps 03/11/25 03/13/25 03/13/25 monohydrate/macrocrystals 100 mg capsule (Macrobid) meloxicam 15 mg tablet 15 mg PO DAILY 03/13/25 03/13/25 03/12/25
[2025-03-13] MEDS: cefTRIAXone SODIUM 2,000 MG/50 ML BAG IV STA (12:22)
[2025-03-13] MEDS: TAMSULOSIN HCL 0.4 MG CAP PO ONE (12:22)
[2025-03-13] MEDS: KETOROLAC TROMETHAMINE 15 MG/ML VIAL IV ONE (13:09)
[2025-03-13] MEDS ORDERED: GLUCOSE 40% GEL 15 GM TUBE PO PRN (13:36)
[2025-03-13] MEDS ORDERED: GLUCAGON FOR INJ 1 MG VIAL SQ PRN (13:36)
[2025-03-13] MEDS ORDERED: CARBOHYDRATES FOR HYPOGLYCEMIA PO PRN (13:36)
[2025-03-13] MEDS ORDERED: DEXTROSE 50% 50 ML SYRINGE IV PRN (13:36)
[2025-03-13] MEDS ORDERED: POLYETHYLENE (MIRALAX) 17 GM PACK PO PRN (13:36)
[2025-03-13] MEDS ORDERED: ONDANSETRON INJ 2 MG/ML 2 ML VIAL IV PRN (13:36)
[2025-03-13] MEDS ORDERED: GLUCOSE 10 TAB/TUBE PO PRN (13:36)
[2025-03-13] MEDS: SODIUM CHLORIDE 0.9% 1,000 ML IV SCH (14:20)
[2025-03-13] MEDS: CEFEPIME 2000MG 2,000 MG/20 ML SYR IV SCH (14:20)
[2025-03-13] MEDS ORDERED: HYDROmorphone INJ 0.5 MG/0.5 ML SYR IV PRN ×2 (15:30→15:39)
[2025-03-13] MEDS: INSULIN ASPART PER UNIT CHARGE SC SCH (17:23)
[2025-03-13] MEDS ORDERED: KETOROLAC TROMETHAMINE 15 MG/ML VIAL IV PRN (19:00)
[2025-03-13] MEDS: oxyCODONE HCL IR 5 MG TAB (IMMEDIATE RELEASE) PO PRN (20:40)
[2025-03-13] MEDS: ATORVASTATIN 20 MG TAB PO SCH (20:40)
[2025-03-14] MEDS: INSULIN ASPART PER UNIT CHARGE SC SCH ×2 (05:59→21:09)
[2025-03-14 06:45] LABS: Hematocrit (blood only) 42.2 % (37.0-47.0); Hemoglobin 13.7 g/dl (12.0-16.0); Mean Corpuscular Hemoglobin 29.8 pg (25.0-34.0); Mean Corpuscular Hgb Conc 32.5 g/dL (32.0-36.0); Mean Corpuscular Volume 91.9 fL (80.0-100.0); Mean Platelet Volume 10.1 fL (9.4-12.4); Platelet Count 226 K/uL (130-400); RDW Coefficient of Variation 14.4 % (11.5-14.5); RDW Standard Deviation 48.2 fL (36.4-46.3); Red Blood Count 4.59 M/uL (4.20-5.40); White Blood Count 6.58 K/ul (4.8-10.8)
[2025-03-14 07:01] LABS: BUN Creatinine Ratio 21.2 (10-20); Calcium 9.6 mg/dl (8.6-10.3); Creatinine Clr Calc Pharmacy 70.2 ml/min; Magnesium 2.3 mg/dl (1.7-2.4); Phosphorus 3.2 mg/dl (2.5-4.9); Potassium 4.1 mmol/L (3.5-5.1)
[2025-03-14] MEDS: TAMSULOSIN HCL 0.4 MG CAP PO SCH (08:07)
[2025-03-14] MEDS: CHOLECALCIFEROL 25 MCG (1000 UNITS) TAB PO SCH (08:07)
--- NOTE | 2025-03-14 09:08 | Urology Progress Note ---
Date of Service March 14, 2025 Assessment & Plan (1) Right ureteral calculus: (2) Hydronephrosis: Plan: Follow-up of the large obstructing right distal ureteral calculus Patient afebrile, hemodynamically stable Labs today reviewedcreatinine 0.06, WBC 6.58, hemoglobin 13.7 Urine and blood cultures are pending Plan for cystoscopy and right ureteral stent placement today as previously discussed Patient is appropriately n.p.o. Continue with cefepime preoperatively Follow cultures Continue supportive care, pain management, and medical management per hospital medicine service Attending note: Patient independently assessed, examined, interviewed, and evaluated. Agree with note as above. Patient's vitals and labs were all reviewed. Pertinent values in the HPI and plan section. Imaging was reviewed interpreted by myself. Agree with read. Vitals were reviewed. Discussed findings extensively with patient and family. Reviewed with nurse practitioner as well as consulting physicians/team. Patient's complicated medical and surgical history was reviewed and summarized above. Patient's surgical, medical, social, and family history were all reviewed with pertinent values as above. Discussed patient's current diagnosis as well as concerns and issues. Reviewed different options moving forward. Discussed potential risks and benefits as well as possible options and concerns. Reviewed potential surgical options and interventions. Discussed potential issues and concerns related to intervention. Risk and benefits were discussed extensively with patient and any available family. Discussed potential risks related to anesthesia. Discussed risks of bleeding infection and injury. Risks and benefits discussed at length for procedure. These include bleeding, infection, injury to surrounding tissues or organs, and risks associated with anesthesia. Patient states understanding and agrees to proceed. Will sign consent and proceed. Plan for cystoscopy with right ureteroscopy and stone treatment. Admission and Anticipated Discharge Date Admission Date: March 13, 2025 Subjective Patient seen and examined. She is awake and resting in bed. Currently comfortable. Denies nausea, vomiting, fever or chills. She is currently NPO. Review of Systems Constitutional: as per Subjective / HPI Genitourinary: as per Subjective / HPI Physical Exam Constitutional: well developed and well nourished; no acute distress Respiratory: normal respiratory effort; no respiratory distress and no labored breathing Gastrointestinal (Abdomen): Inspection/Auscultation: abdomen normal to inspection Musculoskeletal: Head/Neck/Chest: normocephalic Neurologic: moves all extremities and awake Psychiatric: Orientation: alert and oriented x 3 Results & Data Vital Signs (Past 12 Hours) Vital Signs Temp Pulse Resp BP Pulse Ox O2 Del Method 03/14/25 07:48 36.8 C 55 L 18 130/77 95 Room Air PG Care Time/CCT Total # of Minutes Spent Total Time Spent with Patient: Total time spent is greater than 50% in coordination of care (as documented) at patient's floor/unit and/or counseling patient: Coding Level of Care Code 57978 SUB INP/OBS CARE 3/50MIN Diagnoses Right ureteral calculus N20.1 Hydronephrosis N13.30
--- NOTE | 2025-03-14 16:07 | Anesthesiology Consultation ---
Date of Service March 14, 2025 Assessment & Plan (1) Encounter for pre-operative examination: Chart Review Chart Review: Acceptable Risk for Surgery and Patient NOT seen in Pre Admission Testing Consults Requested none History Surgery Operation Date: 03/14/25 07:00 Proposed Procedures p Cystoscopy, Ureteroscopy, Laser Lithotripsy, Stent - Right - Nael Shaw, DO Height/Weight Height: 5 ft 1 in Weight: 76.9 kg Allergies Allergy/AdvReac Type Severity Reaction Status Date / Time No Known Allergies Allergy Verified 03/13/25 11:25 Medications Home Medications Medication Instructions Recorded Confirmed Last Taken atorvastatin 20 mg tablet 20 mg PO HS 12/27/24 03/13/25 03/12/25 metformin 500 mg tablet 500 mg PO BIDWMEAL 12/27/24 03/13/25 03/13/25 cholecalciferol (vitamin D3) 25 25 mcg PO QAM 01/07/25 03/13/25 03/12/25 mcg (1,000 unit) tablet (Vitamin D3) nitrofurantoin 100 mg PO Q12H 5 days #10 caps 03/11/25 03/13/25 03/13/25 monohydrate/macrocrystals 100 mg capsule (Macrobid) meloxicam 15 mg tablet 15 mg PO DAILY 03/13/25 03/13/25 03/12/25 Active Medications Generic Name Dose Route Start Last Admin Trade Name Freq PRN Reason Stop Dose Admin Atorvastatin Calcium 20 mg 03/13/25 21:00 03/13/25 20:40 Atorvastatin 20 Mg Tab PO 04/12/25 20:59 20 mg HS DARSHAN Administration Cefepime HCl 2,000 mg in 20 mls @ 5 mls/min 03/13/25 14:00 03/14/25 14:53 Maxipime 2000mg IV 03/15/25 13:59 5 mls/min Q8H DARSHAN Administration Protocol Sodium Chloride 1,000 mls @ 80 mls/hr 03/13/25 12:15 03/14/25 14:53 Nss IV 03/16/25 12:14 80 mls/hr .[id number] DARSHAN Administration Insulin Aspart 0 units 03/14/25 06:00 03/14/25 11:38 Insulin Aspart Per Unit Charge SC 04/13/25 05:59 Not Given Q6 DARSHAN Oxycodone HCl 5 mg 03/13/25 15:39 03/13/25 20:40 Oxycodone Hcl Ir 5 Mg Tab (Immediate Release) PO 03/27/25 15:38 5 mg Q4H PRN Administration Moderate Pain (Scale 4, 5, 6) Tamsulosin HCl 0.4 mg 03/14/25 09:00 03/14/25 08:07 Tamsulosin Hcl 0.4 Mg Cap PO 04/13/25 08:59 0.4 mg QAM DARSHAN Administration Vitamin D 25 mcg 03/14/25 09:00 03/14/25 08:07 Cholecalciferol 25 Mcg (1000 Units) Tab PO 04/13/25 08:59 25 mcg QAM DARSHAN Administration Past Medical History Medical History History of asthma hx allergy induced asthma - no issues since. resolved Hyperlipemia Pre-diabetes Renal calculi Hx of cervical cancer surgical intervention Osteoarthritis Cardiac murmur "MILD" Environmental and seasonal allergies Past Family History Family History Father Family history of diabetes mellitus Other No family history of adverse response to anesthesia Past Surgical History Surgical History History of dilatation and curettage S/P tendon repair right distal tendon reattachment History of total knee replacement RT/LEFT H/O: hysterectomy SUDARSHAN with unilateral SO History of tooth extraction Hx of LASIK Social History Smoking Status: Never smoker tobacco type: cigarettes Do You Dip or Chew Tobacco: No Hx Alcohol Use: No Hx Substance Use: No substance use type: does not use Physical Exam Vital Signs Last Vital Signs Temp 36.8 C 03/14/25 14:53 Pulse 64 03/14/25 14:53 Resp 16 03/14/25 14:53 BP 114/74 03/14/25 14:53 Pulse Ox 95 03/14/25 14:53 O2 Del Method Room Air 03/14/25 14:53 Testing Laboratory Results 03/14/25 06:18 03/14/25 06:18 Urine Color Yellow 03/13/25 10:08 Urine Appearance Clear (Clear) 03/13/25 10:08 Urine pH 5.5 (4.5-7.5) 03/13/25 10:08 Ur Specific [place] 1.010 (1.000-1.030) 03/13/25 10:08 Urine Protein Negative (Negative) 03/13/25 10:08 Urine Glucose (UA) Negative (Negative) 03/13/25 10:08 Urine Ketones Negative (Negative) 03/13/25 10:08 Urine Nitrite Negative (Negative) 03/13/25 10:08 Ur Leukocyte Esterase 1+ (Negative) H 03/13/25 10:08 Urine WBC (Auto) 11-20 /hpf (0-5) H 03/13/25 10:08 Urine RBC (Auto) 0-2 /hpf (0-2) 03/13/25 10:08 U Hyaline Cast (Auto) 0-2 /lpf (0-2) 03/13/25 10:08 U Epithel Cells (Auto) 6-10 /hpf (0-2) H 03/13/25 10:08 Urine Bacteria (Auto) None Seen (None Seen) 03/13/25 10:08 03/13/25 11:31 Aerobic Blood Culture - Preliminary Blood No growth in Aerobic bottle after 24 hours. 03/13/25 11:31 Aerobic Blood Culture - Preliminary Blood No growth in Aerobic bottle after 24 hours. 03/13/25 10:08 Urine Culture - Preliminary Urine,Clean Catch Pin-point growth present, reincubating. 03/14/25 03/14/25 11:36 05:59 POC Glucose 99 110 H Electrocardiogram Date: 01/07/25 DICTATED BY: Hardy Novak MD Test Reason : Blood Pressure : */* mmHG Vent. Rate : 77 BPM Atrial Rate : 77 BPM P-R Int : 136 ms QRS Dur : 88 ms QT Int : 378 ms P-R-T Axes : 34 30 78 degrees QTcB Int : 427 ms Sinus rhythm with Premature atrial complexes Abnormal ECG When compared with ECG of 25-Aug-2019 09:21, Premature atrial complexes are now Present Confirmed by Hardy Novak ([id number]) on 01/07/2025 9:37:01 PM Chest X-Ray Date: 01/07/25 HISTORY: Preoperative evaluation. TECHNIQUE: PA and lateral views of the chest. COMPARISON: None. FINDINGS: No focal lung consolidation. No pneumothorax or pleural effusion. Normal heart size. Left-sided aortic arch. Midline trachea.No acute osseous abnormality. Mild degenerative changes of the spine. Included upper abdomen is unremarkable. IMPRESSION: No acute cardiopulmonary findings.
[2025-03-14] MEDS ORDERED: fentaNYL citrate PF 100 MCG/2 ML VIAL ONE (16:15)
[2025-03-14] MEDS ORDERED: LIDOCAINE 2% 2 ML VIAL/AMP(20MG/ML) INFIL ONE (16:15)
[2025-03-14] MEDS ORDERED: PROPOFOL IV EMULSION 10 MG/ML 20 ML VIAL IV ONE (16:15)
[2025-03-14] MEDS ORDERED: DEXAMETHASONE SOD INJ 4 MG/ML VIAL ONE (16:15)
[2025-03-14] MEDS ORDERED: ONDANSETRON INJ 2 MG/ML 2 ML VIAL ONE (16:15)
[2025-03-14] MEDS ORDERED: MIDAZOLAM HCL 1 MG/ML 2ML VIAL ONE (16:15)
--- NOTE | 2025-03-14 16:16 | Hospitalist Progress Note ---
Date of Service March 14, 2025 Assessment & Plan (1) Hydronephrosis concurrent with and due to calculi of kidney and ureter: (2) Suspected UTI: (3) Bilateral nephrolithiasis: (4) Pre-diabetes: Plan Patient 74-year-old female who presented with urinary complaints and has been on and off antibiotics. Imaging in the ED showed an obstructing 9 mm right ureteral stone with hydronephrosis. Patient to go undergo urological intervention today Continue antibiotics Monitor urine culture Anticipate discharge tomorrow provided uneventful postoperative course. Admission and Anticipated Discharge Date Admission Date: March 13, 2025 Subjective Patient feeling better this morning. Anticipating going to the operating room for urological intervention Physical Exam Physical Exam: Constitutional: Alert, nontoxic HEENT: Mucous membranes moist. Lungs: Clear to auscultation, decreased, no wheezes rales or rhonchi CV: S1-S2, regular Abdomen: Soft, nontender, nondistended Extremities: No significant edema Neuro: No focal deficits Psych: Cooperative, normal mood Results & Data Results & Data Vital Signs (Past 12 Hours) Vital Signs Temp Pulse Resp BP Pulse Ox O2 Del Method 03/14/25 14:53 36.8 C 64 16 114/74 95 Room Air 03/14/25 07:48 36.8 C 55 L 18 130/77 95 Room Air Diagnostic Findings Reviewed imaging, laboratory and diagnostic studies. Pertinent findings as below. WBCs 6.5 Hemoglobin 13.7 Electrolytes stable Creatinine 0.66 Blood cultures no growth to date Urine culture pinpoint growth
[2025-03-14] MEDS ORDERED: fentaNYL citrate PF 100 MCG/2 ML VIAL IV PRN (16:35)
[2025-03-14] MEDS ORDERED: ePHEDrine sulfate 50 MG/ML AMP IV PRN (16:35)
[2025-03-14] MEDS ORDERED: ATROPINE SULFATE 0.1 MG/ML 10ML SYR IV PRN (16:35)
[2025-03-14] MEDS ORDERED: ONDANSETRON INJ 2 MG/ML 2 ML VIAL IV PRN (16:35)
[2025-03-14] MEDS ORDERED: ePHEDrine sulfate 50 MG/ML AMP ONE (17:27)
--- NOTE | 2025-03-14 17:48 | Operative Report ---
PG Post Operative Report Pre & Post Diagnosis Operation Date: 03/14/25 07:00 Pre-Op Diagnosis: Obstructive nephrolithiasis Post-Op Diagnosis: Obstructive nephrolithiasis I identified the patient and participated in the time-out.: Yes Procedure Operation Date: 03/14/25 07:00 Actual Procedures p Cystoscopy with Right Ureteroscopy, Laser Lithotripsy, Basket Extraction of Stone, Retrograde pyelogram, and Stent Insertion - Right(Right) - Nael Shaw DO Surgeon Nael Shaw, II, DO Conveyor Operator None Estimated Blood Loss 1 Findings Consistent with Post-Op Diagnosis Ureteral Stones destroyed to dust and small fragments and larger fragments removed. Multiple small renal stones destroyed to dust and small fragments. Specimens Stone Fragments - Right ureter Drains 4.8 Fr x 24 cm Right Anesthesia Type General Complications none Disposition Disposition: Recovery Room Indications Patient with bothersome stones. Risks and benefits discussed at length. Description of Procedure Patient was consented and brought back to the operating room. Patient was placed under anesthesia in the supine position and moved to the dorsal lithotomy position. Patient was prepped and draped in the regular sterile fashion. A time out was completed. A 30degree Cystoscope was placed into the bladder and the entire bladder was examined. The UO's were identified. The UO was cannulized with a catheter and a retrograde pyelogram was completed. A wire was then placed. The Rigid ureteroscope was taken into the ureter. The stone was identified. A laser fiber was selected and the stones were pulverized to dust and small fragments. Larger fragments were grasped and removed and sent for analysis. A second wire was then placed and the rigid scope removed. The flexible scope was then taken over the second wire and advanced to the proximal ureter and renal pelvis. The entire pelvis was examined and the stones were further treated with the laser and basketed for removal. The entire area was once again examined. No residual large fragments or areas of concern were noted. The scope was slowly removed with the wire left in place. Contrast was placed through the scope for a pyelogram to assist in stent placement. The entire ureter was examined as the scope was slowly removed. No obstructions or other areas of concern were noted. With the wire in place, a 4.8 Fr Double J stent was placed. It was confirmed with fluoroscopy. With the stent in place, the bladder was emptied. The scope was removed. The patient was cleaned, aroused from anesthesia, and transferred to the pacu in stable condition having tolerated the procedure well with no complications. I was present and participated in all aspects of the procedure. The patient will be monitored in the PACU until transferred. Plan to remove stent in office in 5-7 days. I attest to the content of the Intraoperative Record and any orders documented therein. Any exceptions are noted below.
--- NOTE | 2025-03-14 18:20 | Anesthesiology Progress Note ---
Date of Service March 14, 2025 Anesthesia Post Procedure Vital Signs Vital Signs: Temp Pulse Pulse Resp BP BP Pulse Ox 03/14/25 18:15 36.5 C 80 18 143/53 H 95 03/14/25 18:05 74 12 133/66 96 03/14/25 17:55 36 C L 76 16 128/56 L 98 03/14/25 15:55 37.3 C 67 18 145/88 H 95 03/14/25 14:53 36.8 C 64 16 114/74 95 03/14/25 07:48 36.8 C 55 L 18 130/77 95 03/13/25 19:32 36.7 C 68 16 109/73 94 O2 Del Method O2 Flow Rate 03/14/25 18:15 Room Air 03/14/25 18:05 Oxymask 3 03/14/25 17:55 Oxymask 6 03/14/25 15:55 Room Air 03/14/25 14:53 Room Air 03/14/25 07:48 Room Air 03/13/25 19:32 Room Air Pain Intensity Left Flank: Pain Intensity: 7 Transfer of Care Handoff Completed per policy Notes Mental Status: alert / awake / arousable Patient Amnestic to Procedure: Yes Nausea / Vomiting: adequately controlled Pain: adequately controlled Airway Patency, RR, SpO2: stable & adequate BP & HR: stable & adequate Hydration State: stable & adequate Anesthetic Complications: no major complications apparent and Pt Satisfied with anesthetic care
[2025-03-14 18:43] VITALS: RESP 16
[2025-03-14] MEDS: DIATRIZOATE MEGLUMINE 30% 100ML VIAL INSTIL ONE (18:43)
[2025-03-14] MEDS ORDERED: Nursing to Pharmacy Communication SCH (18:45)
--- NOTE | 2025-03-14 19:25 | Fluoroscopy Report ---
EXAM: FL retrograde includes kub CLINICAL HISTORY: RIGHT RETROGRADE, LASER, STENT TECHNIQUE: fluoroscopy intraoperative / one view COMPARISON: 01/13/2025 reviewed. FINDINGS: Fluoroscopy was provided for a right DJ ureteral stent. The distal tip appears to be within the mid-pelvic cavity/expected location of the urinary bladder. IMPRESSION: 1. Fluoroscopy was provided for a right ureteral DJ stent. 2. The distal tip appears to be within the mid-pelvic cavity/expected location of the urinary bladder. Electronically signed by Madan Montez 03-14-2025 7:24 PM
[2025-03-14] MEDS: ACETAMINOPHEN 325 MG TAB PO PRN (23:52)
[2025-03-15 06:51] LABS: Hematocrit (blood only) 40.7 % (37.0-47.0); Hemoglobin 13.5 g/dl (12.0-16.0); Mean Corpuscular Hemoglobin 30.1 pg (25.0-34.0); Mean Corpuscular Hgb Conc 33.2 g/dL (32.0-36.0); Mean Corpuscular Volume 90.6 fL (80.0-100.0); Mean Platelet Volume 10.3 fL (9.4-12.4); Platelet Count 240 K/uL (130-400); RDW Standard Deviation 46.5 fL (36.4-46.3); Red Blood Count 4.49 M/uL (4.20-5.40); White Blood Count 7.47 K/ul (4.8-10.8)
[2025-03-15 07:25] LABS: BUN Creatinine Ratio 22.2 (10-20); Blood Urea Nitrogen 14 mg/dl (6-23); Calcium 9.6 mg/dl (8.6-10.3); Carbon Dioxide 26 mmol/L (21-32); Chloride 108 mmol/L (98-107); Creatinine Clr Calc Pharmacy 73.5 ml/min; Glucose 124 mg/dl (70-99(Fasting))
[2025-03-15 07:41] VITALS: BP 119/71; PULSE 64; TEMP 97.7; O2SAT 93
[2025-03-15 07:42] LABS: Potassium 4.2 mmol/L (3.5-5.1)
--- NOTE | 2025-03-15 08:19 | Urology Progress Note ---
Date of Service March 15, 2025 Assessment & Plan (1) Right ureteral calculus: (2) Hydronephrosis: Plan: - Pt POD#1 s/p Cystoscopy with Right Ureteroscopy, Laser Lithotripsy, Basket Extraction of Stone, Retrograde pyelogram, and Stent Insertion - Doing well, progressing as expected - Afebrile, stable vitals - Lab work reviewed - creatinine 0.63, WBC 7.47 - Urine culture low counts of probable skin january - Blood cultures no growth to date - Tolerating right ureteral stent with minimal bother - Okay to d/c from perspective when medically stable - Recommend d/c with course of Tamsulosin, prn Pyridium and prn pain medication for stent management - Expected clinical course reviewed, all questions answered - Will arrange outpatient follow-up with our service for stent removal Admission and Anticipated Discharge Date Admission Date: March 13, 2025 Subjective Patient seen and examined at bedside this morning. She is awake and sitting up in bed. No acute issues overnight. Denies pain. Voiding spontaneously. Urine is clearing postprocedure. No fever or chills. Review of Systems Constitutional: as per Subjective / HPI Genitourinary: as per Subjective / HPI Physical Exam Constitutional: well developed and well nourished; no acute distress Respiratory: normal respiratory effort; no respiratory distress and no labored breathing Gastrointestinal (Abdomen): Inspection/Auscultation: abdomen normal to inspection Musculoskeletal: Head/Neck/Chest: normocephalic Neurologic: moves all extremities and awake Psychiatric: Orientation: alert and oriented x 3 Results & Data Vital Signs (Past 12 Hours) Vital Signs Temp Pulse Resp BP Pulse Ox O2 Del Method 03/15/25 07:40 36.5 C 64 16 119/71 93 Room Air 03/15/25 02:53 36.3 C L 66 16 131/84 92 Room Air 03/14/25 22:56 36.8 C 61 16 122/75 94 Room Air 03/14/25 20:47 36.7 C 62 16 127/77 94 Room Air PG Care Time/CCT Total # of Minutes Spent Total Time Spent with Patient: Total time spent is greater than 50% in coordination of care (as documented) at patient's floor/unit and/or counseling patient: Coding Level of Care Code 26540 SUB INP/OBS CARE 11/20MIN Diagnoses Right ureteral calculus N20.1 Hydronephrosis N13.30
--- NOTE | 2025-03-15 11:12 | Hospitalist Progress Note ---
Date of Service March 15, 2025 Assessment & Plan (1) Hydronephrosis concurrent with and due to calculi of kidney and ureter: Plan: Status post cystoscopy, right ureteroscopy, laser lithotripsy and basket extraction of stone with stent placement on 03/14/2025 Appreciate urology input and recommendation Patient remains stable and denies any significant symptoms She will have appointment with urologist as an outpatient for possible stent removal She will be discharged home this afternoon (2) Suspected UTI: Plan: No evidence of UTI as urine culture and blood cultures have been negative Patient remains free from any symptoms Antibiotic will be discontinued (3) Bilateral nephrolithiasis: (4) Pre-diabetes: Plan Note from the prior hospitalist: Patient 74-year-old female who presented with urinary complaints and has been on and off antibiotics. Imaging in the ED showed an obstructing 9 mm right ureteral stone with hydronephrosis. Patient to go undergo urological intervention today Continue antibiotics Monitor urine culture Anticipate discharge tomorrow provided uneventful postoperative course. Admission and Anticipated Discharge Date Admission Date: March 13, 2025 Subjective 03/15/2025 The patient was seen and examined in medical floor She has been feeling much better and denies any significant symptoms No back pain or abdominal pain and no problem with urine or bowel habit She has been ambulating without any difficulties She wants to be discharged and will be discharged home this afternoon Review of Systems Review of Systems: All systems reviewed and are unremarkable except as noted below Physical Exam Physical Exam: Lying in bed without any acute distress Constitutional: well developed, well nourished and + obese; not ill appearing Eyes: PERRL, conjunctivae normal, anicteric sclerae ENMT: external ear and nose normal, oropharynx normal Neck: trachea midline, no thyromegaly Respiratory: no respiratory distress Auscultation: lungs clear to auscultation bilaterally Cardiovascular: Rate/Rhythm: regular rate and regular rhythm; not tachycardic Heart Sounds: normal S1 and normal S2; no murmur Gastrointestinal (Abdomen): Inspection/Auscultation: normal bowel sounds; abdomen not distended Percussion/Palpation: abdomen soft; abdomen nontender Musculoskeletal: No acute arthritis involving any of the joint Neurologic: normal touch/pain/proprioception and moves all extremities; no focal motor deficits Psychiatric: A+Ox3, euthymic affect Lymphatic: no cervical or axillary lymphadenopathy Results & Data Results & Data Vital Signs (Past 12 Hours) Vital Signs Temp Pulse Resp BP Pulse Ox O2 Del Method 03/15/25 07:40 36.5 C 64 16 119/71 93 Room Air 03/15/25 02:53 36.3 C L 66 16 131/84 92 Room Air Laboratory Results Short CBC 03/15/25 Range/Units 06:14 WBC 7.47 (4.8-10.8) K/ul Hgb 13.5 (12.0-16.0) g/dl Hct 40.7 (37.0-47.0) % Plt Count 240 (130-400) K/uL BMP 03/15/25 03/15/25 06:14 06:21 Sodium TNP 141 Potassium TNP 4.2 Chloride 108 H Carbon Dioxide 26 BUN 14 Creatinine 0.63 Glucose 124 H Calcium 9.6 Medications Administered Current Inpatient Medications Acetaminophen (Acetaminophen 325 Mg Tab) 650 mg PO Q4H PRN PRN Reason: Mild Pain (Scale 1, 2, 3) Stop: 04/12/25 13:35 Last Admin: 03/14/25 23:52 Dose: 650 mg Atorvastatin Calcium (Atorvastatin 20 Mg Tab) 20 mg PO HS DARSHAN Stop: 04/12/25 20:59 Last Admin: 03/14/25 21:09 Dose: 20 mg Dextrose (Dextrose 50% 50 Ml Syringe) 25 - 50 ml IV UD PRN; Protocol PRN Reason: Hypoglycemia Protocol Stop: 04/12/25 13:35 Glucagon (Glucagon For Inj 1 Mg Vial) 1 mg SQ UD PRN; Protocol PRN Reason: Hypoglycemia Protocol Stop: 04/12/25 13:35 Glucose (Glucose 40% Gel 15 Gm Tube) 15 - 30 gm PO UD PRN; Protocol PRN Reason: Hypoglycemia Protocol Stop: 04/12/25 13:35 Glucose (Glucose 10 Tab/Tube) 4 - 8 tab PO UD PRN; Protocol PRN Reason: Hypoglycemia Protocol Stop: 04/12/25 13:35 Hydromorphone HCl (Hydromorphone Inj 0.5 Mg/0.5 Ml Syr) 1 mg IV Q6H PRN PRN Reason: Severe Pain (Scale 7, 8, 9,10) Stop: 03/27/25 15:29 Cefepime HCl (Maxipime 2000mg) 2,000 mg in 20 mls @ 5 mls/min IV Q8H DARSHAN; Protocol Stop: 03/15/25 13:59 Last Admin: 03/15/25 05:08 Dose: 5 mls/min Sodium Chloride (Nss) 1,000 mls @ 80 mls/hr IV .[id number] [facility] Stop: 03/16/25 12:14 Last Admin: 03/14/25 21:19 Dose: 80 mls/hr Insulin Aspart (Insulin Aspart Per Unit Charge) 0 units SC ACHS [facility] Stop: 04/13/25 05:59 Last Admin: 03/15/25 09:22 Dose: Not Given Miscellaneous (Carbohydrates For Hypoglycemia ) 15 - 30 gm PO UD PRN PRN Reason: Hypoglycemia Protocol Stop: 04/12/25 13:35 Ondansetron HCl (Ondansetron Inj 2 Mg/Ml 2 Ml Vial) 4 mg IV Q6H PRN PRN Reason: Nausea Stop: 04/12/25 13:35 Oxycodone HCl (Oxycodone Hcl Ir 5 Mg Tab (Immediate Release)) 5 mg PO Q4H PRN PRN Reason: Moderate Pain (Scale 4, 5, 6) Stop: 03/27/25 15:38 Last Admin: 03/14/25 21:16 Dose: 5 mg Polyethylene Glycol (Polyethylene (Miralax) 17 Gm Pack) 17 gm PO DAILY PRN PRN Reason: Constipation Stop: 04/12/25 13:35 Tamsulosin HCl (Tamsulosin Hcl 0.4 Mg Cap) 0.[address] [facility] Stop: 04/13/25 08:59 Last Admin: 03/15/25 07:41 Dose: 0.4 mg Vitamin D (Cholecalciferol 25 Mcg (1000 Units) Tab) [address] [facility] Stop: 04/13/25 08:59 Last Admin: 03/15/25 07:41 Dose: 25 mcg
--- NOTE | 2025-03-16 07:14 | Discharge Summary ---
Date of Service March 16, 2025 Admission HPI Per Admitting Provider Ms Westbrook is a 74 year old woman with past medical history remarkable for atrophic vaginitis, cystocele, nephrolithiasis, prediabetes, osteoarthritis who presented to [facility] ED due to right flank pain. Patient now s/p lithotripsy on 01/13/2025 of a 6 mm calculus within the left UVJ resulting in mild hydroureteronephrosis with stent removal as of 01/17/2025. Patient with history of ESBL. Patient states that she was in her usual state of health until Friday when she noted dysuria, urinary frequency, then flank pain. She denies any fever, nausea, vomiting, chest pain, palpitations, changes in bowel habits or other acute concerns. Patient called her urologist on Sunday 03/11, for which she obtained a script for macrobid. Urine culture at that time was notable for mixed january. Patient then notes increasing pain prompting her presentation to the ED. She denies EtOH use, reports remote tobacco use, and denies any illicit substance use. In the ED, vitals were notable for BP of 120-140s, HR of 60s-70s and O2 sat of mid-high 90s on room air Labs are without leukocytosis nor RAPHAEL; UA with trace blood, + LE, negative bacteria and negative nitrite Imaging revealed moderate right-sided hydroureteronephrosis secondary to a 9 mm obstructing calculus within the right UVJ ED interventions: CTX Consultants: Urology Patient to be admitted to med surg for further evaluation and management of right sided obstructing calculus Admission Exam Per Admitting Provider Physical Exam: GENERAL APPEARANCE: AxOx4, generally well-appearing F, no acute distress but some mild discomfort with repositioning HEENT: NC, AT. MMM. EOMI, clear conjunctiva, oropharynx clear. NECK: Supple without lymphadenopathy. No stiffness or restricted ROM. HEART: Normal rate and regular rhythm, normal S1/S1, no m/r/g LUNGS: CTAB, moving air well. No crackles or wheezes are heard. ABDOMEN: Soft, nontender, nondistended with good bowel sounds heard. BACK: ++ R CVAT, no obvious deformity. EXTREMITIES: Without cyanosis, clubbing or edema. NEUROLOGICAL: Grossly nonfocal. Alert and oriented, moving all 4 extremities. C N not formally tested but appear grossly intact. Observed to ambulate with normal gait. Skin: Warm and dry without any rash. Principal Diagnosis Right hydronephrosis due to obstructive ureteral stone Discharge Exam Lying in bed without any acute distress Constitutional well developed, well nourished and + obese; not ill appearing Eyes PERRL, conjunctivae normal, anicteric sclerae ENMT external ear and nose normal, oropharynx normal Neck trachea midline, no thyromegaly Respiratory no respiratory distress Auscultation: lungs clear to auscultation bilaterally Cardiovascular Rate/Rhythm: regular rate and regular rhythm; not tachycardic Heart Sounds: normal S1 and normal S2; no murmur Gastrointestinal (Abdomen) Inspection/Auscultation: normal bowel sounds; abdomen not distended Percussion/Palpation: abdomen soft; abdomen nontender Neurologic normal touch/pain/proprioception and moves all extremities; no focal motor deficits Psychiatric A+Ox3, euthymic affect Lymphatic no cervical or axillary lymphadenopathy Discharge Data Allergies Allergy/AdvReac Type Severity Reaction Status Date / Time No Known Allergies Allergy Verified 03/13/25 11:25 Consultations 03/13/25 11:12 Consult Urology Routine 03/13/25 11:35 ED Decision to Admit Stat Procedures Performed Operation Date: 03/14/25 07:00 Actual Procedures p Cystoscopy, Right Ureteroscopy, Laser Lithotripsy and Basket Extraction of Stone, (Right) - Nael Shaw DO s Stent Insertion - Right(Right) - Nael Shaw DO Ordered Studies 03/13/25 09:56 CT abd pelvis wo con Stat 03/14/25 08:17 FL retrograde includes kub Routine Hospital Course (1) Hydronephrosis concurrent with and due to calculi of kidney and ureter: Status post cystoscopy, right ureteroscopy, laser lithotripsy and basket extraction of stone with stent placement on 03/14/2025 Appreciate urology input and recommendation Patient remains stable and denies any significant symptoms She will have appointment with urologist as an outpatient for possible stent removal She will be discharged home this afternoon (2) Suspected UTI: No evidence of UTI as urine culture and blood cultures have been negative Patient remains free from any symptoms Antibiotic will be discontinued (3) Bilateral nephrolithiasis: (4) Pre-diabetes: Plan Note from the prior hospitalist: Patient 74-year-old female who presented with urinary complaints and has been on and off antibiotics. Imaging in the ED showed an obstructing 9 mm right ureteral stone with hydronephrosis. Patient to go undergo urological intervention today Continue antibiotics Monitor urine culture Anticipate discharge tomorrow provided uneventful postoperative course. Total Time Total Time Spent Total Time Spent (In Minutes): 35 Minutes Discharge Plan Discharge Items Patient Disposition: Home - Self-Care Reason For Visit: OBSTRUCTIVE NEPHROLITHIASIS Discharge Diagnosis: Right hydronephrosis due to obstructive ureteral stone Condition on Discharge: Fair Activity: Resume your previous activity Non-emergency contact: Primary Care Provider and Urologist Call non-emergency contact if: your symptoms worsen, your pain is concerning for you and you have a fever Follow-up/Referrals: Nael Shaw DO [Physician] - 03/18/25 8:15 am Krystal Fuentes MD [Primary Care Provider] - 03/22/25 9:00 am (Date & Time 03/22/2025 9:00 AM Provider: Josie Justice MD Family Medicine [facility] ) Diet: Other - See Diet Comment Diet Comment: Resume previous diet Addtl Attending Provider Instructions: Follow-up with urology Follow-up with PCP Please take precautions to avoid falls Take your medications as advised Drink more fluid to avoid dehydration and UTI Pending Studies at Discharge: No Studies:: Final cultures Stand-Alone Forms: My [facility], Smoking Cessation Medications and DC Order Prescriptions: New tamsulosin 0.4 mg Capsule 0.4 mg PO QAM Qty: 30 0RF phenazopyridine [Pyridium] 200 mg tablet 200 mg PO Q8H PRN (Reason: pain) Qty: 6 0RF Continued metformin 500 mg Tablet 500 mg PO BIDWMEAL atorvastatin 20 mg Tablet 20 mg PO HS cholecalciferol (vitamin D3) [Vitamin D3] 25 mcg (1,000 unit) Tablet 25 mcg PO QAM meloxicam 15 mg tablet 15 mg PO DAILY Discontinued nitrofurantoin monohyd/m-cryst [Macrobid] 100 mg capsule 100 mg PO Q12H 5 Days Qty: 10 0RF Rx Instructions: must administer with a meal/food. Start Date 03/11/25 x5 day supply Discharge Orders: Discharge Order (Routine); Ordered 03/15/25 Ordered By: Tara Lynne Admission Data Admit Date/Time: 03/13/25 11:53 Attending Provider: Tara Lynne Admit Provider: Shyann Aguilar Primary Care Provider: Krystal Fuentes Other Providers: Nael Shaw; Shyann Aguilar; Rodger Zuleta Other Interventions: Discharge Summary Assessment (RN) Last Done: 03/15/25 12:01
== END 2025-03-15 12:23 | disposition home or self-care (01) | DRG 661 ==
LOC: ED 09:37 → 3N 11:53 → SUATTDRO 11:53 → 3N 13:14